=== PATIENT | male | born 1955 | race Caucasian/White ===

== ENCOUNTER 2016-05-26 15:49 | Inpatient (IN) | payer OTHER ==
[~2016-05-26] VITALS: Ht 182.9 cm; Wt 105.1 kg
[~2016-05-26 15:49] MED LIST: DEPA500T3 PO; FOLI1TAB PO; HALO5 PO; MAGN400T19 PO; TAB-TAB PO; THIA100T PO
[2016-05-26] MEDS ORDERED: MORPHINE SULFATE 8 MG/ML INJ ONE (15:54)
[2016-05-26] MEDS ORDERED: ONDANSETRON HCL 4 MG/2 ML VIAL ONE (15:54)
[2016-05-26] MEDS ORDERED: PROPOFOL 500 MG/50 ML INJ 50 ML ONE (15:54)
[2016-05-26 16:14] VITALS: O2SAT 100
[2016-05-26] MEDS ORDERED: DIPHTH/TETANUS/ACEL PERTUSSIS (BOOSTER) 0.5 ML VIAL/PFS IM ONE (16:23)
[2016-05-26] MEDS ORDERED: IOHEXOL 350 MG/ML 10 ML VIAL (for RAD DIAG) IV ONE (16:31)
--- NOTE | 2016-05-26 16:32 | RADRPT ---
EXAM DATE/TIME: 05/26/2016 15:45 [facility] COMPARISON: No previous studies available for comparison. INDICATIONS : Trauma alert, fall from tree. MEDICAL HISTORY : None. SURGICAL HISTORY : None. ENCOUNTER: Initial ACUITY: 1 day PAIN SCORE: Non-responsive. LOCATION: Right shoulder. FINDINGS: There is anterior dislocation. A fracture is not seen. The acromioclavicular joint is aligned. There is hypertrophic change at the acromioclavicular joint.. CONCLUSION: Anterior humeral head dislocation. Fausto Jay MD on May 26, 2016 at 16:29 Board Certified Radiologist. This report was verified electronically.
[2016-05-26 16:34] LABS: AUTOMATED NEUTROPHIL # 7.3 TH/MM3 (1.8-7.7); BASOPHIL # 0.1 TH/MM3 (0-0.2); BASOPHIL % 1.1 % (0.0-2.0); EOSINOPHIL # 0.3 TH/MM3 (0-0.4); EOSINOPHIL % 2.4 % (0.0-4.0); HEMATOCRIT 36.8 % (39.0-51.0); HEMO FLAGS DIFF FINAL; LYMPH % 27.2 % (9.0-44.0); LYMPHOCYTE # 3.2 TH/MM3 (1.0-4.8); MEAN CELL VOLUME 93.6 FL (80.0-100.0); MEAN CORPUSCULAR HEMOGLOBIN 32.7 PG (27.0-34.0); MEAN CORPUSCULAR HGB CONC 34.9 % (32.0-36.0); MONO % 7.2 % (0.0-8.0); NEUT % 62.1 % (16.0-70.0); PLATELET COUNT 182 TH/MM3 (150-450); RED BLOOD COUNT 3.94 MIL/MM3 (4.50-5.90); RED CELL DISTRIBUTION WIDTH 13.3 % (11.6-17.2); WHITE BLOOD COUNT 11.7 TH/MM3 (4.0-11.0)
--- NOTE | 2016-05-26 16:34 | RADRPT ---
EXAM DATE/TIME: 05/26/2016 15:45 [facility] COMPARISON: No previous studies available for comparison. INDICATIONS : Trauma alert, fall from tree. MEDICAL HISTORY : None. SURGICAL HISTORY : None. ENCOUNTER: Initial ACUITY: 1 day PAIN SCORE: Non-responsive. LOCATION: chest FINDINGS: The heart size is normal. The lungs are clear. There is anterior dislocation of the right humeral hea d. There is fracturing of the greater tubercle with a separate greater tubercle fracture fragments se en. There is some overlap of the distal left clavicle. It is difficult to determine if this is acute or chronic change. There appear to be left upper rib fractures. The age of these rib fractures is not known. CONCLUSION: 1. Acute anterior dislocation of the right humeral head with fracturing of the greater tubercle. 2. Deformity at the distal left clavicle and several left upper ribs. The age of these deformities is not known. Fausto Jay MD on May 26, 2016 at 16:31 Board Certified Radiologist. This report was verified electronically.
--- NOTE | 2016-05-26 16:36 | RADRPT ---
EXAM DATE/TIME: 05/26/2016 15:45 [facility] COMPARISON: No previous studies available for comparison. INDICATIONS : Trauma alert, fall from tree. MEDICAL HISTORY : None. SURGICAL HISTORY : None. ENCOUNTER: Initial ACUITY: 1 day PAIN SCORE: Non-responsive. LOCATION: Pelvis. FINDINGS: There appears be widening and malalignment at the pubic symphysis. The hip joints are overlying. CONCLUSION: Suspected widening of the pubic symphysis. The patient is scheduled for CT examination of the abdomen and pelvis. Fausto Jay MD on May 26, 2016 at 16:33 Board Certified Radiologist. This report was verified electronically.
[2016-05-26 16:41] LABS: I-STAT POTASSIUM 7.1 MMOL/L (3.5-4.9)
[2016-05-26 16:43] LABS: APTT (PATIENT) 24.2 SEC (24.3-30.1); PROTHROMBIN TIME - PATIENT 10.5 SEC (9.8-11.6)
--- NOTE | 2016-05-26 16:46 | RADRPT ---
EXAM DATE/TIME: 05/26/2016 16:21 [facility] COMPARISON: No previous studies available for comparison. INDICATIONS : Trauma alert. Fall from ladder. RADIATION DOSE: 54.88 CTDIvol (mGy) MEDICAL HISTORY : Unobtainable. SURGICAL HISTORY : Unobtainable. ENCOUNTER: Initial ACUITY: 1 day PAIN SCALE: 0/10 LOCATION: cranial TECHNIQUE: Multiple contiguous axial images were obtained of the head. Using automated exposure control and adj ustment of the mA and/or kV according to patient size, radiation dose was kept as low as reasonably a chievable to obtain optimal diagnostic quality images. FINDINGS: CEREBRUM: The ventricles are normal for age. No evidence of midline shift, mass lesion, or acute infarction. T here is a small 3 mm thick extra-axial linear area of increased density at the right parietal likely worsening and minimal subdural hemorrhage. POSTERIOR FOSSA: The cerebellum and brainstem are intact. The 4th ventricle is midline. The cerebellopontine angle i s unremarkable. EXTRACRANIAL: The visualized portion of the orbits is intact. SKULL: The calvaria is intact. No evidence of skull fracture. CONCLUSION: Suspected thin subdural collection over the right parietal lobe measuring no more than 3 mm. Fausto Jay MD on May 26, 2016 at 16:40 Board Certified Radiologist. This report was verified electronically.
--- NOTE | 2016-05-26 17:06 | RADRPT ---
EXAM DATE/TIME: 05/26/2016 16:21 [facility] COMPARISON: No previous studies available for comparison. INDICATIONS : Trauma alert. Fall from ladder. RADIATION DOSE: 23.86 CTDIvol (mGy) MEDICAL HISTORY : Unobtainable. SURGICAL HISTORY : Unobtainable. ENCOUNTER: Initial ACUITY: 1 day PAIN SCALE: 0/10 LOCATION: Cervical spine. TECHNIQUE: Volumetric scanning of the cervical spine was performed. Multiplanar reconstructions in the sagittal, coronal and oblique axial planes were performed. Using automated exposure control and adjustment o f the mA and/or kV according to patient size, radiation dose was kept as low as reasonably achievable to obtain optimal diagnostic quality images. FINDINGS: Axial tomograms with multiplanar reformats were performed of the cervical spine without contrast. The craniocervical and cervical vertebral body alignment is intact. Vertebral bodies and posterior el ements are intact. The facet joints are satisfactory aligned. There are no soft tissue abnormalities. Mild to moderate degenerative disease is noted at C4-5, C5-6 and C6-7. There is disc space narrowing with marginal spondylosis. There is no evidence of acute epidural abnormality. There is no evidence o f spinal stenosis. CONCLUSION: No evidence of acute bony or soft tissue trauma. Mild to moderate degenerative disc disease. Sandip Gregg MD on May 26, 2016 at 17:01 Board Certified Radiologist. This report was verified electronically.
[2016-05-26 17:10] VITALS: O2SAT 100
[2016-05-26] MEDS ORDERED: ONDANSETRON HCL 4 MG/2 ML VIAL IV PRN (17:15)
[2016-05-26] MEDS ORDERED: NALOXONE HCL 0.4 MG/ML AMP IV PRN (17:15)
[2016-05-26] MEDS ORDERED: Post-op Orders (for Pharmacy) MISC XX ONE (17:15)
[2016-05-26] MEDS ORDERED: SODIUM CHLORIDE 0.9% FLUSH 5 ML FLUSH IVF PRN (17:15)
[2016-05-26] MEDS: MORPHINE SULFATE 4 MG/ML INJ IV PRN ×2 (17:33→22:00)
[2016-05-26] MEDS: SODIUM CHLOR 0.9% 1000 ML INJ 1,000 ML IV SCH (17:34)
--- NOTE | 2016-05-26 17:40 | RADRPT ---
EXAM DATE/TIME: 05/26/2016 16:31 [facility] COMPARISON: No previous studies available for comparison. INDICATIONS : Trauma alert. Fall from ladder. IV CONTRAST: 91 cc Omnipaque 350 (iohexol) IV RADIATION DOSE: 23.59 CTDIvol (mGy) ; Combined studies - Thorax/Abdomen/Pelvis MEDICAL HISTORY : Unobtainable. SURGICAL HISTORY : Unobtainable. ENCOUNTER: Initial ACUITY: 1 day PAIN SCALE: 0/10 LOCATION: Chest. TECHNIQUE: Volumetric scanning of the chest was performed. Using automated exposure control and adjustment of t he mA and/or kV according to patient size, radiation dose was kept as low as reasonably achievable to obtain optimal diagnostic quality images. FINDINGS: LUNGS: There is no consolidation or pneumothorax. No concerning pulmonary nodule is visualized. PLEURA: There is no pleural thickening or pleural effusion. MEDIASTINUM: The heart and great vessels demonstrate no acute abnormality. There is no mediastinal or hilar lymph adenopathy. AXILLAE: Within normal limits. No lymphadenopathy. SKELETAL: Significant traumatic bone injuries noted. There is a sub-glenoid fracture dislocation of the right s houlder joint. A large avulsion fracture containing the greater tuberosity is identified. A comminuted fracture is identified through the lateral left clavicle. A fracture the scapular s pine is also noted. The humeral head remains well-seated within the glenoid fossa. Multiple left-sided rib fractures involving the first through fifth ribs are noted. MISCELLANEOUS: The visualized upper abdominal organs demonstrate no acute abnormality. Small calcified gallstones ar e identified. CONCLUSION: Significant bony trauma with fracture dislocation of the right shoulder joint, comminuted fracture of the left clavicle, fracture left scapula and multiple left upper rib fractures. No evidence of pneumothorax or significant airspace disease. No evidence of mediastinal soft tissue or vascular injury. Cholelithiasis. Sandip Gregg MD on May 26, 2016 at 17:05 Board Certified Radiologist. This report was verified electronically.
--- NOTE | 2016-05-26 17:47 | RADRPT ---
EXAM DATE/TIME: 05/26/2016 16:31 [facility] COMPARISON: CT THORAX W CONTRAST, May 26, 2016, 16:31. INDICATIONS : Trauma alert. Fall from ladder. IV CONTRAST: 91 cc Omnipaque 350 (iohexol) IV ORAL CONTRAST: No oral contrast ingested. RADIATION DOSE: 23.59 CTDIvol (mGy) ; Combined studies - Thorax/Abdomen/Pelvis MEDICAL HISTORY : Unobtainable. SURGICAL HISTORY : Unobtainable. ENCOUNTER: Initial ACUITY: 1 day PAIN SCALE: 0/10 LOCATION: All quadrants. TECHNIQUE: Volumetric scanning of the abdomen and pelvis was performed. Using automated exposure control and ad justment of the mA and/or kV according to patient size, radiation dose was kept as low as reasonably achievable to obtain optimal diagnostic quality images. FINDINGS: LOWER LUNGS: The visualized lower lungs are clear. LIVER: Homogeneous density without lesion. There is no dilation of the biliary tree. There are calcified ga llstones. SPLEEN: Normal size without lesion. PANCREAS: Within normal limits. KIDNEYS: Normal in size and shape. There is no mass, stone or hydronephrosis. ADRENAL GLANDS: Within normal limits. VASCULAR: There is no aortic aneurysm. BOWEL/MESENTERY: The stomach, small bowel, and colon demonstrate no acute abnormality. There is no free intraperitone al air or fluid. There some scattered colonic diverticula. ABDOMINAL WALL: Within normal limits. RETROPERITONEUM: There is no lymphadenopathy. BLADDER: No wall thickening or mass. REPRODUCTIVE: Within normal limits. INGUINAL: There is no lymphadenopathy or hernia. MUSCULOSKELETAL: The pubic symphysis does appear aligned. There is degenerative change in the lumbar spine. CONCLUSION: No acute abnormality is seen. There are calcified gallstones, sigmoid colon diverticula, and degenera tive change in the lumbar spine. Fausto Jay MD on May 26, 2016 at 17:41 Board Certified Radiologist. This report was verified electronically.
--- NOTE | 2016-05-26 17:58 | PD ---
HPI Chief Complaint: Trauma (Alert) Time Seen by Provider: 16:12 Travel History International Travel<30 days: No Contact w/Intl Traveler<30days: No Traveled to known affect area: No History of Present Illness HPI The patient is a approximate 65-year-old male who presents to the emergency department via EMS as a trauma alert. According to EMS the patient was trimming trees earlier tonight, was approximately 25 feet off the ground, when he fell. According to EMS the patient fell against a concrete flower bed and was noted to have abrasions across the left shoulder and upper back. The patient complains of back pain along the upper thoracic region as well as right shoulder pain with obvious deformity. The patient denies any loss of consciousness or neck pain. The patient denies any anterior chest pain, shortness breath, nausea, vomiting, or abdominal pain. He does admit to drinking alcohol earlier today. He denies any numbness or tingling in the upper or lower extremities, but does note significant right shoulder pain with limited ability to move the right shoulder. [facility] Past Medical History Medical History: Denies Significant Hx Past Surgical History Surgical History: No Previous Surgery Family History Family History: Negative Social History Alcohol Use: Yes Tobacco Use: Yes Allergies-Medications (Allergen,Severity, Reaction): Coded Allergies: No Known Allergies (Unverified , 05/26/16) Review of Systems Except as stated in HPI: all other systems reviewed are Neg HENT: No: Headaches, Neck Pain Cardiovascular: No: Chest Pain or Discomfort Respiratory: No: Shortness of Breath Gastrointestinal: No: Nausea, Vomiting, Abdominal Pain Musculoskeletal: Positive: Limited ROM, Pain Neurologic: No: Dizziness, Headache, Change in Mentation Physical Exam Narrative GENERAL: Awake, alert, up approximately 62 year-old male who presents on a backboard with cervical collar in place. SKIN: Superficial abrasions noted over the posterior left shoulder. HEAD: Atraumatic. Normocephalic. EYES: Pupils equal and round. Pupils are 3 mm bilateral and reactive. ENT: No nasal bleeding or discharge. Poor dentition. NECK: Trachea midline. No JVD. Cervical collar in place. CARDIOVASCULAR: Regular rate and rhythm. No murmur appreciated. Heart rate in the 80s. RESPIRATORY: No accessory muscle use. Clear to auscultation. Breath sounds equal bilaterally. GASTROINTESTINAL: Abdomen soft, non-tender, nondistended. No rebound tenderness. MUSCULOSKELETAL: Obvious deformity of the right shoulder. Patient is unable to abduct or extend at the right shoulder. Patient is able flex and extend the right wrist as well as sealer dry cell with the right hand. Positive right radial pulse. Patient is able to move the left upper extremity. Tenderness over the left clavicle. The patient is able flex and extend the hips and knees bilaterally. Distal pulses are intact. NEUROLOGICAL: Eyes open, alert, oriented, some repetitive questioning. Moves all 4 extremities, limited range of motion of the right upper extremity. Back: Tenderness over the right scapula and left scapula as well as abrasion noted over the posterior left shoulder. PSYCHIATRIC: Appropriate mood and affect; insight and judgment normal. Data Data Last Documented VS Vital Signs Date Time Temp Pulse Resp B/P Pulse Ox O2 Delivery O2 Flow Rate FiO2 05/26/16 16:14 100 2.00 Orders Morphine Inj (Morphine Inj) (05/26/16 15:54) Ondansetron Inj (Zofran Inj) (05/26/16 15:54) Propofol 500 Mg/50 Ml Inj (Diprivan 500 (05/26/16 15:54) I-Stat Profile (05/26/16 15:54) I-Stat Creatinine (05/26/16 15:54) Complete Blood Count With Diff (05/26/16 15:54) Prothrombin Time / Inr (Pt) (05/26/16 15:54) Act Partial Throm Time (Ptt) (05/26/16 15:54) Type And Screen (05/26/16 15:54) Alcohol (Ethanol) (05/26/16 15:54) Chest, Single Ap (05/26/16 15:54) Pelvis, Ap Only (Routine) (05/26/16 15:54) Ct Brain W/O Iv Contrast(Rout) (05/26/16 15:54) Ct Cerv Spine W/O Contrast (05/26/16 15:54) Ct Abd/Pel W Iv Contrast(Rout) (05/26/16 15:54) Ct Thorax/ Chest W Iv Contrast (05/26/16 15:54) Iv Access Insert/Monitor (05/26/16 15:54) Ecg Monitoring (05/26/16 15:54) Oximetry (05/26/16 15:54) Oxygen Administration (05/26/16 15:54) Shoulder, One View (05/26/16 ) [id number] (Booster) Inj (Boostrix (05/26/16 16:23) Admit Order (Ed Use Only) (05/26/16 16:43) Labs Laboratory Tests Test 05/26/16 16:10 White Blood Count 11.7 TH/MM3 Red Blood Count 3.94 MIL/MM3 Hemoglobin 12.9 GM/DL Bedside Hemoglobin 13.6 G/DL Hematocrit 36.8 % Bedside Hematocrit 40.0 % Mean Corpuscular Volume 93.6 FL Mean Corpuscular Hemoglobin 32.7 PG Mean Corpuscular Hemoglobin 34.9 % Concent Red Cell Distribution Width 13.3 % Platelet Count 182 TH/MM3 Mean Platelet Volume 8.1 FL Neutrophils (%) (Auto) 62.1 % Lymphocytes (%) (Auto) 27.2 % Monocytes (%) (Auto) 7.2 % Eosinophils (%) (Auto) 2.4 % Basophils (%) (Auto) 1.1 % Neutrophils # (Auto) 7.3 TH/MM3 Lymphocytes # (Auto) 3.2 TH/MM3 Monocytes # (Auto) 0.8 TH/MM3 Eosinophils # (Auto) 0.3 TH/MM3 Basophils # (Auto) 0.1 TH/MM3 CBC Comment DIFF FINAL Differential Comment Prothrombin Time 10.5 SEC Prothromb Time International 1.0 RATIO Ratio Activated Partial 24.2 SEC Thromboplast Time Bedside Sodium 139 MMOL/L Bedside Potassium 7.1 MMOL/L Bedside Chloride 105 MMOL/L Bedside Blood Urea Nitrogen 21 MG/DL Bedside Creatinine 1.0 MG/DL Bedside Glucose 102 MG/DL Ethyl Alcohol Level 127 MG/DL Blood Type A POSITIVE Antibody Screen NEGATIVE [facility] Medical Screen Exam Complete: Yes Emergency Medical Condition: Yes Medical Record Reviewed: No (Fausto Schwartz upon arrival) EKG Prior to Arrival: No Interpretation(s) CT of the thorax reveals significant traumatic bony injuries with a subglenoid fracture dislocation of the right shoulder joint. A large avulsion fracture containing the greater tuberosity is identified. A comminuted fractures identified to the left lateral clavicle. A fracture of the scapular spine is also noted. The humeral head remains well-seated within the glenoid fossa. No evidence of pneumothorax or significant airspace disease. CT of the abdomen and pelvis reveals no acute abnormality seen. There are calcified gallstones, sigmoid colon diverticula, and degenerative changes in the lumbar spine. Last Impressions Pelvis X-Ray 05/26/16 1554 Signed Impressions: Service Date/Time: Thursday, May 26, 2016 15:45 - CONCLUSION: Suspected widening of the pubic symphysis. The patient is scheduled for CT examination of the abdomen and pelvis. Fausto Jay MD Head CT 05/26/16 1554 Signed Impressions: Service Date/Time: Thursday, May 26, 2016 16:21 - CONCLUSION: Suspected thin subdural collection over the right parietal lobe measuring no more than 3 mm. Fausto Jay MD Chest X-Ray 05/26/16 1554 Signed Impressions: Service Date/Time: Thursday, May 26, 2016 15:45 - CONCLUSION: 1. Acute anterior dislocation of the right humeral head with fracturing of the greater tubercle. 2. Deformity at the distal left clavicle and several left upper ribs. The age of these deformities is not known. Fausto Jay MD Cervical Spine CT 05/26/16 1554 Signed Impressions: Service Date/Time: Thursday, May 26, 2016 16:21 - CONCLUSION: No evidence of acute bony or soft tissue trauma. Mild to moderate degenerative disc disease. Sandip Gregg MD Shoulder X-Ray 05/26/16 0000 Signed Impressions: Service Date/Time: Thursday, May 26, 2016 15:45 - CONCLUSION: Anterior humeral head dislocation. Fausto Jay MD Laboratory Tests Test 05/26/16 16:10 White Blood Count 11.7 TH/MM3 Red Blood Count 3.94 MIL/MM3 Hemoglobin 12.9 GM/DL Bedside Hemoglobin 13.6 G/DL Hematocrit 36.8 % Bedside Hematocrit 40.0 % Mean Corpuscular Volume 93.6 FL Mean Corpuscular Hemoglobin 32.7 PG Mean Corpuscular Hemoglobin 34.9 % Concent Red Cell Distribution Width 13.3 % Platelet Count 182 TH/MM3 Mean Platelet Volume 8.1 FL Neutrophils (%) (Auto) 62.1 % Lymphocytes (%) (Auto) 27.2 % Monocytes (%) (Auto) 7.2 % Eosinophils (%) (Auto) 2.4 % Basophils (%) (Auto) 1.1 % Neutrophils # (Auto) 7.3 TH/MM3 Lymphocytes # (Auto) 3.2 TH/MM3 Monocytes # (Auto) 0.8 TH/MM3 Eosinophils # (Auto) 0.3 TH/MM3 Basophils # (Auto) 0.1 TH/MM3 CBC Comment DIFF FINAL Differential Comment Prothrombin Time 10.5 SEC Prothromb Time International 1.0 RATIO Ratio Activated Partial 24.2 SEC Thromboplast Time Bedside Sodium 139 MMOL/L Bedside Potassium 7.1 MMOL/L Bedside Chloride 105 MMOL/L Bedside Blood Urea Nitrogen 21 MG/DL Bedside Creatinine 1.0 MG/DL Bedside Glucose 102 MG/DL Ethyl Alcohol Level 127 MG/DL Blood Type A POSITIVE Antibody Screen NEGATIVE Differential Diagnosis Differential diagnosis includes intracranial hemorrhage, skull fracture, scapular fracture, thoracic spine fracture, pneumothorax, hemothorax, shoulder dislocation, shoulder fracture, humeral fracture, multisystem trauma. Narrative Course ATLS protocol was followed. The trauma surgeon, Dr. Noland, was present when the patient arrived. Upon arrival the patient's airway, breathing, circulation were intact. 2 large-bore IVs were established, labs were drawn and sent, and the patient was placed on cardiac telemetry monitoring and continuous pulse oximetry monitoring. Chest x-ray, pelvis x-ray, and right shoulder x-ray were obtained. The patient did have a fracture/dislocation of the right shoulder. The patient had conscious sedation with respiratory therapy at bedside, on O2 via nasal cannula, with 150 mg of propofol. We were unable to reduce the right shoulder fracture/dislocation with external rotation and abduction, multiple attempts were performed by myself and Dr. Petty. Therefore, the patient was placed in position of a fever, patient was log rolled off the backboard, the back was inspected. The patient then went to the CT suite with the trauma team. The patient was noted to have a thin subdural hemorrhage as well as right shoulder fracture/dislocation and left scapula fracture. The patient went straight to [facility]. Multiple calls were placed to the orthopedist public relations representative, Dr. Adam, in an attempt to notify him that reduction was unsuccessful in the trauma room and the patient went straight to [facility]. The patient will need reduction either in IM and/or the operating room with his fracture. Patient will also need consultation with neurosurgery regarding the thin subdural hemorrhage. The patient was admitted to the trauma team. Procedures Procedure Narrative After the risks and benefits were discussed the following procedure was performed: MODERATE SEDATION: The patient was placed on a veneer clipper and pulse oximetry. An ambu bag and suction was immediately available at bedside. The patient was monitored by the nurse. Oxygen saturation, heart rate and blood pressure were monitored. Procedural sedation was acheived using propofol 150 mg. The patient was observed until awake and alert. Procedural Sedation time in attendance was 30 minutes. Attempted reduction of the right shoulder was performed by myself and Dr. Noland, we are unable to reduce the right shoulder fracture/dislocation with abduction and external rotation with mild traction. Multiple attempts were performed by myself and Dr. Petty, therefore, we aborted attempts to the patient could go to the CT suite. Trauma Alert - Level One Trauma Alert Level One: Full trauma team activate Time Surgeon Summoned: 15:28 (Surgeon asked to come in) Physician Communication I discussed the patient with the trauma surgeon who agrees with admission. Diagnosis Diagnosis: Primary Impression: Subdural hemorrhage Additional Impressions: Fracture dislocation of right shoulder joint Qualified Code: S42.91XA - Fracture dislocation of right shoulder joint, closed, initial encounter Scapular fracture Qualified Code: S42.102A - Closed fracture of left scapula, unspecified part of scapula, initial encounter Admitting Physician Requests: Admit Condition: Stable Darryn Rodriguez MD May 26, 2016 17:58
[2016-05-26 18:00] VITALS: BP 116/73; PULSE 83; RESP 22; TEMP 97.8; O2SAT 99
[2016-05-26] MEDS: PANTOPRAZOLE SODIUM 40 MG VIAL IV SCH (18:00)
--- NOTE | 2016-05-26 18:20 | MH ---
cc: VIRGINIA CRAIN MD DATE OF ADMISSION 05/26/[address] Crain. ADMISSION DIAGNOSIS Fall from a palm tree onto the concrete, loss of consciousness, brain concussion, right scapular fracture and right humerus luxation, multiple bilateral rib fractures, left clavicle fracture, bilateral pulmonary contusions. HISTORY OF THE PRESENT ILLNESS This 67-nei-lhfi-old male was apparently trimming a palm tree when he fell about 20 feet onto the concrete rim around the palm tree. The patient hit down with the right shoulder. The patient was brought in as priority one trauma alert on spinal board with C-collar in place complaining about severe right arm pain. PAST MEDICAL HISTORY The patient's medical history is negative. PAST SURGICAL HISTORY Surgical history is negative. SOCIAL HISTORY He is a smoker, and states drinks some, too much today. PHYSICAL EXAMINATION GENERAL: Reveals an unfortunate 88-[id number]-hmnr-old male. HEENT: Normocephalic. No trauma to the head. Pupils equally reactive. Extraocular muscles intact. No hemotympanum. No Petersen's sign. No raccoon eyes. NECK: The neck is examined by removing the anterior portion of the C collar. The patient does not complain about any neck pain. CHEST: Bilateral breath sounds. On palpation tender over the right and left upper chest, although I do not feel any crepitations or crepitus it is conceivable the patient has rib fractures considering the nature of the fall. ABDOMEN: Soft. Active bowel sounds. No rebound or guarding. Hemodynamically the patient is stable. HEART: Regular rhythm. EXTREMITIES: The patient has bilateral femoral, popliteal, dorsalis pedis, posterior tibial pulses. Lower extremities are trauma free. Upper extremities, left arm is fine. On the right side the patient has an acute anterior dislocation of the right shoulder and he has a fracture of the right scapula with of course making reduction of this shoulder impossible in the emergency room. NEUROLOGIC: The patient's Gabriel Coma Scale is about 14. He is very repetitive in questions although he is oriented in time and space. Appears to be occasionally confused, this is consistent with a brain concussion. He is complaining mainly of right arm pain. IMPRESSION AND RECOMMENDATIONS The patient with fall from a tree. The patient will be resuscitated according to trauma principles. He will taken to the CT scan for further workup. Injuries as we know it now is brain concussion, amnesia, right shoulder injury with scapular fracture and dislocation of the right shoulder, serial rib fractures, left clavicle fracture. Critical time 35 minutes. [place] WRIGHT /5:09 PM /5:59 PM
[2016-05-26] MEDS ORDERED: MIDAZOLAM HCL 5 MG/ML VIAL (1 ML) ONE ×2 (18:32→18:43)
[2016-05-26] MEDS ORDERED: MIDAZOLAM HCL 5 MG/ML VIAL (1 ML) IV ONE (19:00)
[2016-05-26 19:33] LABS: BICARBONATE 25.6 MEQ/L (21.0-32.0); POTASSIUM 4.1 MEQ/L (3.5-5.1)
--- NOTE | 2016-05-26 19:51 | PD.CONS ---
HPI Service Neurosurgery Consult Requested By trauma Reason for Consult SDH Primary Care Physician No Primary Care Physician History of Present Illness Middle age male fell from palm tree onto concrete, was brought in intoxicated with ETOH and repeating himself, GCS 14. He had sedation for attempt at right shoulder dislocation repair but remains arousable and following commands. Review of Systems ROS Limitations: Intoxication, Altered Mental Status Constitutional: DENIES: Diaphoretic episodes, Fatigue, Fever, Weight gain, Weight loss, Chills, Dizziness, Change in appetite, Night Sweats Endocrine: DENIES: Heat/cold intolerance, Polydipsia, Polyuria, Polyphagia Eyes: DENIES: Blurred vision, Diplopia, Eye inflammation, Eye pain, Vision loss , Photosensitivity, Double Vision Ears, nose, mouth, throat: DENIES: Tinnitus, Hearing loss, Vertigo, Nasal discharge, Oral lesions, Throat pain, Hoarseness, Ear Pain, Running Nose, Epistaxis, Sinus Pain, Toothache, Odynophagia Respiratory: DENIES: Apneas, Cough, Snoring, Wheezing, Hemoptysis, Sputum production, Shortness of breath Cardiovascular: COMPLAINS OF: Chest pain (right shoulder disclocation) Gastrointestinal: DENIES: Abdominal pain, Black stools, Bloody stools, Constipation, Diarrhea, Nausea, Vomiting, Difficulty Swallowing, Anorexia Genitourinary: DENIES: Sexual dysfunction, Urinary frequency, Urinary incontinence, Urgency, Hematuria, Dysuria, Nocturia, Penile Discharge, Testicular Pain, Testicular Swelling Musculoskeletal: COMPLAINS OF: Muscle aches, Stiffness, Joint Swelling Integumentary: DENIES: Abnormal pigmentation, Nail changes, Pruritus, Rash Neurologic: COMPLAINS OF: Localized weakness (right shoulder), DENIES: Abnormal gait, Headache, Paresthesias, Seizures, Speech Problems, Tremor, Poor Balance Psychiatric: COMPLAINS OF: Confusion Past Family Social History Allergies: Coded Allergies: No Known Allergies (Unverified , 05/26/16) Past Medical History Denies medical pbs Family History nc Social History Lives with his Physical Exam Vital Signs Vital Signs Date Time Temp Pulse Resp B/P Pulse Ox O2 Delivery O2 Flow Rate FiO2 05/26/16 18:00 83 05/26/16 18:00 97.8 83 22 116/73 99 05/26/16 17:38 20 05/26/16 16:14 100 2.00 Physical Exam Arousable to stimulation, pupils 2mm reactive, EOMI, face symmetric Denies neck or back pain, distracting right shoulder pain, Fluent speech, confused on the exact location and year. Moving both hands and both lower extremities appropriately, right shoulder immobilized by sling and pain. Denied radicular numbness No Dowling sign, no Clonus, no Babinski Skin warm and dry, abd obese soft, no peripheral edema. Laboratory Laboratory Tests Test 05/26/16 05/26/16 16:10 18:53 White Blood Count 11.7 Red Blood Count 3.94 Hemoglobin 12.9 Bedside Hemoglobin 13.6 Hematocrit 36.8 Bedside Hematocrit 40.0 Mean Corpuscular Volume 93.6 Mean Corpuscular Hemoglobin 32.7 Mean Corpuscular Hemoglobin 34.9 Concent Red Cell Distribution Width 13.3 Platelet Count 182 Mean Platelet Volume 8.1 Neutrophils (%) (Auto) 62.1 Lymphocytes (%) (Auto) 27.2 Monocytes (%) (Auto) 7.2 Eosinophils (%) (Auto) 2.4 Basophils (%) (Auto) 1.1 Neutrophils # (Auto) 7.3 Lymphocytes # (Auto) 3.2 Monocytes # (Auto) 0.8 Eosinophils # (Auto) 0.3 Basophils # (Auto) 0.1 CBC Comment DIFF FINAL Differential Comment Prothrombin Time 10.5 Prothromb Time International 1.0 Ratio Activated Partial 24.2 Thromboplast Time Bedside Sodium 139 Bedside Potassium 7.1 Bedside Chloride 105 Bedside Blood Urea Nitrogen 21 Bedside Creatinine 1.0 Bedside Glucose 102 Ethyl Alcohol Level 127 Blood Type A POSITIVE Antibody Screen NEGATIVE Sodium Level 141 Potassium Level 4.1 Chloride Level 108 Carbon Dioxide Level 25.6 Anion Gap 7 Blood Urea Nitrogen 14 Creatinine 0.88 Estimat Glomerular Filtration 75 Rate Random Glucose 121 Calcium Level 7.6 Result Diagram: 05/26/16 1610 05/26/16 1853 Imaging Last Impressions Pelvis X-Ray 05/26/16 1914 Signed Impressions: Service Date/Time: Thursday, May 26, 2016 15:45 - CONCLUSION: Suspected widening of the pubic symphysis. The patient is scheduled for CT examination of the abdomen and pelvis. Fausto Jay MD Head CT 05/26/16 1554 Signed Impressions: Service Date/Time: Thursday, May 26, 2016 16:21 - CONCLUSION: Suspected thin subdural collection over the right parietal lobe measuring no more than 3 mm. Fausto Jay MD Chest X-Ray 05/26/16 1554 Signed Impressions: Service Date/Time: Thursday, May 26, 2016 15:45 - CONCLUSION: 1. Acute anterior dislocation of the right humeral head with fracturing of the greater tubercle. 2. Deformity at the distal left clavicle and several left upper ribs. The age of these deformities is not known. Fausto Jay MD Chest CT 05/26/16 1554 Signed Impressions: Service Date/Time: Thursday, May 26, 2016 16:31 - CONCLUSION: Significant bony trauma with fracture dislocation of the right shoulder joint, comminuted fracture of the left clavicle, fracture left scapula and multiple left upper rib fractures. No evidence of pneumothorax or significant airspace disease. No evidence of mediastinal soft tissue or vascular injury. Cholelithiasis. Sandip Gregg MD Cervical Spine CT 05/26/16 1554 Signed Impressions: Service Date/Time: Thursday, May 26, 2016 16:21 - CONCLUSION: No evidence of acute bony or soft tissue trauma. Mild to moderate degenerative disc disease. Sandip Gregg MD Abdomen/Pelvis CT 05/26/16 1554 Signed Impressions: Service Date/Time: Thursday, May 26, 2016 16:31 - CONCLUSION: No acute abnormality is seen. There are calcified gallstones, sigmoid colon diverticula , and degenerative change in the lumbar spine. Fausto Jay MD Shoulder X-Ray 05/26/16 0000 Signed Impressions: Service Date/Time: Thursday, May 26, 2016 15:45 - CONCLUSION: Anterior humeral head dislocation. Fausto Jay MD Assessment and Plan Diagnosis: (1) Subdural hemorrhage Plan: Concussion and ETOH intoxication with distracting right shoulder and rib fx pain but with no evidence of left sided neglect or weakness. Plan for OR tomorrow for the right shoulder after a follow up head CT of the head to follow the small SDH. Will follow. DVT/PUD/rehab services ordered per protocol. ICD Code: I62.00 Amandeep Saez May 26, 2016 19:51
[2016-05-26 20:00] VITALS: PULSE 86
[2016-05-26] MEDS: SODIUM CHLORIDE 0.9% FLUSH 5 ML FLUSH IVF SCH (21:00)
[2016-05-26] MEDS: DOCUSATE SODIUM 100 MG CAP PO SCH (21:00)
[2016-05-26] MEDS: levETIRAcetam INJ 500 MG in SODIUM CHLORIDE 0.9% INJ 100 ML IV SCH (22:14)
[2016-05-27] VITALS (14 sets, daily range): BP systolic 93–155; BP diastolic 54–83; PULSE 87–101; RESP 14–27; TEMP 97.9–99.1; O2SAT 92–97
[2016-05-27] MEDS ORDERED: ESCI20TA PO (00:24)
[2016-05-27] MEDS ORDERED: BUPR1TAB29 PO (00:26)
[2016-05-27] MEDS ORDERED: TRAZ100T4 PO (00:26)
[2016-05-27] MEDS ORDERED: LITH300T PO (00:26)
[2016-05-27] MEDS: MORPHINE SULFATE 4 MG/ML INJ IV PRN ×3 (01:31→17:07)
[2016-05-27] MEDS: SODIUM CHLOR 0.9% 1000 ML INJ 1,000 ML IV SCH ×2 (03:52→11:45)
[2016-05-27 04:35] LABS: AUTOMATED NEUTROPHIL # 9.4 TH/MM3 (1.8-7.7); BASOPHIL % 0.3 % (0.0-2.0); EOSINOPHIL % 0.2 % (0.0-4.0); HEMATOCRIT 34.1 % (39.0-51.0); HEMO FLAGS DIFF FINAL; LYMPH % 10.4 % (9.0-44.0); LYMPHOCYTE # 1.2 TH/MM3 (1.0-4.8); MEAN CELL VOLUME 93.6 FL (80.0-100.0); MEAN CORPUSCULAR HGB CONC 35.3 % (32.0-36.0); MONO % 10.9 % (0.0-8.0); NEUT % 78.2 % (16.0-70.0); PLATELET COUNT 200 TH/MM3 (150-450); RED BLOOD COUNT 3.64 MIL/MM3 (4.50-5.90); RED CELL DISTRIBUTION WIDTH 13.5 % (11.6-17.2); WHITE BLOOD COUNT 12.1 TH/MM3 (4.0-11.0)
[2016-05-27 05:11] LABS: BICARBONATE 25.4 MEQ/L (21.0-32.0); POTASSIUM 4.1 MEQ/L (3.5-5.1)
[2016-05-27 05:14] LABS: INDIRECT BILIRUBIN 0.5 MG/DL (0.0-0.8); TOTAL BILIRUBIN ADULT 0.7 MG/DL (0.2-1.0)
--- NOTE | 2016-05-27 05:25 | RADRPT ---
EXAM DATE/TIME: 05/27/2016 05:11 [facility] COMPARISON: CT BRAIN W/O CONTRAST, May 26, 2016, 16:21. INDICATIONS : Follow up hemorrhage. RADIATION DOSE: 61.58 CTDIvol (mGy) MEDICAL HISTORY : None SURGICAL HISTORY : None. ENCOUNTER: Subsequent ACUITY: 1 day PAIN SCALE: 6/10 LOCATION: cranial TECHNIQUE: Multiple contiguous axial images were obtained of the head. Using automated exposure control and adj ustment of the mA and/or kV according to patient size, radiation dose was kept as low as reasonably a chievable to obtain optimal diagnostic quality images. FINDINGS: CEREBRUM: Small right parietal extra-axial hematoma is again identified. The seen more posterior lead than on t he comparison study, measuring 3 mm in thickness. No evidence of mass effect or midline shift. The ve ntricles are normal for age POSTERIOR FOSSA: The cerebellum and brainstem are intact. The 4th ventricle is midline. The cerebellopontine angle i s unremarkable. EXTRACRANIAL: The visualized portion of the orbits is intact. SKULL: The calvaria is intact. No evidence of skull fracture. CONCLUSION: Small right parietal extra-axial hemorrhage is seen more posteriorly than on the comparison study but unchanged in thickness. Oni Fountain MD on May 27, 2016 at 5:15 Board Certified Radiologist. This report was verified electronically.
[2016-05-27] MEDS: METHOCARBAMOL 500 MG TAB PO SCH ×3 (07:00→22:00)
[2016-05-27] MEDS ORDERED: MIDAZOLAM HCL 2 MG/2 ML VIAL ONE (07:07)
[2016-05-27] MEDS ORDERED: SODIUM CHLORIDE 0.9% FLUSH 5 ML FLUSH IVF PRN (07:45)
[2016-05-27] MEDS ORDERED: diphenhydrAMINE HCL 25 MG CAP PO PRN (07:45)
[2016-05-27] MEDS ORDERED: MORPHINE SULFATE 4 MG/ML INJ IV PUSH PRN (07:45)
--- NOTE | 2016-05-27 07:52 | PD.OP ---
cc: Abran Smith MD Operative Report Date of Surgery: May 27, 2016 Preoperative Diagnosis: Right shoulder dislocation, right shoulder greater tuberosity fracture Postoperative Diagnosis: Same Procedure: Closed reduction with manipulation under anesthesia right shoulder dislocation Closed reduction of right proximal humerus greater tuberosity fracture with manipulation Surgeon: Abran Smith Garageman(s): DUNIA Vyas PA-C Operation and Findings: Joseph is a 60-year-old male who sustained an injury to his right arm yesterday resulting in fracture dislocation of his right shoulder. He was seen by Dr. Foster and attempted closed reduction was performed in the intensive care unit yesterday. Reduction was unsuccessful. I have been consulted for definitive treatment of fracture dislocation of right shoulder. Informed consent was obtained preoperatively. Patient was seen and examined. He also had some tenderness over a left clavicle fracture as well as tenderness over the pubic symphysis sprain. He was brought to operating room. He was given IV sedation and general anesthesia. Timeout procedure was performed. Procedure began with examination of shoulder under fluoroscopy. The dislocation and fracture were visualized. Attention was now turned towards dislocation. Traction was applied. The arm was gently manipulated to avoid further injury to the articular surface. The humeral head was distracted away from the glenoid. The glenohumeral joint was now reduced. Fluoroscopy confirmed well aligned glenohumeral joint. Attention was turned towards the fracture. The shoulder was gently rotated. The shoulder and humerus were reduced up to the greater tuberosity. Fluoroscopy confirmed well aligned fracture and concentrically reduced joint. Patient was placed into a sling. He was transferred to recovery room in stable condition. Abran Smith MD May 27, 2016 07:52
[2016-05-27] MEDS ORDERED: HYDR-3288 PO (07:53)
--- NOTE | 2016-05-27 08:28 | RADRPT ---
EXAM DATE/TIME: 05/27/2016 07:32 [facility] COMPARISON: No previous studies available for comparison. INDICATIONS: Post-op closed reduction right shoulder fracture. MEDICAL HISTORY: None. SURGICAL HISTORY: None. ENCOUNTER: Subsequent ACUITY: 2 days PAIN SCORE: Non-responsive. LOCATION: Right upper extremity FINDINGS: Alignment is anatomic in the AP and oblique projection. Fracture is not appreciated. CONCLUSION: Anatomic alignment. Juan C Izquierdo MD FACR on May 27, 2016 at 7:45 Board Certified Radiologist. This report was verified electronically.
[2016-05-27] MEDS ORDERED: SODIUM CHLORIDE 0.9% FLUSH 5 ML FLUSH IVF SCH (09:00)
[2016-05-27] MEDS: SODIUM CHLORIDE 0.9% FLUSH 5 ML FLUSH IVF SCH ×2 (09:00→20:41)
[2016-05-27] MEDS: LACTULOSE SYRUP 20 GM/30 ML CUP PO SCH (09:39)
[2016-05-27] MEDS: levETIRAcetam INJ 500 MG in SODIUM CHLORIDE 0.9% INJ 100 ML IV SCH ×2 (09:39→20:41)
[2016-05-27] MEDS: DOCUSATE SODIUM 100 MG CAP PO SCH ×2 (09:39→20:41)
[2016-05-27] MEDS: LIDOCAINE HCL 5% PATCH TD SCH (09:39)
[2016-05-27] MEDS ORDERED: PROPOFOL 200 MG/20 ML AMP IV ONE (12:00)
--- NOTE | 2016-05-27 13:31 | HHI.CCPN ---
Subjective Remarks/Hospital Course TD#1-multi trauma right shoulder injury left scapula fx SDH multiple rib fx right post op from shoulder surgery right resting comfortably-no complaints Objective Vital Signs Date Time Temp Pulse Resp B/P Pulse Ox O2 Delivery O2 Flow Rate FiO2 05/27/16 12:00 95 05/27/16 12:00 98.5 23 135/77 95 05/27/16 10:04 Nasal Cannula 2.00 Intake and Output 05/26/16 05/26/16 05/27/16 08:00 16:00 00:00 Intake Total 800 ml Output Total 450 ml Balance 350 ml Result Diagram: 05/27/16 0341 05/27/16 0341 Objective Remarks GCS 15 abdomen-soft benign Urinary Catheter: Yes Assessment to: Continue Son insert reason: Surgical/Invasive Proced Vascular Central Line Catheter: No A/P Assessment and Plan Remains stable pain control IS f/u CXR oob ambulate keep in ICU for another [address] head stable Vandana Sanders MD May 27, 2016 13:31
--- NOTE | 2016-05-27 13:48 | EKG ---
Date Performed: 05/27/2016 Time Performed: 06:37:42 PTAGE: 60 years EKG: Sinus rhythm . Normal ECG NO PREVIOUS TRACING DOCTOR: Hunter Lopez Interpretating Date/Time 05/27/2016 13:46:23
[2016-05-27] MEDS: ACETAMINOPHEN/HYDROcodone 325 MG/7.5 MG TAB PO PRN ×2 (13:55→18:18)
[2016-05-27] MEDS: PANTOPRAZOLE SODIUM 40 MG VIAL IV SCH (17:07)
[2016-05-27] MEDS ORDERED: HYDROmorphone HCL PCA 6 MG/30 ML IV SCH (19:30)
[2016-05-27] MEDS ORDERED: NALOXONE HCL 0.4 MG/ML AMP IV PRN (19:30)
[2016-05-27] MEDS: MAGNESIUM HYDROXIDE SUSP 30 ML CUP PO SCH (20:41)
[2016-05-27] MEDS: RESP: ALBUTEROL 2.5 MG/IPRATROPIUM 0.5 MG NEB (PRN) NEB (20:45)
[2016-05-27] MEDS: REMOVE OLD PATCH T-DERMAL SCH (21:00)
[2016-05-27] MEDS: PCA - TOTAL MG DILAUDID DELIVERED PER SHIFT OTHER SCH (22:00)
[2016-05-28] VITALS (15 sets, daily range): BP systolic 133–164; BP diastolic 70–85; PULSE 90–102; RESP 20–28; TEMP 98.3–100.1; O2SAT 91–94
[2016-05-28] MEDS: RESP: ALBUTEROL 2.5 MG/IPRATROPIUM 0.5 MG NEB (PRN) NEB ×4 (00:04→21:51)
[2016-05-28 04:28] LABS: AUTOMATED NEUTROPHIL # 13.7 TH/MM3 (1.8-7.7); BASOPHIL # 0.1 TH/MM3 (0-0.2); BASOPHIL % 0.4 % (0.0-2.0); EOSINOPHIL # 0.1 TH/MM3 (0-0.4); EOSINOPHIL % 0.6 % (0.0-4.0); HEMATOCRIT 33.7 % (39.0-51.0); HEMO FLAGS DIFF FINAL; LYMPH % 6.5 % (9.0-44.0); LYMPHOCYTE # 1.1 TH/MM3 (1.0-4.8); MEAN CELL VOLUME 94.3 FL (80.0-100.0); MEAN CORPUSCULAR HEMOGLOBIN 32.1 PG (27.0-34.0); MONO % 9.2 % (0.0-8.0); NEUT % 83.3 % (16.0-70.0); PLATELET COUNT 178 TH/MM3 (150-450); RED BLOOD COUNT 3.57 MIL/MM3 (4.50-5.90); RED CELL DISTRIBUTION WIDTH 13.2 % (11.6-17.2); WHITE BLOOD COUNT 16.4 TH/MM3 (4.0-11.0)
[2016-05-28 04:47] LABS: ALT (GPT) 44 U/L (12-78); ANION GAP 7 MEQ/L (5-15); AST (GOT) 74 U/L (15-37); BICARBONATE 28.1 MEQ/L (21.0-32.0); BLOOD UREA NITROGEN 13 MG/DL (7-18); CHLORIDE 102 MEQ/L (98-107); GLOMERULAR FILTRATION RATE 98 ML/MIN (>89); MAGNESIUM 2.2 MG/DL (1.5-2.5); POTASSIUM 3.8 MEQ/L (3.5-5.1); SODIUM (NA) 137 MEQ/L (136-145)
[2016-05-28 04:48] LABS: ALKALINE PHOSPHATASE 104 U/L (45-117); TOTAL BILIRUBIN ADULT 0.8 MG/DL (0.2-1.0)
[2016-05-28] MEDS: PCA - TOTAL MG DILAUDID DELIVERED PER SHIFT OTHER SCH ×3 (06:00→22:00)
--- NOTE | 2016-05-28 06:22 | RADRPT ---
EXAM DATE/TIME: 05/28/2016 03:42 [facility] COMPARISON: No previous studies available for comparison. INDICATIONS : Shortness of breath. MEDICAL HISTORY : None. SURGICAL HISTORY : None. ENCOUNTER: Subsequent ACUITY: 3 days PAIN SCORE: Non-responsive. LOCATION: Bilateral chest FINDINGS: Multiple upper left rib fractures noted. Left scapular fracture. There is extrapleural hematoma on th e left, mild. Mild basilar airspace disease increased from May 26. No pneumothorax identified. Card iomediastinal silhouette within normal limits. CONCLUSION: 1. Multiple upper left rib fractures with small extrapleural hematoma. Minimal basilar airspace disea se or atelectasis. No pneumothorax. Deep Domínguez MD on May 28, 2016 at 6:19 Board Certified Radiologist. This report was verified electronically.
[2016-05-28] MEDS: METHOCARBAMOL 500 MG TAB PO SCH ×3 (06:33→22:14)
--- NOTE | 2016-05-28 07:45 | PD.ORT.PN ---
Subjective Subjective Remarks POD 1 s/p closed reduction right proximal humerus fx/dislocation -doing well. pain controlled. no complaints. Objective Vitals Vital Signs Date Time Temp Pulse Resp B/P Pulse Ox O2 Delivery O2 Flow Rate FiO2 05/28/16 06:00 96 05/28/16 06:00 28 05/28/16 04:00 98.7 98 28 164/72 93 05/28/16 04:00 95 05/28/16 02:00 98 05/28/16 00:19 93 Venturi Mask 6.00 50 05/28/16 00:00 102 05/28/16 00:00 98.9 96 21 141/78 91 05/27/16 22:00 96 05/27/16 22:00 28 05/27/16 21:40 28 05/27/16 21:10 28 05/27/16 20:00 98.4 92 27 155/79 92 05/27/16 20:00 92 05/27/16 19:21 94 Nasal Cannula 2.00 05/27/16 19:00 92 Nasal Cannula 3.00 05/27/16 18:00 87 05/27/16 16:00 97.9 87 26 140/80 92 05/27/16 16:00 87 05/27/16 14:00 90 05/27/16 12:00 95 05/27/16 12:00 98.5 95 23 135/77 95 05/27/16 10:04 96 Nasal Cannula 2.00 05/27/16 10:00 90 05/27/16 08:30 88 16 146/87 95 Nasal Cannula 3 05/27/16 08:15 90 16 143/86 95 Nasal Cannula 3 05/27/16 08:00 99 05/27/16 08:00 90 16 135/85 95 Nasal Cannula 3 05/27/16 08:00 98.1 89 22 141/83 92 05/27/16 07:48 98.8 92 16 136/79 94 Nasal Cannula 3 I/O 05/27/16 05/27/16 05/27/16 05/28/16 05/28/16 05/28/16 07:00 15:00 23:00 07:00 15:00 23:00 Intake Total 782 ml 1532 ml 530 ml 315 ml Output Total 825 ml 1000 ml 700 ml 550 ml Balance -43 ml 532 ml -170 ml -235 ml Intake Oral 1200 ml 420 ml 240 ml IV Total 782 ml 332 ml 110 ml 75 ml Output Urine Total 825 ml 1000 ml 700 ml 550 ml Stool Total 0 ml 0 ml # Bowel Movements 0 0 Result Diagram: 05/28/1633705/28/16337 Imaging Last 24 hours Impressions Chest X-Ray 05/28/16 0600 Signed Impressions: Service Date/Time: Saturday, May 28, 2016 03:42 - CONCLUSION: 1. Multiple upper left rib fractures with small extrapleural hematoma. Minimal basilar airspace disease or atelectasis. No pneumothorax. Deep Domínguez MD Objective Remarks RUE:+ ultra sling. nvi distally Assessment & Plan Assessment and Plan 1) Right Proximal Humerus fx dislocation s/p closed reduction - POD 1 -NWB -maintain ulatra sling at all times -no ROM -re-xray today -if fracture still well aligned on xray, will proceed with nonop treatment of fractures -plan for f/u in office with Lynn or SOFIA in 2 weeks Edison Herzog May 28, 2016 07:45
[2016-05-28] MEDS: SODIUM CHLORIDE 0.9% FLUSH 5 ML FLUSH IVF SCH ×2 (08:39→19:44)
[2016-05-28] MEDS: LACTULOSE SYRUP 20 GM/30 ML CUP PO SCH (08:42)
[2016-05-28] MEDS: LIDOCAINE HCL 5% PATCH TD SCH (08:42)
[2016-05-28] MEDS: DOCUSATE SODIUM 100 MG CAP PO SCH ×2 (08:42→19:43)
[2016-05-28] MEDS: levETIRAcetam INJ 500 MG in SODIUM CHLORIDE 0.9% INJ 100 ML IV SCH ×2 (08:42→19:44)
[2016-05-28] MEDS: SODIUM CHLOR 0.9% 1000 ML INJ 1,000 ML IV SCH ×3 (08:43→20:00)
--- NOTE | 2016-05-28 16:43 | HHI.CCPN ---
Subjective Brief History SHISHMAREF IRA: The patient is a 60-year-old male who presents to the emergency department via EMS as a trauma alert. According to EMS the patient was trimming trees earlier tonight, was approximately 25 feet off the ground, when he fell. According to EMS the patient fell against a concrete flower bed and was noted to have abrasions across the left shoulder and upper back. The patient complains of back pain along the upper thoracic region as well as right shoulder pain with obvious deformity. The patient denies any loss of consciousness or neck pain. The patient denies any anterior chest pain, shortness breath, nausea, vomiting, or abdominal pain. He does admit to drinking alcohol earlier today. He denies any numbness or tingling in the upper or lower extremities, but does note significant right shoulder pain with limited ability to move the right shoulder. PMHx: Smoker. EtOH. INJURIES: SDH ( small right parietal extra-axial hemorrhage) LEFT clavicle fx LEFT Scapula fx RIGHT Shoulder dislocation LEFT upper rib fxs Gallstones Diverticula Procedures: 05/26: Reduction attempt at bedside under conscious sedation 05/27: Closed reduction of RIGHT shoulder. Closed reduction of RIGHT proximal humerus Consults: Orthopedics. Neurosurgery. 24 Hour Review/Hospital Course 05/27/2016 TD#1-multi trauma right shoulder injury left scapula fx SDH multiple rib fx right post op from shoulder surgery right resting comfortably-no complaints 05/28/2016: PTD: 2 Pt is doing well. Noted to be out of bed in a recliner chair. On a Ventimask, Sats equaling 91-93%. Patient does have a history of smoking. ( Carlee Crespo) Objective Vital Signs Date Time Temp Pulse Resp B/P Pulse Ox O2 Delivery O2 Flow Rate FiO2 05/28/16 14:08 24 05/28/16 14:00 100 05/28/16 12:00 98.3 154/79 92 05/28/16 09:06 Venturi Mask 6.00 50 Intake and Output 05/27/16 05/27/16 05/28/16 08:00 16:00 00:00 Intake Total 782 ml 1532 ml 530 ml Output Total 825 ml 1000 ml 700 ml Balance -43 ml 532 ml -170 ml (Carlee Crespo) Result Diagram: 05/28/16 0338 05/28/16 0338 Imaging Last 24 hours Impressions Chest X-Ray 05/28/16 0600 Signed Impressions: Service Date/Time: Saturday, May 28, 2016 03:42 - CONCLUSION: 1. Multiple upper left rib fractures with small extrapleural hematoma. Minimal basilar airspace disease or atelectasis. No pneumothorax. Deep Domínguez MD Objective Remarks GENERAL: This is a 60-year-old male sitting in a recliner chair on a Ventimask. SKIN: Warm and dry. HEAD: Atraumatic. Normocephalic. EYES: PERRLA ENT: No nasal bleeding or discharge. Mucous membranes pink and moist. NECK: Trachea midline. No JVD. CARDIOVASCULAR: Regular rate and rhythm. RESPIRATORY: Ventimask . No accessory muscle use. Lungs are clear to auscultation but diminished. Breath sounds equal bilaterally. No distress or dyspnea. GASTROINTESTINAL: BS + x 4 quads. Abdomen soft, non-tender, nondistended. MUSCULOSKELETAL: Extremities without cyanosis, or edema. + peripheral pulses x 4 extremities. Warm with good capillary refill and sensation. MAEW. NEUROLOGICAL: Awake and alert. Normal speech and pattern. (Carlee Crespo) Urinary Catheter Assessment Urinary Catheter: Yes Assessment to: Continue (Carlee Crespo) Vascular Central Line Catheter Vascular Central Line Catheter: No (Carlee Crespo) Assessment and Plan Assessment: (1) Hypokalemia ICD Code: E87.6 Status: Acute (2) Tobacco abuse ICD Code: Z72.0 Status: Acute (3) Thrombocytopenia ICD Code: D69.6 Status: Acute (4) Hypomagnesemia ICD Code: E83.42 Status: Acute (5) Scapular fracture ICD Code: S42.109A Status: Acute (6) Fracture dislocation of right shoulder joint ICD Code: S42.91XA Status: Acute (7) Subdural hemorrhage ICD Code: I62.00 Status: Acute Plan SHISHMAREF IRA: This is a 60-year-old male who sustained a fall from a palm tree of about 20 feet onto the concrete. He landed on his right shoulder. PMHx: Smoker. EtOH INJURIES: SDH ( small right parietal extra-axial hemorrhage) LEFT clavicle fx LEFT Scapula fx RIGHT Shoulder dislocation LEFT upper rib fxs Gallstones Diverticula Procedures: 05/26: Reduction attempt at bedside under conscious sedation 05/27: Closed reduction of RIGHT shoulder. Closed reduction of RIGHT proximal humerus Consults: Orthopedics. Neurosurgery Diet: Regular 1800 ADA diet. Tolerating po diet. Encourage good po intake with each meal. Pulmonary: Encourage good pulmonary toileting. IS and acapella at bedside and pt encouraged to use. Rationale for use explained to patient, and verbalized understanding. EZ pap. PAIN Management: Fenton. Morphine IV. Robaxin po. Lidoderm patch. Activity: OOB. PT and OT ordered. GI prophylaxis: Protonix IV. Bowel regimen: Colace and MOM. Lactulose. LBM: 0 DVT prophylaxis: Mechanical VTE with SCDs. Chemical management with Lovenox SQ. DC Planning: Case management consulted for assistance with final discharge disposition. Emotional support provided to patient and family at bedside and plan of care discussed. Discussed with RN at bedside. Patient is is critically ill and injured and being managed in the ICU. The trauma team will round, assess and evaluate the patient on and plan care on a day-to-day basis (Carlee Crespo) Attestation Patient fracture of the right shoulder and dislocation of the humerus. I attempted to reduce this in the emergency room and so the the ER physician both unsuccessful Patient to undergo open reduction of the shoulder The exam, history, and the medical decision-making described in the above note were completed with the assistance of the mid-level provider. I reviewed and agree with the findings presented. I attest that I had a [id number] encounter with the patient on the same day, and personally performed and documented my assessment and findings in the medical record. Critical care time 35 minutes. (Virginia Noland MD) Problem Qualifiers (1) Scapular fracture: Qualified Code: S42.102A - Closed fracture of left scapula, unspecified part of scapula, initial encounter (2) Fracture dislocation of right shoulder joint: Qualified Code: S42.91XA - Fracture dislocation of right shoulder joint, closed , initial encounter Carlee Crespo May 28, 2016 16:43 Virginia Noland MD Jun 03, 2016 17:14
--- NOTE | 2016-05-28 17:23 | HHI.NSPN ---
History Chief Complaint: I am peachy Interval History He is now alert and oriented to place, date and events, EOMI, follows complex commands with all 4 extremities. He mostly complains of upper back pain Review of Systems Respiratory: Negative for: shortness of breath, cough, sputum Cardiovascular: Positive for: chest pain Gastrointestinal: Negative for: nausea, vomitting, diarrhea, constipation Exam Results Vital Signs Date Time Temp Pulse Resp B/P Pulse Ox O2 Delivery O2 Flow Rate FiO2 05/28/16 14:08 24 05/28/16 14:00 100 05/28/16 12:00 98.3 154/79 92 05/28/16 09:06 Venturi Mask 6.00 50 Intake and Output 05/27/16 05/27/16 05/28/16 08:00 16:00 00:00 Intake Total 782 ml 1532 ml 530 ml Output Total 825 ml 1000 ml 700 ml Balance -43 ml 532 ml -170 ml Physical Examination Alert, oriented x 3, speech fluent, pupils reactive, face symmetric Follow complex commands moves all extremities, Deltoid/bic/tri/hip flexors, quads not tested but grasps, finger use and dexterity/toes movements appears good bilaterally Back pain with no sensory level and no radiculopathy No Dowling sign, No Babinski RRR, Rhonchi, pos BS. Lab, Micro, Other Results Last Impressions Chest X-Ray 05/28/16 0600 Signed Impressions: Service Date/Time: Saturday, May 28, 2016 03:42 - CONCLUSION: 1. Multiple upper left rib fractures with small extrapleural hematoma. Minimal basilar airspace disease or atelectasis. No pneumothorax. Deep Domínguez MD Head CT 05/27/16 0600 Signed Impressions: Service Date/Time: May 05:11 - CONCLUSION: Small right parietal extra-axial hemorrhage is seen more posteriorly than on the comparison study but unchanged in thickness. Oni Fountain MD Shoulder X-Ray 05/27/16 0000 Signed Impressions: Service Date/Time: May 07:32 - CONCLUSION: Anatomic alignment. Juan C Izquierdo MD FACR Pelvis X-Ray 05/26/161553 Signed Impressions: Service Date/Time: Thursday, May 26, 2016 15:45 - CONCLUSION: Suspected widening of the pubic symphysis. The patient is scheduled for CT examination of the abdomen and pelvis. Fausto Jay MD Chest CT 05/26/161553 Signed Impressions: Service Date/Time: Thursday, May 26, 2016 16:31 - CONCLUSION: Significant bony trauma with fracture dislocation of the right shoulder joint, comminuted fracture of the left clavicle, fracture left scapula and multiple left upper rib fractures. No evidence of pneumothorax or significant airspace disease. No evidence of mediastinal soft tissue or vascular injury. Cholelithiasis. Sandip Gregg MD Cervical Spine CT 05/26/161553 Signed Impressions: Service Date/Time: Thursday, May 26, 2016 16:21 - CONCLUSION: No evidence of acute bony or soft tissue trauma. Mild to moderate degenerative disc disease. Sandip Gregg MD Abdomen/Pelvis CT 05/26/161553 Signed Impressions: Service Date/Time: Thursday, May 26, 2016 16:31 - CONCLUSION: No acute abnormality is seen. There are calcified gallstones, sigmoid colon diverticula , and degenerative change in the lumbar spine. Fausto Jay MD Laboratory Tests Test 05/28/16 03:38 White Blood Count 16.4 TH/MM3 Red Blood Count 3.57 MIL/MM3 Hemoglobin 11.5 GM/DL Hematocrit 33.7 % Mean Corpuscular Volume 94.3 FL Mean Corpuscular Hemoglobin 32.1 PG Mean Corpuscular Hemoglobin 34.0 % Concent Red Cell Distribution Width 13.2 % Platelet Count 178 TH/MM3 Mean Platelet Volume 8.0 FL Neutrophils (%) (Auto) 83.3 % Lymphocytes (%) (Auto) 6.5 % Monocytes (%) (Auto) 9.2 % Eosinophils (%) (Auto) 0.6 % Basophils (%) (Auto) 0.4 % Neutrophils # (Auto) 13.7 TH/MM3 Lymphocytes # (Auto) 1.1 TH/MM3 Monocytes # (Auto) 1.5 TH/MM3 Eosinophils # (Auto) 0.1 TH/MM3 Basophils # (Auto) 0.1 TH/MM3 CBC Comment DIFF FINAL Differential Comment Sodium Level 137 MEQ/L Potassium Level 3.8 MEQ/L Chloride Level 102 MEQ/L Carbon Dioxide Level 28.1 MEQ/L Anion Gap 7 MEQ/L Blood Urea Nitrogen 13 MG/DL Creatinine 0.81 MG/DL Estimat Glomerular Filtration 98 ML/MIN Rate Random Glucose 137 MG/DL Calcium Level 8.1 MG/DL Magnesium Level 2.2 MG/DL Total Bilirubin 0.8 MG/DL Aspartate Amino Transf 74 U/L (AST/SGOT) Alanine Aminotransferase 44 U/L (ALT/SGPT) Alkaline Phosphatase 104 U/L Total Protein 6.7 GM/DL Albumin 3.3 GM/DL Medical Decision Making Impression and Plan Closed head injury with concussion, no new bleed.DVT prophylaxis, PUD prophylaxis per protocol. Total Minutes: 10 Amandeep Saez May 28, 2016 17:23
[2016-05-28] MEDS: ENOXAPARIN SODIUM 40 MG/0.4 ML SYRINGE SQ SCH (18:52)
[2016-05-28] MEDS: PANTOPRAZOLE SODIUM 40 MG VIAL IV SCH (18:52)
[2016-05-28] MEDS: MAGNESIUM HYDROXIDE SUSP 30 ML CUP PO SCH (19:43)
[2016-05-28] MEDS: REMOVE OLD PATCH T-DERMAL SCH (20:00)
[2016-05-29] VITALS (12 sets, daily range): BP systolic 117–143; BP diastolic 56–73; PULSE 85–94; RESP 18–32; TEMP 97.9–99.6; O2SAT 91–95
[2016-05-29 04:02] LABS: HEMATOCRIT 30.6 % (39.0-51.0); MEAN CORPUSCULAR HEMOGLOBIN 32.9 PG (27.0-34.0); PLATELET COUNT 174 TH/MM3 (150-450); RED BLOOD COUNT 3.26 MIL/MM3 (4.50-5.90); REVIEW FLAG FINAL; WHITE BLOOD COUNT 12.7 TH/MM3 (4.0-11.0)
[2016-05-29 04:28] LABS: BICARBONATE 29.1 MEQ/L (21.0-32.0); MAGNESIUM 2.4 MG/DL (1.5-2.5); POTASSIUM 3.7 MEQ/L (3.5-5.1)
[2016-05-29] MEDS: METHOCARBAMOL 500 MG TAB PO SCH ×3 (05:28→22:25)
[2016-05-29] MEDS: SODIUM CHLOR 0.9% 1000 ML INJ 1,000 ML IV SCH (05:28)
[2016-05-29] MEDS: PCA - TOTAL MG DILAUDID DELIVERED PER SHIFT OTHER SCH ×2 (05:36→12:41)
[2016-05-29] MEDS: RESP: ALBUTEROL 2.5 MG/IPRATROPIUM 0.5 MG NEB (PRN) NEB (08:40)
[2016-05-29] MEDS: levETIRAcetam INJ 500 MG in SODIUM CHLORIDE 0.9% INJ 100 ML IV SCH (08:50)
[2016-05-29] MEDS: LACTULOSE SYRUP 20 GM/30 ML CUP PO SCH (08:50)
[2016-05-29] MEDS: DOCUSATE SODIUM 100 MG CAP PO SCH (08:50)
[2016-05-29] MEDS: LIDOCAINE HCL 5% PATCH TD SCH (08:51)
[2016-05-29] MEDS: SODIUM CHLORIDE 0.9% FLUSH 5 ML FLUSH IVF SCH ×2 (08:52→22:25)
[2016-05-29] MEDS ORDERED: BISACODYL EC 5 MG TABEC PO ONE (10:15)
[2016-05-29] MEDS ORDERED: BISACODYL 10 MG SUPP RECTAL ONE (10:15)
[2016-05-29] MEDS ORDERED: HYDROmorphone HCL PF 1 MG/ML VIAL IV PRN (10:30)
[2016-05-29] MEDS: DOCUSATE SODIUM 50 MG/SENNA 8.6 MG TAB PO SCH ×2 (11:04→22:25)
--- NOTE | 2016-05-29 11:24 | HHI.NSPN ---
History Chief Complaint: feeling better, the back is numb Interval History He is now alert and oriented to place, date and events, EOMI, follows complex commands with all 4 extremities. He mostly complains of upper back pain Review of Systems Respiratory: Negative for: shortness of breath, cough, sputum Gastrointestinal: Negative for: nausea, vomitting, diarrhea, constipation Exam Results Vital Signs Date Time Temp Pulse Resp B/P Pulse Ox O2 Delivery O2 Flow Rate FiO2 05/29/16 10:00 86 05/29/16 08:40 94 Nasal Cannula 4.00 05/29/16 08:00 97.9 26 143/67 05/29/16 07:00 50 Intake and Output 05/28/16 05/28/16 05/29/16 08:00 16:00 00:00 Intake Total 315 ml 535 ml 529 ml Output Total 550 ml 575 ml 500 ml Balance -235 ml -40 ml 29 ml Physical Examination Alert, oriented x 3, speech fluent, pupils reactive, face symmetric Follow complex commands moves all extremities, Deltoid/bic/tri/hip flexors, quads not tested but grasps, finger use and dexterity/toes movements appears good bilaterally Right arm immobilized in a sling Back pain with no sensory level and no radiculopathy No Dowling sign, No Babinski Lab, Micro, Other Results Last Impressions Chest X-Ray 05/28/16 0600 Signed Impressions: Service Date/Time: Saturday, May 28, 2016 03:42 - CONCLUSION: 1. Multiple upper left rib fractures with small extrapleural hematoma. Minimal basilar airspace disease or atelectasis. No pneumothorax. Deep Domínguez MD Head CT 05/27/16 0600 Signed Impressions: Service Date/Time: May 05:11 - CONCLUSION: Small right parietal extra-axial hemorrhage is seen more posteriorly than on the comparison study but unchanged in thickness. Oni Fountain MD Shoulder X-Ray 05/27/16 0000 Signed Impressions: Service Date/Time: May 07:32 - CONCLUSION: Anatomic alignment. Juan C Izquierdo MD FACR Pelvis X-Ray 05/26/16 2233 Signed Impressions: Service Date/Time: Thursday, May 26, 2016 15:45 - CONCLUSION: Suspected widening of the pubic symphysis. The patient is scheduled for CT examination of the abdomen and pelvis. Fausto Jay MD Chest CT 05/26/16 8784 Signed Impressions: Service Date/Time: Thursday, May 26, 2016 16:31 - CONCLUSION: Significant bony trauma with fracture dislocation of the right shoulder joint, comminuted fracture of the left clavicle, fracture left scapula and multiple left upper rib fractures. No evidence of pneumothorax or significant airspace disease. No evidence of mediastinal soft tissue or vascular injury. Cholelithiasis. Sandip Gregg MD Cervical Spine CT 05/26/16 9426 Signed Impressions: Service Date/Time: Thursday, May 26, 2016 16:21 - CONCLUSION: No evidence of acute bony or soft tissue trauma. Mild to moderate degenerative disc disease. Sandip Gregg MD Abdomen/Pelvis CT 05/26/16 3866 Signed Impressions: Service Date/Time: Thursday, May 26, 2016 16:31 - CONCLUSION: No acute abnormality is seen. There are calcified gallstones, sigmoid colon diverticula , and degenerative change in the lumbar spine. Fausto Jay MD Laboratory Tests Test 05/29/16 03:53 White Blood Count 12.7 TH/MM3 Red Blood Count 3.26 MIL/MM3 Hemoglobin 10.7 GM/DL Hematocrit 30.6 % Mean Corpuscular Volume 94.0 FL Mean Corpuscular Hemoglobin 32.9 PG Mean Corpuscular Hemoglobin 35.0 % Concent Red Cell Distribution Width 13.0 % Platelet Count 174 TH/MM3 Mean Platelet Volume 7.5 FL Sodium Level 136 MEQ/L Potassium Level 3.7 MEQ/L Chloride Level 100 MEQ/L Carbon Dioxide Level 29.1 MEQ/L Anion Gap 7 MEQ/L Blood Urea Nitrogen 13 MG/DL Creatinine 0.72 MG/DL Estimat Glomerular Filtration 112 ML/MIN Rate Random Glucose 110 MG/DL Calcium Level 8.2 MG/DL Magnesium Level 2.4 MG/DL Medical Decision Making Impression and Plan Closed head injury with concussion, no new bleed.DVT prophylaxis, PUD prophylaxis per protocol. [facility] with [facility] or with me for the small subdural bleed follow up and for the back pain. Total Minutes: 10 Amandeep Saez May 29, 2016 11:24
[2016-05-29] MEDS: oxyCODONE/ACETAMINOPHEN 5 MG/325 MG TAB PO PRN ×3 (12:40→22:25)
--- NOTE | 2016-05-29 12:41 | MB ---
cc: RADHA CARLSON Corrected Copy: 06/23/16 DATE OF CONSULTATION: 05/26/2016 REQUESTING PHYSICIAN: Dr. Noland REASON FOR CONSULTATION: Fracture dislocation of the right shoulder. HISTORY OF PRESENT ILLNESS: This is an unknown age, middle aged white male who apparently was climbing a tree earlier today after having alcoholic beverages, he fell sustaining an injury to his right shoulder and left shoulder, he was evaluated and treated in the emergency room and found to have evidence of a fractured dislocation of right shoulder apparently there was an attempt by the emergency room physician to put the shoulder in but it was not successful. I have been asked see him in consultation regarding the same. PHYSICAL EXAMINATION: IN GENERAL: Alert, cooperative male, seen in the Intensive Care Unit. He was examined with the nurse. His right arm is in an TOÑA wrap and sling. His right upper shoulder is evaluated. It is very difficult to get any activity of the deltoid, There might be an actual nerve injury. The left shoulder has tenderness along the region of the clavicle with swelling. Elbow and wrist examination of the left arm is normal. Elbow and wrist examination of the right arm appears to be normal with limited examination. He has no tenderness in the region of the pelvis. Both knees, both hips and both ankles. X-ray reviewed and reviewed the radiology interpretation of the right shoulder shows evidence of a fracture of the proximal humerus with a complete dislocation of the humeral head and there appears to be a greater tuberosity fracture. The radiologist speaks for a scapular fracture but I did not see that. The left shoulder shows evidence of a comminuted left clavicle fracture. X-ray of the pelvis is suspicious for evidence of widely of the pubic symphysis but the CT scan is unremarkable. The patient does not complain of any pain with palpation in that region. IMPRESSION: Multi-trauma patient. Fracture, dislocation of the right shoulder. Fracture of the left clavicle. Fracture left glenoid/scapular. Possible injury pubic symphysis PLAN: I spoke with the patient and consented him for closed reduction of the right shoulder under sedation. It was not successful, the patient will need to go to the operating room for an closed versus open reduction and possibly internal fixation of the proximal humerus fracture. Consent for the risks of this injury and surgery including infection, bleeding, loss of motion, continued pain and need for further surgery. Neurologic vascular injury, further fracturing of the bone. The patient understands and does wish to continue forward with this treatment as necessary. MD SHARAD Castellano/ /6:53 PM /12:25 PM [facility]
--- NOTE | 2016-05-29 12:41 | MP ---
cc: RADHA CARLSON Corrected Copy: 06/23/16 DATE OF SURGERY: 05/26/2016 PREOPERATIVE DIAGNOSIS: Fracture dislocation, right shoulder. POSTOPERATIVE DIAGNOSIS: Fracture dislocation, right shoulder. OPERATION: Attempted closed reduction, right shoulder under intravenous sedation, unsuccessful. SURGEON: Radha Carlson MD. ANESTHESIA: IV sedation. INDICATIONS FOR PROCEDURE: This patient is a trauma patient with a fractured dislocation right shoulder. He presents for the above procedure to preformed at bedside in the Intensive Care Unit. PROCEDURE: The patient was in the Intensive Care Unit. The mine manager was there and gave IV sedation including Fentanyl and Versed. Respiratory was there for back up. Very carefully with adequate sedation of right shoulder was manipulated with traction. We tried several times to reduce this not using great force. We were not successful in reducing the shoulder. Despite what was felt to be adequate sedation. We placed the patient back in a sling apparatus. The patient will be reassessed further and a decision made for timing of surgical treatment in the operating room. MD SHARAD Castellano/zoe /6:56 PM /12:24 PM [facility]
--- NOTE | 2016-05-29 16:06 | HHI.CCPN ---
Subjective Brief History HOONAH: The patient is a 60-year-old male who presents to the emergency department via EMS as a trauma alert. According to EMS the patient was trimming trees earlier tonight, was approximately 25 feet off the ground, when he fell. According to EMS the patient fell against a concrete flower bed and was noted to have abrasions across the left shoulder and upper back. The patient complains of back pain along the upper thoracic region as well as right shoulder pain with obvious deformity. The patient denies any loss of consciousness or neck pain. The patient denies any anterior chest pain, shortness breath, nausea, vomiting, or abdominal pain. He does admit to drinking alcohol earlier today. He denies any numbness or tingling in the upper or lower extremities, but does note significant right shoulder pain with limited ability to move the right shoulder. PMHx: Smoker. EtOH. INJURIES: SDH ( small right parietal extra-axial hemorrhage) LEFT clavicle fx LEFT Scapula fx RIGHT Shoulder dislocation LEFT upper rib fxs Gallstones Diverticula Procedures: 05/26: Reduction attempt at bedside under conscious sedation 05/27: Closed reduction of RIGHT shoulder. Closed reduction of RIGHT proximal humerus Consults: Orthopedics. Neurosurgery. 24 Hour Review/Hospital Course 05/27/2016 TD#1-multi trauma right shoulder injury left scapula fx SDH multiple rib fx right post op from shoulder surgery right resting comfortably-no complaints 05/28/2016: PTD: 2 Pt is doing well. Noted to be out of bed in a recliner chair. On a Ventimask, Sats equaling 91-93%. Patient does have a history of smoking. 05/29/16 Patient post fall from a tree with fracture of the clavicle scapula and that severe chest contusion with rib fractures Patient doing much better Bilateral breath sounds Patient is mobilizing much easier right now and pain is completely controlled Will discharge patient to floor today and then discharge home tomorrow Objective Vital Signs Date Time Temp Pulse Resp B/P Pulse Ox O2 Delivery O2 Flow Rate FiO2 05/29/16 14:00 88 05/29/16 12:41 20 05/29/16 12:00 98.4 125/73 94 05/29/16 08:40 Nasal Cannula 4.00 05/29/16 07:00 50 Intake and Output 05/28/16 05/28/16 05/29/16 08:00 16:00 00:00 Intake Total 315 ml 535 ml 529 ml Output Total 550 ml 575 ml 500 ml Balance -235 ml -40 ml 29 ml Result Diagram: 05/29/16 0353 05/29/16 0353 Assessment and Plan Assessment: (1) Hypokalemia ICD Code: E87.6 Status: Acute (2) Tobacco abuse ICD Code: Z72.0 Status: Acute (3) Thrombocytopenia ICD Code: D69.6 Status: Acute (4) Hypomagnesemia ICD Code: E83.42 Status: Acute (5) Scapular fracture ICD Code: S42.109A Status: Acute (6) Fracture dislocation of right shoulder joint ICD Code: S42.91XA Status: Acute (7) Subdural hemorrhage ICD Code: I62.00 Status: Acute Plan HOONAH: This is a 60-year-old male who sustained a fall from a palm tree of about 20 feet onto the concrete. He landed on his right shoulder. PMHx: Smoker. EtOH INJURIES: SDH ( small right parietal extra-axial hemorrhage) LEFT clavicle fx LEFT Scapula fx RIGHT Shoulder dislocation LEFT upper rib fxs Gallstones Diverticula Procedures: 05/26: Reduction attempt at bedside under conscious sedation 05/27: Closed reduction of RIGHT shoulder. Closed reduction of RIGHT proximal humerus Consults: Orthopedics. Neurosurgery Diet: Regular 1800 ADA diet. Tolerating po diet. Encourage good po intake with each meal. Pulmonary: Encourage good pulmonary toileting. IS and acapella at bedside and pt encouraged to use. Rationale for use explained to patient, and verbalized understanding. EZ pap. PAIN Management: [place]. Morphine IV. Robaxin po. Lidoderm patch. Activity: OOB. PT and OT ordered. GI prophylaxis: Protonix IV. Bowel regimen: Colace and MOM. Lactulose. LBM: 0 DVT prophylaxis: Mechanical VTE with SCDs. Chemical management with Lovenox SQ. DC Planning: Case management consulted for assistance with final discharge disposition. Emotional support provided to patient and family at bedside and plan of care discussed. Discussed with RN at bedside. Patient is is critically ill and injured and being managed in the ICU. The trauma team will round, assess and evaluate the patient on and plan care on a day-to-day basis Attestation The exam, history, and the medical decision-making described in the above note were completed with the assistance of the mid-level provider. I reviewed and agree with the findings presented. I attest that I had a [id number]-bsee encounter with the patient on the same day, and personally performed and documented my assessment and findings in the medical record. Critical care time 35 minutes. Problem Qualifiers (1) Scapular fracture: Qualified Code: S42.102A - Closed fracture of left scapula, unspecified part of scapula, initial encounter (2) Fracture dislocation of right shoulder joint: Qualified Code: S42.91XA - Fracture dislocation of right shoulder joint, closed , initial encounter Virginia Noland MD May 29, 2016 16:06
[2016-05-29] MEDS: PANTOPRAZOLE SODIUM 40 MG VIAL IV SCH (17:04)
[2016-05-29] MEDS: ENOXAPARIN SODIUM 40 MG/0.4 ML SYRINGE SQ SCH (17:05)
[2016-05-29] MEDS: REMOVE OLD PATCH T-DERMAL SCH (21:00)
[2016-05-29] MEDS: MAGNESIUM HYDROXIDE SUSP 30 ML CUP PO SCH (22:25)
[2016-05-29] MEDS: levETIRAcetam 500 MG TAB PO SCH (22:25)
[2016-05-30] VITALS: BP 106/59; PULSE 82; RESP 20; TEMP 97.6; O2SAT 97
[2016-05-30 04:00] VITALS: BP 111/64; PULSE 87; RESP 20; TEMP 98.7; O2SAT 95
[2016-05-30] MEDS: oxyCODONE/ACETAMINOPHEN 5 MG/325 MG TAB PO PRN ×3 (04:58→18:53)
[2016-05-30] MEDS: METHOCARBAMOL 500 MG TAB PO SCH ×3 (05:56→21:33)
[2016-05-30 06:16] LABS: AUTOMATED NEUTROPHIL # 7.9 TH/MM3 (1.8-7.7); BASOPHIL # 0.1 TH/MM3 (0-0.2); BASOPHIL % 0.7 % (0.0-2.0); EOSINOPHIL # 0.4 TH/MM3 (0-0.4); EOSINOPHIL % 3.3 % (0.0-4.0); HEMATOCRIT 29.7 % (39.0-51.0); HEMO FLAGS DIFF FINAL; LYMPH % 13.3 % (9.0-44.0); LYMPHOCYTE # 1.4 TH/MM3 (1.0-4.8); MEAN CELL VOLUME 94.2 FL (80.0-100.0); MEAN CORPUSCULAR HEMOGLOBIN 32.8 PG (27.0-34.0); MEAN CORPUSCULAR HGB CONC 34.8 % (32.0-36.0); MONO % 7.3 % (0.0-8.0); NEUT % 75.4 % (16.0-70.0); PLATELET COUNT 175 TH/MM3 (150-450); RED BLOOD COUNT 3.16 MIL/MM3 (4.50-5.90); RED CELL DISTRIBUTION WIDTH 13.3 % (11.6-17.2); WHITE BLOOD COUNT 10.5 TH/MM3 (4.0-11.0)
--- NOTE | 2016-05-30 06:19 | RADRPT ---
EXAM DATE/TIME: 05/30/2016 05:31 [facility] COMPARISON: CHEST SINGLE AP, May 28, 2016, 3:42. INDICATIONS : Shortness of breath. MEDICAL HISTORY : None. SURGICAL HISTORY : None. ENCOUNTER: Subsequent ACUITY: 4 - 6 days PAIN SCORE: Non-responsive. LOCATION: Bilateral chest FINDINGS: Again seen are multiple left rib fractures with probable extrapleural hematoma. Basilar airspace dise ase, left greater than right is stable. Heart size upper limits normal. No pneumothorax. CONCLUSION: 1. Stable exam compared with May 28 with multiple left rib fractures and left greater than right ai rspace disease. Deep Domínguez MD on May 30, 2016 at 6:17 Board Certified Radiologist. This report was verified electronically.
[2016-05-30] MEDS ORDERED: MAGNESIUM CITRATE SOLN 300 ML BTL PO ONE (06:45)
[2016-05-30 07:06] LABS: ALKALINE PHOSPHATASE 54 U/L (45-117); ALT (GPT) 36 U/L (12-78); ANION GAP 9 MEQ/L (5-15); AST (GOT) 35 U/L (15-37); BICARBONATE 26.9 MEQ/L (21.0-32.0); BLOOD UREA NITROGEN 13 MG/DL (7-18); CHLORIDE 103 MEQ/L (98-107); GLOMERULAR FILTRATION RATE 124 ML/MIN (>89); MAGNESIUM 2.2 MG/DL (1.5-2.5); POTASSIUM 3.4 MEQ/L (3.5-5.1); SODIUM (NA) 139 MEQ/L (136-145); TOTAL BILIRUBIN ADULT 0.7 MG/DL (0.2-1.0)
[2016-05-30 07:25] VITALS: BP 143/79; PULSE 85; RESP 18; TEMP 98.3; O2SAT 95
[2016-05-30] MEDS: SODIUM CHLORIDE 0.9% FLUSH 5 ML FLUSH IVF SCH ×2 (10:29→21:31)
[2016-05-30] MEDS: LIDOCAINE HCL 5% PATCH TD SCH (10:32)
[2016-05-30] MEDS: levETIRAcetam 500 MG TAB PO SCH ×2 (10:33→21:31)
[2016-05-30] MEDS: DOCUSATE SODIUM 50 MG/SENNA 8.6 MG TAB PO SCH ×2 (10:33→21:32)
[2016-05-30] MEDS: LACTULOSE SYRUP 20 GM/30 ML CUP PO SCH (10:33)
[2016-05-30 11:20] VITALS: BP 149/74; PULSE 93; RESP 18; TEMP 95.8; O2SAT 100
[2016-05-30 15:25] VITALS: BP 180/97; PULSE 97; RESP 19; TEMP 97.4; O2SAT 100
--- NOTE | 2016-05-30 15:35 | HHI.PR ---
Subjective Subjective Notes PTD: 4 Patient awake and sitting up in bed. Sats equal 97% on room air. Patient states "I'm feeling better. I'm not walking as much as I should. I'm weak." Objective Vitals/I&O Vital Signs Date Time Temp Pulse Resp B/P Pulse Ox O2 Delivery O2 Flow Rate FiO2 05/30/16 11:20 95.8 93 18 149/74 100 05/30/16 07:00 Nasal Cannula 3.00 05/29/16 07:00 50 Labs Laboratory Tests Test 05/30/16 05/30/16 05:00 05:50 Sodium Level 139 Potassium Level 3.4 Chloride Level 103 Carbon Dioxide Level 26.9 Anion Gap 9 Blood Urea Nitrogen 13 Creatinine 0.66 Estimat Glomerular Filtration 124 Rate Random Glucose 125 Calcium Level 8.2 Magnesium Level 2.2 Total Bilirubin 0.7 Aspartate Amino Transf 35 (AST/SGOT) Alanine Aminotransferase 36 (ALT/SGPT) Alkaline Phosphatase 54 Total Protein 6.3 Albumin 2.5 White Blood Count 10.5 Red Blood Count 3.16 Hemoglobin 10.4 Hematocrit 29.7 Mean Corpuscular Volume 94.2 Mean Corpuscular Hemoglobin 32.8 Mean Corpuscular Hemoglobin 34.8 Concent Red Cell Distribution Width 13.3 Platelet Count 175 Mean Platelet Volume 7.7 Neutrophils (%) (Auto) 75.4 Lymphocytes (%) (Auto) 13.3 Monocytes (%) (Auto) 7.3 Eosinophils (%) (Auto) 3.3 Basophils (%) (Auto) 0.7 Neutrophils # (Auto) 7.9 Lymphocytes # (Auto) 1.4 Monocytes # (Auto) 0.8 Eosinophils # (Auto) 0.4 Basophils # (Auto) 0.1 CBC Comment DIFF FINAL Differential Comment Radiology Last Impressions Chest X-Ray 05/30/16 0600 Signed Impressions: Service Date/Time: Monday, May 30, 2016 05:31 - CONCLUSION: 1. Stable exam compared with May 28 with multiple left rib fractures and left greater than right airspace disease. Deep Domínguez MD Head CT 05/27/16 0600 Signed Impressions: Service Date/Time: May 05:11 - CONCLUSION: Small right parietal extra-axial hemorrhage is seen more posteriorly than on the comparison study but unchanged in thickness. Oni Fountain MD Shoulder X-Ray 05/27/16 0000 Signed Impressions: Service Date/Time: May 07:32 - CONCLUSION: Anatomic alignment. Juan C Izquierdo MD FACR Pelvis X-Ray 05/26/16 1554 Signed Impressions: Service Date/Time: Thursday, May 26, 2016 15:45 - CONCLUSION: Suspected widening of the pubic symphysis. The patient is scheduled for CT examination of the abdomen and pelvis. Fausto Jay MD Chest CT 05/26/16 1554 Signed Impressions: Service Date/Time: Thursday, May 26, 2016 16:31 - CONCLUSION: Significant bony trauma with fracture dislocation of the right shoulder joint, comminuted fracture of the left clavicle, fracture left scapula and multiple left upper rib fractures. No evidence of pneumothorax or significant airspace disease. No evidence of mediastinal soft tissue or vascular injury. Cholelithiasis. Sandip Gregg MD Cervical Spine CT 05/26/16 1554 Signed Impressions: Service Date/Time: Thursday, May 26, 2016 16:21 - CONCLUSION: No evidence of acute bony or soft tissue trauma. Mild to moderate degenerative disc disease. Sandip Gregg MD Abdomen/Pelvis CT 05/26/16 1554 Signed Impressions: Service Date/Time: Thursday, May 26, 2016 16:31 - CONCLUSION: No acute abnormality is seen. There are calcified gallstones, sigmoid colon diverticula , and degenerative change in the lumbar spine. Fausto Jay MD Narrative Exam GENERAL: This is a 60-year-old male sitting up in bed in no acute distress. SKIN: Warm and dry. HEAD: Atraumatic. Normocephalic. EYES: PERRLA ENT: No nasal bleeding or discharge. Mucous membranes pink and moist. NECK: Trachea midline. No JVD. CARDIOVASCULAR: Regular rate and rhythm. RESPIRATORY: No accessory muscle use. Lungs are clear to auscultation. Breath sounds equal bilaterally. No distress or dyspnea. GASTROINTESTINAL: BS + x 4 quads. Abdomen soft, non-tender, nondistended. MUSCULOSKELETAL: Extremities without cyanosis, or edema. + peripheral pulses x 4 extremities. Right arm in a sling . Warm with good capillary refill and sensation. MAEW. NEUROLOGICAL: Awake and alert. Normal speech and pattern. A/P Problem List: (1) Tobacco abuse (2) Scapular fracture (3) Fracture dislocation of right shoulder joint (4) Back pain (5) Subdural hemorrhage Assessment and Plan [place]: This is a 60-year-old male who sustained a fall from a palm tree approximately 20 feet and landed on the concrete. He landed on his right shoulder. EtOH equals 127. INJURIES: SDH Left clavicle fracture Left scapular fracture Right shoulder dislocation Left upper rib fractures Consults: Orthopedics, neurosurgery. Procedures: 05/26: Reduction attempt at bedside under conscious sedation 05/27: Closed reduction of right shoulder. Closed reduction of right proximal humerus Diet: Regular ADA diet. Tolerating po diet. Encourage good po intake with each meal. Pulmonary: Encourage good pulmonary toileting. IS and acapella at bedside and pt encouraged to use. Rationale for use explained to patient, and verbalized understanding. EZpap ordered. Observed patient using incentive spirometer. Only able to pull 1000ml. Chest x-ray stable when compared to previous. Repeat chest x-ray in the morning. PAIN Management: Dilaudid FIRE CONTROL TECHNICIAN. Percocet po. Robaxin. Lidoderm patch. Added Toradol. Activity: OOB. PT and OT ordered. Encourage ambulation. GI prophylaxis: Protonix IV. Bowel regimen: Colace and MOM. Lactulose daily. LBM: 0. Intensified with magnesium citrate 1 today. DC Son catheter. DVT prophylaxis: Mechanical VTE with SCDs. Chemical management with Lovenox 40 daily - cleared and ordered by neurosurgery. DC Planning: Case management consulted for assistance with final discharge disposition. Both PT and OT recommend inpatient rehabilitation. [facility] however rehabilitation is considered "out of network." Case management expertise needed to assist in obtaining final placement. Emotional support provided to patient and family at bedside and plan of care discussed. Discussed with RN at bedside. Patient is hemodynamically stable and being managed on the med/surg floor. Remarks seen and examined with HUMANE AGENT-agree with assessment and plan Problem Qualifiers (1) Scapular fracture: Qualified Code: S42.102A - Closed fracture of left scapula, unspecified part of scapula, initial encounter (2) Fracture dislocation of right shoulder joint: Qualified Code: S42.91XA - Fracture dislocation of right shoulder joint, closed , initial encounter (3) Back pain: Carlee Crespo May 30, 2016 15:35 Vandana Sanders MD Jun 08, 2016 17:52
[2016-05-30] MEDS: PANTOPRAZOLE SODIUM 40 MG VIAL IV SCH (17:41)
[2016-05-30] MEDS: ENOXAPARIN SODIUM 40 MG/0.4 ML SYRINGE SQ SCH (17:41)
[2016-05-30] MEDS: KETOROLAC TROMETHAMINE 30 MG/ML (IVP) VIAL IV PUSH SCH ×2 (17:43→21:31)
[2016-05-30] MEDS ORDERED: POTASSIUM CHLORIDE 20 MEQ CONTROLLED RELEASE TAB PO ONE (19:30)
[2016-05-30 20:42] VITALS: BP 128/72; PULSE 87; RESP 20; TEMP 96.9; O2SAT 94
[2016-05-30] MEDS: REMOVE OLD PATCH T-DERMAL SCH (21:00)
[2016-05-30] MEDS: MAGNESIUM HYDROXIDE SUSP 30 ML CUP PO SCH (21:00)
[2016-05-31 01:00] VITALS: BP 118/62; PULSE 80; RESP 17; TEMP 96.6; O2SAT 94
[2016-05-31] MEDS: METHOCARBAMOL 500 MG TAB PO SCH ×3 (04:21→21:44)
[2016-05-31] MEDS: KETOROLAC TROMETHAMINE 30 MG/ML (IVP) VIAL IV PUSH SCH ×4 (04:22→21:43)
[2016-05-31 04:57] VITALS: BP 125/69; PULSE 79; RESP 19; TEMP 96.4; O2SAT 95
--- NOTE | 2016-05-31 06:52 | RADRPT ---
EXAM DATE/TIME: 05/31/2016 05:41 [facility] COMPARISON: CHEST SINGLE AP, May 30, 2016, 5:31. INDICATIONS : Short of breath, cough MEDICAL HISTORY : fractured left clavicle, scapula, ribs, right shoulder dislocated SURGICAL HISTORY : None. ENCOUNTER: Subsequent ACUITY: 1 week PAIN SCORE: 10/10 LOCATION: Bilateral chest FINDINGS: There is a displaced left clavicular fracture and multiple left-sided rib fractures noted with left a pical pleural thickening and patchy left lung airspace disease. Subsegmental right basilar atelectasi s. Cardiomegaly and aortic calcification. CONCLUSION: Multiple fractures are noted as above with left apical pleural thickening felt to represent a pleural effusion, and patchy left lung disease. Florian Rincon MD on May 31, 2016 at 6:50 Board Certified Radiologist. This report was verified electronically.
--- NOTE | 2016-05-31 07:14 | PD.ORT.PN ---
Subjective Subjective Remarks States the left shoulder hurts more than right Objective Vitals Vital Signs Date Time Temp Pulse Resp B/P Pulse Ox O2 Delivery O2 Flow Rate FiO2 05/31/16 05:24 16 05/31/16 04:57 96.4 79 19 125/69 95 05/31/16 01:00 96.6 80 17 118/62 94 05/30/16 21:31 Nasal Cannula 3.00 50 05/30/16 20:42 96.9 87 20 128/72 94 05/30/16 15:25 97.4 97 19 180/97 100 05/30/16 11:20 95.8 93 18 149/74 100 05/30/16 08:00 05/30/16 07:25 98.3 85 18 143/79 95 I/O 05/30/16 05/30/16 05/30/16 05/31/16 05/31/16 05/31/16 07:00 15:00 23:00 07:00 15:00 23:00 Intake Total 240 ml 240 ml Output Total 1000 ml 350 ml 350 ml Balance -760 ml -350 ml -110 ml Intake Oral 240 ml 240 ml Output Urine Total 1000 ml 350 ml 350 ml # Voids 0 1 # Bowel Movements 0 1 0 Result Diagram: 05/30/16 0550 05/30/16 0500 Imaging Last 24 hours Impressions Chest X-Ray 05/28/16 0600 Signed Impressions: Service Date/Time: Saturday, May 28, 2016 03:42 - CONCLUSION: 1. Multiple upper left rib fractures with small extrapleural hematoma. Minimal basilar airspace disease or atelectasis. No pneumothorax. Deep Domínguez MD Objective Remarks RUE:+ ultra sling. nvi distally sling reapplied Left upper extremity: Significant swelling over clavicle and scapula with pain to palpation. Distally neurovascularly intact is able full extension and flexion of all fingers Assessment & Plan Assessment and Plan 1) Right Proximal Humerus fx dislocation s/p closed reduction - POD 3 -NWB -maintain ulatra sling at all times -no ROM -re-xray today 2 left clavicle and possible scapular fracture X-ray today We'll evaluate x-rays to decide if surgical intervention is necessary MARISOL IBRAHIM PA-C May 31, 2016 07:14
[2016-05-31 07:25] VITALS: BP 126/74; PULSE 80; RESP 19; TEMP 96.7; O2SAT 97
[2016-05-31] MEDS: LACTULOSE SYRUP 20 GM/30 ML CUP PO SCH (08:34)
[2016-05-31] MEDS: DOCUSATE SODIUM 50 MG/SENNA 8.6 MG TAB PO SCH ×2 (08:35→21:00)
[2016-05-31] MEDS: levETIRAcetam 500 MG TAB PO SCH ×2 (08:35→21:44)
[2016-05-31] MEDS: LIDOCAINE HCL 5% PATCH TD SCH (08:37)
[2016-05-31] MEDS: SODIUM CHLORIDE 0.9% FLUSH 5 ML FLUSH IVF SCH ×2 (08:37→21:44)
[2016-05-31 11:11] VITALS: BP 128/64; PULSE 83; RESP 19; TEMP 95.5; O2SAT 96
--- NOTE | 2016-05-31 15:21 | HHI.PR ---
Subjective Subjective Notes PTD: 5 Patient sitting up in bed, stating that he just received more x-rays. The patient states that he's been getting out of bed in a chair several times a day, and he has been working with PT and walking in the room unassisted. He states he has pain along his left side and back area. " The pain is just... It's hard for me to realize how much pain can come from this fall. I'm just about crippled." "When I walk, I walk like a crab." Patient would like to be admitted to the [facility], where his is a resident in [place]. Objective Vitals/I&O Vital Signs Date Time Temp Pulse Resp B/P Pulse Ox O2 Delivery O2 Flow Rate FiO2 05/31/16 11:11 95.5 83 19 128/64 96 05/30/16 21:31 Nasal Cannula 3.00 50 Labs Laboratory Tests Test 05/27/16 05/30/16 05/30/16 03:41 05:00 05:50 Direct Bilirubin 0.2 MG/DL Indirect Bilirubin 0.5 MG/DL Sodium Level 139 MEQ/L Potassium Level 3.4 MEQ/L Chloride Level 103 MEQ/L Carbon Dioxide Level 26.9 MEQ/L Anion Gap 9 MEQ/L Blood Urea Nitrogen 13 MG/DL Creatinine 0.66 MG/DL Estimat Glomerular Filtration 124 ML/MIN Rate Random Glucose 125 MG/DL Calcium Level 8.2 MG/DL Magnesium Level 2.2 MG/DL Total Bilirubin 0.7 MG/DL Aspartate Amino Transf 35 U/L (AST/SGOT) Alanine Aminotransferase 36 U/L (ALT/SGPT) Alkaline Phosphatase 54 U/L Total Protein 6.3 GM/DL Albumin 2.5 GM/DL White Blood Count 10.5 TH/MM3 Red Blood Count 3.16 MIL/MM3 Hemoglobin 10.4 GM/DL Hematocrit 29.7 % Mean Corpuscular Volume 94.2 FL Mean Corpuscular Hemoglobin 32.8 PG Mean Corpuscular Hemoglobin 34.8 % Concent Red Cell Distribution Width 13.3 % Platelet Count 175 TH/MM3 Mean Platelet Volume 7.7 FL Neutrophils (%) (Auto) 75.4 % Lymphocytes (%) (Auto) 13.3 % Monocytes (%) (Auto) 7.3 % Eosinophils (%) (Auto) 3.3 % Basophils (%) (Auto) 0.7 % Neutrophils # (Auto) 7.9 TH/MM3 Lymphocytes # (Auto) 1.4 TH/MM3 Monocytes # (Auto) 0.8 TH/MM3 Eosinophils # (Auto) 0.4 TH/MM3 Basophils # (Auto) 0.1 TH/MM3 CBC Comment DIFF FINAL Differential Comment Radiology Last Impressions Chest X-Ray 05/30/16 0600 Signed Impressions: Service Date/Time: Monday, May 30, 2016 05:31 - CONCLUSION: 1. Stable exam compared with May 28 with multiple left rib fractures and left greater than right airspace disease. Deep Domínguez MD Head CT 05/27/16 0600 Signed Impressions: Service Date/Time: May 05:11 - CONCLUSION: Small right parietal extra-axial hemorrhage is seen more posteriorly than on the comparison study but unchanged in thickness. Oni Fountain MD Shoulder X-Ray 05/27/16 0000 Signed Impressions: Service Date/Time: May 07:32 - CONCLUSION: Anatomic alignment. Juan C Izquierdo MD FACR Pelvis X-Ray 05/26/16 1554 Signed Impressions: Service Date/Time: Thursday, May 26, 2016 15:45 - CONCLUSION: Suspected widening of the pubic symphysis. The patient is scheduled for CT examination of the abdomen and pelvis. Fausto Jay MD Chest CT 05/26/16 1554 Signed Impressions: Service Date/Time: Thursday, May 26, 2016 16:31 - CONCLUSION: Significant bony trauma with fracture dislocation of the right shoulder joint, comminuted fracture of the left clavicle, fracture left scapula and multiple left upper rib fractures. No evidence of pneumothorax or significant airspace disease. No evidence of mediastinal soft tissue or vascular injury. Cholelithiasis. Sandip Gregg MD Cervical Spine CT 05/26/16 1554 Signed Impressions: Service Date/Time: Thursday, May 26, 2016 16:21 - CONCLUSION: No evidence of acute bony or soft tissue trauma. Mild to moderate degenerative disc disease. Sandip Gregg MD Abdomen/Pelvis CT 05/26/16 1554 Signed Impressions: Service Date/Time: Thursday, May 26, 2016 16:31 - CONCLUSION: No acute abnormality is seen. There are calcified gallstones, sigmoid colon diverticula , and degenerative change in the lumbar spine. Fausto Jay MD Narrative Exam GENERAL: This is a 60-year-old male sitting up in bed in no acute distress. SKIN: Warm and dry. HEAD: Atraumatic. Normocephalic. EYES: PERRLA ENT: No nasal bleeding or discharge. Mucous membranes pink and moist. NECK: Trachea midline. No JVD. CARDIOVASCULAR: Regular rate and rhythm. RESPIRATORY: No accessory muscle use. Lungs are clear to auscultation. Breath sounds equal bilaterally. No distress or dyspnea. GASTROINTESTINAL: BS + x 4 quads. Abdomen soft, non-tender, nondistended. MUSCULOSKELETAL: Extremities without cyanosis, or edema. + peripheral pulses x 4 extremities. RIGHT arm in a sling . Warm with good capillary refill and sensation. MAEW. NEUROLOGICAL: Awake and alert. Normal speech and pattern. A/P Problem List: (1) Tobacco abuse (2) Scapular fracture (3) Fracture dislocation of right shoulder joint (4) Back pain (5) Subdural hemorrhage Assessment and Plan [place]: This is a 60-year-old male who sustained a fall from a palm tree approximately 20 feet and landed on the concrete. He landed on his right shoulder. EtOH equals 127. INJURIES: SDH Left clavicle fracture Left scapular fracture Right shoulder dislocation Left upper rib fractures Consults: Orthopedics, neurosurgery. Procedures: 05/26: Reduction attempt at bedside under conscious sedation 05/27: Closed reduction of right shoulder. Closed reduction of right proximal humerus Diet: Regular ADA diet. Tolerating po diet. Encourage good po intake with each meal. All home medications restarted. Pulmonary: Encourage good pulmonary toileting. IS and acapella at bedside and pt encouraged to use. Rationale for use explained to patient, and verbalized understanding. EZpap ordered. Observed patient using incentive spirometer. Only able to pull 1000ml. Chest x-ray: Possible pleural effusion and patchy left lung disease. PAIN Management: Dilaudid LAUNDRY SUPERVISOR. Percocet po. Robaxin. Lidoderm patch. Toradol. Activity: OOB. PT and OT ordered. Patient states that he has been working with PT and walking in the room however staff describes a different story. He state that the patient refuses to get out of bed and refuses PT on a daily basis. GI prophylaxis: Protonix IV. Bowel regimen: Colace and MOM. Lactulose daily. LBM: 05/31 DVT prophylaxis: Mechanical VTE with SCDs. Chemical management with Lovenox 40 daily - cleared and ordered by neurosurgery. DC Planning: Case management consulted for assistance with final discharge disposition. Both PT and OT recommend inpatient rehabilitation. [facility] however rehabilitation is considered "out of network." Case management expertise needed to assist in obtaining final placement that is approved by the [place]. Emotional support provided to patient and family at bedside and plan of care discussed. Discussed with RN at bedside. Patient is hemodynamically stable and being managed on the med/surg floor. Problem Qualifiers (1) Scapular fracture: Qualified Code: S42.102A - Closed fracture of left scapula, unspecified part of scapula, initial encounter (2) Fracture dislocation of right shoulder joint: Qualified Code: S42.91XA - Fracture dislocation of right shoulder joint, closed , initial encounter Carlee Crespo May 31, 2016 15:21
[2016-05-31 15:30] VITALS: BP 131/68; PULSE 85; RESP 19; TEMP 98.7; O2SAT 97
--- NOTE | 2016-05-31 16:12 | RADRPT ---
EXAM DATE/TIME: 05/31/2016 12:32 [facility] COMPARISON: SHOULDER RIGHT [facility] ([facility]), May 31, 2016, 12:29. INDICATIONS : Left shoulder pain; evaluate left shoulder fracture. MEDICAL HISTORY : None. SURGICAL HISTORY : None. ENCOUNTER: Subsequent ACUITY: 4 - 6 days PAIN SCORE: 8/10 LOCATION: Left shoulder. FINDINGS: The examination demonstrates a comminuted fracture of the distal left clavicle. There is 100% displac ement of multiple bone fragments evident. The examination also demonstrates fracture of the left upper second through sixth ribs. These are onl y partially visualized. CONCLUSION: 1. One are present displaced fracture of the distal left clavicle. 2. Multiple left upper rib fractures. 3. There is an old, healed fracture within the more proximal clavicle. Johnny Izquierdo MD on May 31, 2016 at 16:09 Board Certified Radiologist. This report was verified electronically.
[2016-05-31] MEDS: ENOXAPARIN SODIUM 40 MG/0.4 ML SYRINGE SQ SCH (17:08)
[2016-05-31] MEDS: ESCITALOPRAM OXALATE 20 MG TAB PO SCH (17:09)
[2016-05-31] MEDS: PANTOPRAZOLE SODIUM 40 MG VIAL IV SCH (17:14)
[2016-05-31 20:00] VITALS: BP 133/72; PULSE 86; RESP 20; TEMP 98.3; O2SAT 96
[2016-05-31] MEDS: MAGNESIUM HYDROXIDE SUSP 30 ML CUP PO SCH (21:00)
[2016-05-31] MEDS: LITHIUM CARBONATE 300 MG SLOW RELEASE TAB PO SCH (21:00)
[2016-05-31] MEDS: REMOVE OLD PATCH T-DERMAL SCH (21:00)
[2016-05-31] MEDS: GABAPENTIN 100 MG CAP PO SCH (21:15)
[2016-05-31] MEDS: traZODone HCL 100 MG TAB PO SCH (21:44)
[2016-05-31] MEDS: buPROPion HCL 150 MG SUSTAINED RELEASE TAB PO SCH (21:44)
[2016-06-01] VITALS: BP 128/71; PULSE 76; RESP 18; TEMP 97.4; O2SAT 94
[2016-06-01] MEDS: METHOCARBAMOL 500 MG TAB PO SCH ×3 (05:09→21:22)
[2016-06-01] MEDS: KETOROLAC TROMETHAMINE 30 MG/ML (IVP) VIAL IV PUSH SCH ×2 (05:10→10:00)
[2016-06-01 06:17] VITALS: BP 113/67; PULSE 81; RESP 18; TEMP 97.9; O2SAT 93
--- NOTE | 2016-06-01 07:11 | PD.ORT.PN ---
Subjective Subjective Remarks States the left shoulder hurts more than right Objective Vitals Vital Signs Date Time Temp Pulse Resp B/P Pulse Ox O2 Delivery O2 Flow Rate FiO2 06/01/16 06:17 97.9 81 18 113/67 93 06/01/16 00:00 97.4 76 18 128/71 94 05/31/16 20:00 98.3 86 20 133/72 96 05/31/16 15:30 98.7 85 19 131/68 97 05/31/16 11:11 95.5 83 19 128/64 96 05/31/16 07:25 96.7 80 19 126/74 97 I/O 05/31/16 05/31/16 05/31/16 06/01/16 06/01/16 06/01/16 07:00 15:00 23:00 07:00 15:00 23:00 Intake Total 480 ml Output Total 0 ml 0 ml Balance 480 ml 0 ml Intake Oral 480 ml Output Urine Total 0 ml 0 ml # Voids 1 1 # Bowel Movements 0 1 0 Result Diagram: 05/30/16 0550 05/30/16 0500 Imaging Last 24 hours Impressions Chest X-Ray 05/28/16 0600 Signed Impressions: Service Date/Time: Saturday, May 28, 2016 03:42 - CONCLUSION: 1. Multiple upper left rib fractures with small extrapleural hematoma. Minimal basilar airspace disease or atelectasis. No pneumothorax. Deep Domínguez MD Objective Remarks RUE:+ ultra sling. nvi distally sling reapplied Left upper extremity: Significant swelling over clavicle with pain to palpation. Distally neurovascularly intact is able full extension and flexion of all fingers Assessment & Plan Assessment and Plan 1) Right Proximal Humerus fx dislocation s/p closed reduction - POD 4 -NWB -maintain ulatra sling at all times -no ROM 2 left clavicle fracture minimal weight bearing OK to discharge to home from ortho standpoint follow up with [facility] in 2 weeks Ulises Turner Jr. Jun 01, 2016 07:11
[2016-06-01] MEDS ORDERED: GABA100C4 PO (07:42)
[2016-06-01] MEDS ORDERED: LACT10SO PO (07:42)
[2016-06-01] MEDS ORDERED: ENOX40P SQ (07:42)
[2016-06-01] MEDS ORDERED: SENN1TAB PO (07:48)
[2016-06-01] MEDS ORDERED: PANT40P PO (07:48)
[2016-06-01] MEDS ORDERED: METH500T3 PO (07:48)
[2016-06-01 08:00] VITALS: BP 119/62; PULSE 82; RESP 19; TEMP 98.3; O2SAT 95
[2016-06-01] MEDS: LITHIUM CARBONATE 300 MG SLOW RELEASE TAB PO SCH ×2 (09:00→21:22)
[2016-06-01] MEDS: DOCUSATE SODIUM 50 MG/SENNA 8.6 MG TAB PO SCH ×2 (09:00→21:25)
[2016-06-01] MEDS: ESCITALOPRAM OXALATE 20 MG TAB PO SCH (10:01)
[2016-06-01] MEDS: oxyCODONE/ACETAMINOPHEN 5 MG/325 MG TAB PO PRN ×3 (10:01→21:22)
[2016-06-01] MEDS: GABAPENTIN 100 MG CAP PO SCH ×3 (10:02→18:54)
[2016-06-01] MEDS: LACTULOSE SYRUP 20 GM/30 ML CUP PO SCH (10:02)
[2016-06-01] MEDS: LIDOCAINE HCL 5% PATCH TD SCH (10:02)
[2016-06-01] MEDS: levETIRAcetam 500 MG TAB PO SCH ×2 (10:03→21:22)
[2016-06-01] MEDS: SODIUM CHLORIDE 0.9% FLUSH 5 ML FLUSH IVF SCH ×2 (10:06→21:25)
[2016-06-01] MEDS: buPROPion HCL 150 MG SUSTAINED RELEASE TAB PO SCH ×2 (10:11→21:22)
[2016-06-01 12:00] VITALS: BP 126/67; PULSE 80; RESP 19; TEMP 98.3; O2SAT 95
--- NOTE | 2016-06-01 13:28 | PD.HHIRCNE ---
Patient History Record/History Review Reason for Referral: The patient is a 60 year old unknown handed male status post traumatic injury sustained on 05/26/2016. This patient was trimming a palm tree and fell, sustaining right scapular fracture, right humerus subluxation, rib fractures, left clavical fracture and bilateral pulmonary contusions. He was admitted with a GCS of 14, noted to be confused. Head CT was notable for a small right parietal extra-axial hemorrhage. He is now referred for baseline neurobehavioral status examination per trauma protocol to assess cognitive, behavioral and emotional aspects of the injury and to provide treatment recommendations. This patient has a longstanding history of bipolar disorder, and his recent clinical presentation prompted a need for referral. Neuropsych Precautions: To be determined. Past Surgical/Medical History Past Surgery: Yes (PATIENT STATES HERNIA REPAIR ) Major surgery in last 100 days: Unknown Hx Anesthesia Reactions: No Hx Orthopedic Surgery: No Hx Cardiac Surgery: No Hx of Neuro Prob: No Hx of Musculoskeletal Pro: No Hx of Cardiovascular Prob: No Hx of Respiratory Problem: No Hx of GI Problems: No Hx of Problems: No Hx of Immuno Disor: No Hx of Endocrine Problems: No Hx of Eye Probl: No Hx of Hearing or Ear Problems: No Hx Dental Problems: Yes (MISSING TEETH) Hx Blood Dyscrasias: No Hx of MDRO: No Hx of MRSA: No Hx of VRE: No Hx of CDIFF: No Hx of Tuberculosis: No Hx of Body/Medical Devices: No Blood Transfusion History Will receive Blood /Blood prod: Yes Hx Blood Transfusions: No Medication Active Medications Bupropion HCl (Wellbutrin Sr) 150 mg Q12HR PO Last administered on 06/01/16 10: 11; Admin Dose 150 MG; Start 05/31/16 at 21:00 Escitalopram Oxalate (Lexapro) 20 mg DAILY PO Last administered on 06/01/16 10: 01; Admin Dose 20 MG; Start 05/31/16 at 16:15 Gabapentin (Neurontin) 200 mg TID PO Last administered on 06/01/16 10:02; Admin Dose 200 MG; Start 05/31/16 at 21:15 Pingree Carbonate (Lithobid Sr) 300 mg BID PO; Start 05/31/16 at 21:00 Trazodone HCl (Desyrel) 100 mg HS PO Last administered on 05/31/16 21:44; Admin Dose 100 MG; Start 05/31/16 at 21:00 Mental Status Assessment Orientation: oriented to Self, oriented to Place, oriented to Time, oriented to Situation Mental Status: WFL: Thought processing, Language/Interactions, Attention, Learning/Memory, Problem-Solving, Visuospatial/Construction, Self-regulation, Other Observation The patient is alert and oriented to person, place, time and circumstances surrounding the reason for hospitalization. The [place] Orientation and Amnesia Test (GOAT) score was 95/100, which falls within the normal range. In terms of attention skills, the patient was able to remain on task and remember basic and complex instructions. In terms of memory functioning, the patient was able to provide an accurate description of his recent accident and challenges he faces in the future. The patient was to initiate spontaneous conversation. Speech was characterized by adequate prosody, grammar, articulation, volume and rate. Basic naming skills were intact. Language repetition skills were intact. The patients comprehensions for basic one- and two-stage commands were intact. Basic verbal abstraction and problem-solving skills were intact. The patient appears to posses adequate insight and awareness into their situation and within the limits of this brief evaluation, adequate basic judgment. Impression Essentially baseline level of neurocognitive functioning. Adjustment/Coping Assessment Adjustment/Coping: None: Depression, Anxiety, Apathy, Awareness, Insight, Moderate: Pain Affect: Full Range Observation The patients thought content was free from suicidal, homicidal or paranoid ideation, and the patients thought processes were logical and goal-directed albeit somewhat pressured. The patients mood was euthymic bordering on euphoric, although this is presumed premorbid, and his affect was relatively stable and appropriate. LTG Status: Deferred STG Status: Deferred Team Members: Neuropsychologist Behavior Assessment Agitation: Mild Treatment Engagement: Average Observation Behaviorally, the patient demonstrated no signs of significant agitation, impulsivity or disinhibition. There was no remarkable evidence of a formal thought disorder or psychosis. LTG - Status: Deferred STG Status: Deferred Team Members: Neuropsychologist Diagnosis/Discharge Plan Impression This patient is a 60 year old man who fell out of a palm tree, and sustained concussion. The majority of his neurocognitive symptoms appear resolved. He does have a longstanding history of bipolar disorder, that is presently being appropriately treated by his home medications. He reported no psychological issues at this point in his recovery, but he will continue to be followed. Diagnosis: (1) Mild neurocognitive disorder Status: Resolved (2) Bipolar disorder, unspecified Status: Chronic [facility] Level: VIII:Purposeful-appropriate Maximizing acute care outcome It is recommended that the patient be monitored for emergent behavioral impulsivity as the medical condition evolves, however please note that much of his issues are considered premorbid. Discharge Planning Anticipated Problems Anticipated problems include his chronic history of bipolar disorder, although he is receiving his home psychiatric meds. Treatment Plan This clinician will continue to follow with you throughout the course of this patients rehabilitation treatment, and I will be available to meet with the patients family/support system to facilitate their understanding and the ongoing care of their family member. The goals of neuropsychological intervention shall be both educational and supportive to the family/support system as is deemed clinically appropriate. Discharge Needs None. Thank you Thank you for the opportunity to assist in this patients care. Raymond Cisneros, Ph.D., ABPP Board Certified in Clinical Neuropsychology [place] [employer] Professional Psychology [place] Licensed Psychologist #[id number] Raymond Cisneros PhD Jun 01, 2016 1:28 pm
--- NOTE | 2016-06-01 14:35 | HHI.PR ---
Subjective Subjective Notes PTD: 6 Patient out of bed and sitting in a chair. He states, "I'm styling." Patient states that he is eating well, and he walked with PT to the bathroom. "No crab walking today!" Objective Vitals/I&O Vital Signs Date Time Temp Pulse Resp B/P Pulse Ox O2 Delivery O2 Flow Rate FiO2 06/01/16 12:00 98.3 80 19 126/67 95 05/30/16 21:31 Nasal Cannula 3.00 50 Labs Laboratory Tests Test 05/30/16 05/30/16 05:00 05:50 Sodium Level 139 MEQ/L Potassium Level 3.4 MEQ/L Chloride Level 103 MEQ/L Carbon Dioxide Level 26.9 MEQ/L Anion Gap 9 MEQ/L Blood Urea Nitrogen 13 MG/DL Creatinine 0.66 MG/DL Estimat Glomerular Filtration 124 ML/MIN Rate Random Glucose 125 MG/DL Calcium Level 8.2 MG/DL Magnesium Level 2.2 MG/DL Total Bilirubin 0.7 MG/DL Aspartate Amino Transf 35 U/L (AST/SGOT) Alanine Aminotransferase 36 U/L (ALT/SGPT) Alkaline Phosphatase 54 U/L Total Protein 6.3 GM/DL Albumin 2.5 GM/DL White Blood Count 10.5 TH/MM3 Red Blood Count 3.16 MIL/MM3 Hemoglobin 10.4 GM/DL Hematocrit 29.7 % Mean Corpuscular Volume 94.2 FL Mean Corpuscular Hemoglobin 32.8 PG Mean Corpuscular Hemoglobin 34.8 % Concent Red Cell Distribution Width 13.3 % Platelet Count 175 TH/MM3 Mean Platelet Volume 7.7 FL Neutrophils (%) (Auto) 75.4 % Lymphocytes (%) (Auto) 13.3 % Monocytes (%) (Auto) 7.3 % Eosinophils (%) (Auto) 3.3 % Basophils (%) (Auto) 0.7 % Neutrophils # (Auto) 7.9 TH/MM3 Lymphocytes # (Auto) 1.4 TH/MM3 Monocytes # (Auto) 0.8 TH/MM3 Eosinophils # (Auto) 0.4 TH/MM3 Basophils # (Auto) 0.1 TH/MM3 CBC Comment DIFF FINAL Differential Comment Radiology Last Impressions Chest X-Ray 05/30/16 0600 Signed Impressions: Service Date/Time: Monday, May 30, 2016 05:31 - CONCLUSION: 1. Stable exam compared with May 28 with multiple left rib fractures and left greater than right airspace disease. Deep Domínguez MD Head CT 05/27/16 0600 Signed Impressions: Service Date/Time: May 05:11 - CONCLUSION: Small right parietal extra-axial hemorrhage is seen more posteriorly than on the comparison study but unchanged in thickness. Oni Fountain MD Shoulder X-Ray 05/27/16 0000 Signed Impressions: Service Date/Time: May 07:32 - CONCLUSION: Anatomic alignment. Juan C Izquierdo MD FACR Pelvis X-Ray 05/26/16 1554 Signed Impressions: Service Date/Time: Thursday, May 26, 2016 15:45 - CONCLUSION: Suspected widening of the pubic symphysis. The patient is scheduled for CT examination of the abdomen and pelvis. Fausto Jay MD Chest CT 05/26/16 1554 Signed Impressions: Service Date/Time: Thursday, May 26, 2016 16:31 - CONCLUSION: Significant bony trauma with fracture dislocation of the right shoulder joint, comminuted fracture of the left clavicle, fracture left scapula and multiple left upper rib fractures. No evidence of pneumothorax or significant airspace disease. No evidence of mediastinal soft tissue or vascular injury. Cholelithiasis. Sandip Gregg MD Cervical Spine CT 05/26/16 1554 Signed Impressions: Service Date/Time: Thursday, May 26, 2016 16:21 - CONCLUSION: No evidence of acute bony or soft tissue trauma. Mild to moderate degenerative disc disease. Sandip Gregg MD Abdomen/Pelvis CT 05/26/16 1554 Signed Impressions: Service Date/Time: Thursday, May 26, 2016 16:31 - CONCLUSION: No acute abnormality is seen. There are calcified gallstones, sigmoid colon diverticula , and degenerative change in the lumbar spine. Fausto Jay MD Narrative Exam GENERAL: This is a 60-year-old male out of bed in a recliner chair. SKIN: Warm and dry. HEAD: Atraumatic. Normocephalic. EYES: PERRLA ENT: No nasal bleeding or discharge. Mucous membranes pink and moist. NECK: Trachea midline. No JVD. CARDIOVASCULAR: Regular rate and rhythm. RESPIRATORY: No accessory muscle use. Lungs are clear to auscultation. Breath sounds equal bilaterally. No distress or dyspnea. GASTROINTESTINAL: BS + x 4 quads. Abdomen soft, non-tender, nondistended. MUSCULOSKELETAL: Extremities without cyanosis, or edema. + peripheral pulses x 4 extremities. RIGHT arm in a sling . Warm with good capillary refill and sensation. MAEW. NEUROLOGICAL: Awake and alert. Normal speech and pattern. A/P Problem List: (1) Tobacco abuse (2) Scapular fracture (3) Fracture dislocation of right shoulder joint (4) Back pain (5) Subdural hemorrhage Assessment and Plan QAGAN TAYAGUNGIN: This is a 60-year-old male who sustained a fall from a palm tree approximately 20 feet and landed on the concrete. He landed on his right shoulder. EtOH equals 127. INJURIES: SDH Left clavicle fracture Left scapular fracture Right shoulder dislocation Left upper rib fractures Consults: Orthopedics, neurosurgery. Procedures: 05/26: Reduction attempt at bedside under conscious sedation 05/27: Closed reduction of right shoulder. Closed reduction of right proximal humerus Diet: Regular ADA diet. Tolerating po diet. Encourage good po intake with each meal. All home medications restarted - patient's behavior and mood much improved after restarting his home meds. Pulmonary: Encourage good pulmonary toileting. IS and acapella at bedside and pt encouraged to use. Rationale for use explained to patient, and verbalized understanding. EZpap ordered. Chest x-ray: Possible pleural effusion and patchy left lung disease. PAIN Management: Percocet po. Robaxin. Lidoderm patch. Toradol. Patient states his pain is controlled. Activity: OOB. PT and OT ordered. Patient states that he has been working with PT. GI prophylaxis: Protonix IV. Bowel regimen: Colace and MOM. Lactulose daily. LBM: 06/01 DVT prophylaxis: Mechanical VTE with SCDs. Chemical management with Lovenox 40 daily - cleared and ordered by neurosurgery. DC Planning: Case management consulted for assistance with final discharge disposition. Both PT and OT recommend inpatient rehabilitation. [facility] however rehabilitation is considered "out of network." Case management expertise is needed to assist in obtaining final placement that is approved by the [facility]. Emotional support provided to patient and family at bedside and plan of care discussed. Discussed with RN at bedside. Patient is hemodynamically stable and being managed on the med/surg floor. He has been cleared by neurosurgery, and orthopedics for discharge. Therefore the patient is stable to be discharged to a SNF at any time. Problem Qualifiers (1) Scapular fracture: Qualified Code: S42.102A - Closed fracture of left scapula, unspecified part of scapula, initial encounter (2) Fracture dislocation of right shoulder joint: Qualified Code: S42.91XA - Fracture dislocation of right shoulder joint, closed , initial encounter Carlee Crespo Jun 01, 2016 14:35
[2016-06-01] MEDS: ENOXAPARIN SODIUM 40 MG/0.4 ML SYRINGE SQ SCH (18:54)
[2016-06-01 20:00] VITALS: BP 126/72; PULSE 81; RESP 22; TEMP 98.4; O2SAT 93
[2016-06-01] MEDS: FAMOTIDINE 20 MG TAB PO SCH (21:22)
[2016-06-01] MEDS: traZODone HCL 100 MG TAB PO SCH (21:22)
[2016-06-01] MEDS: REMOVE OLD PATCH T-DERMAL SCH (21:25)
[2016-06-01] MEDS: MAGNESIUM HYDROXIDE SUSP 30 ML CUP PO SCH (21:25)
[2016-06-02] VITALS: BP 121/67; PULSE 78; RESP 18; TEMP 96.6; O2SAT 93
[2016-06-02 04:00] VITALS: BP 120/77; PULSE 81; RESP 18; TEMP 96.8; O2SAT 94
[2016-06-02] MEDS: METHOCARBAMOL 500 MG TAB PO SCH ×2 (05:52→15:18)
[2016-06-02 08:00] VITALS: BP 109/67; PULSE 85; RESP 18; TEMP 98.8; O2SAT 95
[2016-06-02] MEDS: LITHIUM CARBONATE 300 MG SLOW RELEASE TAB PO SCH (09:31)
[2016-06-02] MEDS: oxyCODONE/ACETAMINOPHEN 5 MG/325 MG TAB PO PRN ×2 (09:31→15:18)
[2016-06-02] MEDS: levETIRAcetam 500 MG TAB PO SCH (09:32)
[2016-06-02] MEDS: GABAPENTIN 100 MG CAP PO SCH ×3 (09:32→18:24)
[2016-06-02] MEDS: FAMOTIDINE 20 MG TAB PO SCH (09:32)
[2016-06-02] MEDS: buPROPion HCL 150 MG SUSTAINED RELEASE TAB PO SCH (09:32)
[2016-06-02] MEDS: ESCITALOPRAM OXALATE 20 MG TAB PO SCH (09:32)
[2016-06-02] MEDS: LIDOCAINE HCL 5% PATCH TD SCH (09:41)
[2016-06-02 12:00] VITALS: BP 109/63; PULSE 79; RESP 18; TEMP 97.7; O2SAT 95
--- NOTE | 2016-06-02 12:29 | HHI.PR ---
Neuropsych Emotional Emotional: Intact: Constricted/Blunted, Mild: Depressed/Sad Behavior Behavior: Intact: Behavior, Coping/Acceptance, Motivation, Impulsive/Agitated, Suicidal/Homicidal Risk, Mild: Cooperative w/ Treatment, Frustration Tolerance/ [place] Cognitive Cognitive: Mild: Attention/Concentration, Confused/Orientation, Insight/ Awareness, Judgement/Problem-Solving Progress Notes/Response to Tx Contents of Sessions: Adjustment, Level of Consciousness Time with Patient: 15 minutes Premorbid psychological status Premorbid Cognitive, Emotional and Behavioral Status: Relatively Stable. The patient has a high school education and a work history as a lawn care provider. He has prior psychiatric difficulties, consisting of bipolar disorder for which he receives and is compliant with his medications. Substance abuse history includes alcohol use. Behavioral Reactions of Patient and Family/Support System: Tenuous. The patients family is not present. He reports that he has many friends, and lives with a girlfriend. Emotional/Behavioral Status of Patient and Family/Support System: Tenuous. Pertinent issues, if appropriate to this patients clinical care, are described in detail above. Maximizing acute care outcome It is recommended that the patient be monitored for emergent behavioral impulsivity as the medical condition evolves. However, at present, possible issues related to behavior due to his bipolar condition have been managed quite effectively. This patients neurobehavioral challenges from his preexisting psychiatric condition may limit their rehabilitation potential going forward, and these challenges will require specialized therapeutic skills to maximize outcome. Anticipated Problems Ongoing areas of concern will include behavioral impulsivity, lack of insight and judgment, which is expected to improve with time and treatment. Presently , the patient is following commands. Treatment Plan This clinician will continue to follow with you throughout the course of this patients rehabilitation treatment, and I will be available to meet with the patients family/support system to facilitate their understanding and the ongoing care of their family member. The goals of neuropsychological intervention shall be both educational and supportive to the family/support system as is deemed clinically appropriate. [facility] Level: VII:Automatic-appropriate Impression This patient is a 60 year old man who fell out of a palm tree, and sustained concussion. The majority of his neurocognitive symptoms appear resolved. He does have a longstanding history of bipolar disorder, that is presently being appropriately treated by his home medications. He reported no psychological issues at this point in his recovery, but he will continue to be followed. Diagnosis: (1) Mild neurocognitive disorder Status: Resolved (2) Bipolar disorder, unspecified Status: Chronic Progress Note Narrative Ongoing follow-up of patient who was seen bedside. This patient is improving, still somewhat confused on higher level reasoning tasks, but demonstrating adequate basic insight, awareness and judgment. His neurobehavioral issues stemming from his bipolar disorder are being effectively managed. I will continue to follow with you during this stay. Raymond Cisneros PhD Jun 02, 2016 12:29 pm
--- NOTE | 2016-06-02 12:53 | HHI.PR ---
Subjective Subjective Notes PTD: 11 In recliner chair. No complaints offered. Objective Vitals/I&O Vital Signs Date Time Temp Pulse Resp B/P Pulse Ox O2 Delivery O2 Flow Rate FiO2 06/02/16 08:00 98.8 85 18 109/67 95 05/30/16 21:31 Nasal Cannula 3.00 50 Labs Laboratory Tests Test 05/30/16 05/30/16 05:00 05:50 Sodium Level 139 MEQ/L Potassium Level 3.4 MEQ/L Chloride Level 103 MEQ/L Carbon Dioxide Level 26.9 MEQ/L Anion Gap 9 MEQ/L Blood Urea Nitrogen 13 MG/DL Creatinine 0.66 MG/DL Estimat Glomerular Filtration 124 ML/MIN Rate Random Glucose 125 MG/DL Calcium Level 8.2 MG/DL Magnesium Level 2.2 MG/DL Total Bilirubin 0.7 MG/DL Aspartate Amino Transf 35 U/L (AST/SGOT) Alanine Aminotransferase 36 U/L (ALT/SGPT) Alkaline Phosphatase 54 U/L Total Protein 6.3 GM/DL Albumin 2.5 GM/DL White Blood Count 10.5 TH/MM3 Red Blood Count 3.16 MIL/MM3 Hemoglobin 10.4 GM/DL Hematocrit 29.7 % Mean Corpuscular Volume 94.2 FL Mean Corpuscular Hemoglobin 32.8 PG Mean Corpuscular Hemoglobin 34.8 % Concent Red Cell Distribution Width 13.3 % Platelet Count 175 TH/MM3 Mean Platelet Volume 7.7 FL Neutrophils (%) (Auto) 75.4 % Lymphocytes (%) (Auto) 13.3 % Monocytes (%) (Auto) 7.3 % Eosinophils (%) (Auto) 3.3 % Basophils (%) (Auto) 0.7 % Neutrophils # (Auto) 7.9 TH/MM3 Lymphocytes # (Auto) 1.4 TH/MM3 Monocytes # (Auto) 0.8 TH/MM3 Eosinophils # (Auto) 0.4 TH/MM3 Basophils # (Auto) 0.1 TH/MM3 CBC Comment DIFF FINAL Differential Comment Radiology Last Impressions Chest X-Ray 05/30/16 0600 Signed Impressions: Service Date/Time: Monday, May 30, 2016 05:31 - CONCLUSION: 1. Stable exam compared with May 28 with multiple left rib fractures and left greater than right airspace disease. Deep Domínguez MD Head CT 05/27/16 0600 Signed Impressions: Service Date/Time: May 05:11 - CONCLUSION: Small right parietal extra-axial hemorrhage is seen more posteriorly than on the comparison study but unchanged in thickness. Oni Fountain MD Shoulder X-Ray 05/27/16 0000 Signed Impressions: Service Date/Time: May 07:32 - CONCLUSION: Anatomic alignment. Juan C Izquierdo MD FACR Pelvis X-Ray 05/26/16 1554 Signed Impressions: Service Date/Time: Thursday, May 26, 2016 15:45 - CONCLUSION: Suspected widening of the pubic symphysis. The patient is scheduled for CT examination of the abdomen and pelvis. Fausto Jay MD Chest CT 05/26/16 1554 Signed Impressions: Service Date/Time: Thursday, May 26, 2016 16:31 - CONCLUSION: Significant bony trauma with fracture dislocation of the right shoulder joint, comminuted fracture of the left clavicle, fracture left scapula and multiple left upper rib fractures. No evidence of pneumothorax or significant airspace disease. No evidence of mediastinal soft tissue or vascular injury. Cholelithiasis. Sandip Gregg MD Cervical Spine CT 05/26/16 1554 Signed Impressions: Service Date/Time: Thursday, May 26, 2016 16:21 - CONCLUSION: No evidence of acute bony or soft tissue trauma. Mild to moderate degenerative disc disease. Sandip Gregg MD Abdomen/Pelvis CT 05/26/16 1554 Signed Impressions: Service Date/Time: Thursday, May 26, 2016 16:31 - CONCLUSION: No acute abnormality is seen. There are calcified gallstones, sigmoid colon diverticula , and degenerative change in the lumbar spine. Fausto Jay MD Narrative Exam GENERAL: This is a 60-year-old male sitting up in a recliner chair SKIN: Warm and dry. HEAD: Atraumatic. Normocephalic. EYES: PERRLA ENT: No nasal bleeding or discharge. Mucous membranes pink and moist. NECK: Trachea midline. No JVD. CARDIOVASCULAR: Regular rate and rhythm. RESPIRATORY: No accessory muscle use. Lungs are clear to auscultation. Breath sounds equal bilaterally. No distress or dyspnea. GASTROINTESTINAL: BS + x 4 quads. Abdomen soft, non-tender, nondistended. MUSCULOSKELETAL: Extremities without cyanosis, or edema. + peripheral pulses x 4 extremities. Right arm in a sling . Warm with good capillary refill and sensation. MAEW. NEUROLOGICAL: Awake and alert. Normal speech and pattern. A/P Problem List: (1) Tobacco abuse (2) Scapular fracture (3) Fracture dislocation of right shoulder joint (4) Back pain (5) Subdural hemorrhage Assessment and Plan MECHOOPDA: This is a 60-year-old male who sustained a fall from a palm tree approximately 20 feet and landed on the concrete. He landed on his right shoulder. EtOH equals 127. INJURIES: SDH Left clavicle fracture Left scapular fracture Right shoulder dislocation Left upper rib fractures Consults: Orthopedics, neurosurgery. Procedures: 05/26: Reduction attempt at bedside under conscious sedation 05/27: Closed reduction of right shoulder. Closed reduction of right proximal humerus Diet: Regular ADA diet. Tolerating po diet. Encourage good po intake with each meal. All home medications restarted - patient's behavior and mood much improved after restarting his home meds. Pulmonary: Encourage good pulmonary toileting. IS and acapella at bedside and pt encouraged to use. Rationale for use explained to patient, and verbalized understanding. EZpap ordered. Chest x-ray: Possible pleural effusion and patchy left lung disease. PAIN Management: Percocet po. Robaxin. Lidoderm patch. Toradol. Patient states his pain is controlled. Activity: OOB. PT and OT ordered. (NWB RUE; minimal WB LUE) Patient states that he has been working with PT. GI prophylaxis: Pepcid po. Bowel regimen: Anisha-colace and MOM. Lactulose daily. LBM: 06/02 DVT prophylaxis: Mechanical VTE with SCDs. Chemical management with Lovenox 40 daily - cleared and ordered by neurosurgery. DC Planning: Case management consulted for assistance with final discharge disposition. Both PT and OT recommend inpatient rehabilitation. Patient has been accepted at [facility]. Emotional support provided to patient and family at bedside and plan of care discussed. Discussed with RN at bedside. Patient is hemodynamically stable and being managed on the med/surg floor. He has been cleared by neurosurgery and orthopedics for discharge. Therefore the patient is stable to be discharged to a SNF at any time. He has been accepted at [facility] and will DC today. Problem Qualifiers (1) Scapular fracture: Qualified Code: S42.102A - Closed fracture of left scapula, unspecified part of scapula, initial encounter (2) Fracture dislocation of right shoulder joint: Qualified Code: S42.91XA - Fracture dislocation of right shoulder joint, closed , initial encounter (3) Back pain: Carlee Crespo Jun 02, 2016 12:53
[2016-06-02] MEDS: ENOXAPARIN SODIUM 40 MG/0.4 ML SYRINGE SQ SCH (18:24)
--- NOTE | 2016-06-03 13:57 | RADRPT ---
EXAM DATE/TIME: 05/31/2016 12:29 [facility] COMPARISON: CHEST SINGLE AP, May 31, 2016, 5:41. INDICATIONS : Right shoulder pain, fall from tree. MEDICAL HISTORY : None. SURGICAL HISTORY : None. ENCOUNTER: Initial ACUITY: 4 - 6 days PAIN SCORE: 10/10 LOCATION: Right shoulder FINDINGS: The examination demonstrates a moderately displaced fracture of the proximal right humerus. The great er tuberosity is a free fragment. There does appear to be linear fracture through the surgical neck o f the humerus as well. The upper chest demonstrates questionable fracture through at least 2 ribs. There is a buckle which p artially obscured as this area. Dedicated rib series would be of benefit for further assessment. CONCLUSION: 1. Fracture of the proximal humerus as above. 2. Possible fracture of 2 upper right ribs as well. Johnny Izquierdo MD on May 31, 2016 at 16:08 Board Certified Radiologist. This report was verified electronically.
--- NOTE | 2016-06-15 14:39 | HHI.DS ---
Discharge Summary Admission Date May 26, 2016 at 16:47 Discharge Date: Jun 02, 2016 Admitting Diagnosis subdural hemorrhage, scapula fracture, shoulder dislocation, rib fx (1) Tobacco abuse Diagnosis: Secondary (2) Scapular fracture Diagnosis: Principal (3) Fracture dislocation of right shoulder joint Diagnosis: Principal (4) Back pain Diagnosis: Principal (5) Subdural hemorrhage Diagnosis: Principal Brief History Fall Imaging Last Impressions Chest X-Ray 05/31/16 0600 Signed Impressions: Service Date/Time: Tuesday, May 31, 2016 05:41 - CONCLUSION: Multiple fractures are noted as above with left apical pleural thickening felt to represent a pleural effusion, and patchy left lung disease. Florian Rincon MD Shoulder X-Ray 05/31/16 0000 Signed Impressions: Service Date/Time: Tuesday, May 31, 2016 12:29 - CONCLUSION: 1. Fracture of the proximal humerus as above. 2. Possible fracture of 2 upper right ribs as well. Johnny Izquierdo MD Head CT 05/27/16 0600 Signed Impressions: Service Date/Time: May 05:11 - CONCLUSION: Small right parietal extra-axial hemorrhage is seen more posteriorly than on the comparison study but unchanged in thickness. Oni Fountain MD Pelvis X-Ray 05/26/16 1554 Signed Impressions: Service Date/Time: Thursday, May 26, 2016 15:45 - CONCLUSION: Suspected widening of the pubic symphysis. The patient is scheduled for CT examination of the abdomen and pelvis. Fausto Jay MD Chest CT 05/26/16 1554 Signed Impressions: Service Date/Time: Thursday, May 26, 2016 16:31 - CONCLUSION: Significant bony trauma with fracture dislocation of the right shoulder joint, comminuted fracture of the left clavicle, fracture left scapula and multiple left upper rib fractures. No evidence of pneumothorax or significant airspace disease. No evidence of mediastinal soft tissue or vascular injury. Cholelithiasis. Sandip Gregg MD Cervical Spine CT 05/26/16 6146 Signed Impressions: Service Date/Time: Thursday, May 26, 2016 16:21 - CONCLUSION: No evidence of acute bony or soft tissue trauma. Mild to moderate degenerative disc disease. Sandip Gregg MD Abdomen/Pelvis CT 05/26/16 3239 Signed Impressions: Service Date/Time: Thursday, May 26, 2016 16:31 - CONCLUSION: No acute abnormality is seen. There are calcified gallstones, sigmoid colon diverticula , and degenerative change in the lumbar spine. Fausto Jay MD PE at Discharge GENERAL: This is a 60-year-old male sitting up in a recliner chair SKIN: Warm and dry. HEAD: Atraumatic. Normocephalic. EYES: PERRLA ENT: No nasal bleeding or discharge. Mucous membranes pink and moist. NECK: Trachea midline. No JVD. CARDIOVASCULAR: Regular rate and rhythm. RESPIRATORY: No accessory muscle use. Lungs are clear to auscultation. Breath sounds equal bilaterally. No distress or dyspnea. GASTROINTESTINAL: BS + x 4 quads. Abdomen soft, non-tender, nondistended. MUSCULOSKELETAL: Extremities without cyanosis, or edema. + peripheral pulses x 4 extremities. Right arm in a sling . Warm with good capillary refill and sensation. MAEW. NEUROLOGICAL: Awake and alert. Normal speech and pattern. Hospital Course [place]: This is a 60-year-old male who sustained a fall from a palm tree approximately 20 feet and landed on the concrete. He landed on his right shoulder. EtOH equals 127. He was originally managed in the ICU, however he has progressed to be managed on the Med/surg floor. INJURIES: SDH Left clavicle fracture Left scapular fracture Right shoulder dislocation Left upper rib fractures Consults: Orthopedics, neurosurgery. Procedures: 05/26: Reduction attempt at bedside under conscious sedation 05/27: Closed reduction of right shoulder. Closed reduction of right proximal humerus Diet: Regular ADA diet. Tolerating po diet. Encourage good po intake with each meal. All home medications restarted - patient's behavior and mood much improved after restarting his home meds. These are to continue at rehab. Pulmonary: Encourage good pulmonary toileting. IS and acapella at bedside and pt encouraged to use. Rationale for use explained to patient, and verbalized understanding. PAIN Management: Percocet po. Robaxin. Lidoderm patch. Toradol. Patient states his pain is controlled. These meds are to continue at rehab to maintain pain control. Activity: OOB. PT and OT ordered. (NWB RUE; minimal WB LUE) Patient states that he has been working with PT and OT and this therapy will continue at rehab. GI prophylaxis: Pepcid po. Bowel regimen: Anisha-colace and MOM. Lactulose daily. LBM: 06/02 DVT prophylaxis: Mechanical VTE with SCDs. Chemical management with Lovenox 40 daily - cleared and ordered by neurosurgery. DC Planning: Case management consulted for assistance with final discharge disposition. Both PT and OT recommend inpatient rehabilitation. Patient has been accepted at [facility]. Patient is hemodynamically stable and being managed on the med/surg floor. He has been cleared by neurosurgery and orthopedics for discharge. Therefore the patient is stable to be discharged to a SNF/rehab at any time. He has been accepted at [facility] and will DC today. Thank you for allowing us to participate in his care. We wish Joseph the best in his recovery. Pt Condition on Discharge: Stable Discharge Disposition: Discharge to SNF Discharge Instructions DIET: Follow Instructions for: Diabetic Diet Activities you can perform: Non Weight Bearing Activities to Avoid: Driving for 24 hrs, Contact Sports, Lifting/Bending, Weight Bearing, Strenuous Activity Other Activity Instructions: Nonweightbearing right upper extremity Minimal weight-bearing left upper extremity Carlee Crespo Jun 15, 2016 14:39
== END 2016-06-02 18:28 | disposition home health service (06) | DRG 964 ==
LOC: NEPI 15:49 → NEDA 16:47 → MERGE 16:47 → EDBD 16:47 → N03A 17:12 → N05A 05-29 16:32
PROVIDERS: ADMIT Surgery; ATTEND Surgery
PROC: 0RSJXZZ Reposition Right Shoulder Joint, External Approach (ICD-10-PCS; principal; 2016-05-26)
PROC: 0PSCXZZ Reposition Right Humeral Head, External Approach (ICD-10-PCS; 2016-05-27)
PROC: 0RSJXZZ Reposition Right Shoulder Joint, External Approach (ICD-10-PCS; 2016-05-27)
DX: S06.5X9A Traumatic subdural hemorrhage with loss of consciousness of unspecified duration, initial encounter (principal); S42.251A Displaced fracture of greater tuberosity of right humerus, initial encounter for closed fracture; S27.322A Contusion of lung, bilateral, initial encounter; S22.43XA Multiple fractures of ribs, bilateral, initial encounter for closed fracture; S43.014A Anterior dislocation of right humerus, initial encounter; S42.002A Fracture of unspecified part of left clavicle, initial encounter for closed fracture; S42.101A Fracture of unspecified part of scapula, right shoulder, initial encounter for closed fracture; S42.102A Fracture of unspecified part of scapula, left shoulder, initial encounter for closed fracture; W14.XXXA Fall from tree, initial encounter; Y93.H2 Activity, gardening and landscaping; Y92.9 Unspecified place or not applicable; Y99.9 Unspecified external cause status; F17.200 Nicotine dependence, unspecified, uncomplicated; K80.20 Calculus of gallbladder without cholecystitis without obstruction; K57.30 Diverticulosis of large intestine without perforation or abscess without bleeding; F10.129 Alcohol abuse with intoxication, unspecified; E87.6 Hypokalemia; M54.9 Dorsalgia, unspecified; F31.9 Bipolar disorder, unspecified
CPT/HCPCS: 23650; 70450; 71010; 71260; 72125; 72170; 73020; 73030; 74177; 76000; 80048; 80053; 80076; 80307; 82435; 82565; 82947; 82948; 83735; 84132; 84295; 84520; 85025; 85027; 85610; 85730; 86850; 86900; 86901; 90471; 90715; 93005; 94150; 94640; 94664; 94667; 94668; 96374; 96375; 96376; 99152; 99153; 99291; C9113; G0390; J1170; J1650; J1885; J1953; J2250; J2270; J2405; J3010; J7030; Q9967

== ENCOUNTER 2017-03-02 11:29 | Inpatient (IN) | payer OTHER ==
[~2017-03-02] VITALS: Ht 182.9 cm; Wt 94.5 kg
[~2017-03-02 11:29] MED LIST changes: +BUPR1TAB29 PO; -DEPA500T3 PO; +ENOX40P SQ; +ESCI20TA PO; -FOLI1TAB PO; +GABA100C4 PO; -HALO5 PO; +HYDR-3288 PO; +LACT10SO PO; +LITH300T PO; -MAGN400T19 PO; +METH500T3 PO; +PANT40P PO; +SENN1TAB PO; -TAB-TAB PO; -THIA100T PO; +TRAZ100T4 PO
[2017-03-02 11:47] VITALS: BP 145/74; PULSE 104; RESP 18; TEMP 98.3; O2SAT 98
--- NOTE | 2017-03-02 12:31 | PD ---
HPI Chief Complaint: Psychiatric Symptoms Time Seen by Provider: 12:31 Travel History International Travel<30 days: No Contact w/Intl Traveler<30days: No Traveled to known affect area: No History of Present Illness HPI 61-year-old male presents to emergency department for psychiatric evaluation. Patient states he has been having worsening depression and suicidal thoughts. Currently he does not have a plan but he has recently. He denies any acute medical needs. PFSH Past Medical History Anxiety: Yes Depression: Yes Cancer: No Cardiovascular Problems: No Diminished Hearing: No Endocrine: No Genitourinary: No Immune Disorder: No Musculoskeletal: No Neurologic: No Reproductive: No Respiratory: No Past Surgical History Cardiac Surgery: No Other Surgery: Yes (right inguinal hernia repair many years ago) Social History Alcohol Use: Yes Tobacco Use: Yes Substance Use: No Allergies-Medications (Allergen,Severity, Reaction): Coded Allergies: No Known Allergies (Unverified , 05/27/16) Reported Meds & Prescriptions Reported Meds & Active Scripts Active Senna Plus 8.6-50 mg (Sennosides-Docusate Sodium) 1 Tab Tab 2 Tab PO BID 30 Days Protonix Inj (Pantoprazole Sodium) 40 Mg Inj 40 Mg PO Q24H 30 Days Methocarbamol 500 Mg Tab 500 Mg PO Q8HR 15 Days Lactulose Liq (Lactulose) 10 Gm/15 Ml Soln 30 Ml PO DAILY 30 Days Gabapentin 100 Mg Cap 200 Mg PO TID 30 Days Lovenox Inj (Enoxaparin Sodium) 40 Mg/0.4 Ml Syr 40 Mg SQ Q24H 30 Days [place] (Hydrocodone-Acetaminophen) 7.5-325 mg Tab 1 Tab PO Q4H PRN Reported Trazodone (Trazodone HCl) 100 Mg Tab 100 Mg PO HS [place] Carbonate ER ([place] Carbonate) 300 Mg Tab 300 Mg PO BID Bupropion HCl ER 12 HR (Bupropion HCl) 150 Mg Tab 150 Mg PO Q12HR Escitalopram (Escitalopram Oxalate) 20 Mg Tab 20 Mg PO DAILY Review of Systems Except as stated in HPI: all other systems reviewed are Neg Physical Exam Narrative GENERAL: Well-nourished male patient, lying in bed in no acute distress. SKIN: Focused skin assessment warm/dry. HEAD: Atraumatic. Normocephalic. EYES: Pupils equal and round. No scleral icterus. No injection or drainage. ENT: No nasal bleeding or discharge. Mucous membranes pink and moist. NECK: Trachea midline. No JVD. CARDIOVASCULAR: Regular rate and rhythm. No murmur appreciated. RESPIRATORY: No accessory muscle use. Clear to auscultation. Breath sounds equal bilaterally. GASTROINTESTINAL: Abdomen soft, non-tender, nondistended. Hepatic and splenic margins not palpable. MUSCULOSKELETAL: No obvious deformities. No clubbing. No cyanosis. No edema. NEUROLOGICAL: Awake and alert. No obvious cranial nerve deficits. Motor grossly within normal limits. Normal speech. Data Data Last Documented VS Vital Signs Date Time Temp Pulse Resp B/P (MAP) Pulse Ox O2 Delivery O2 Flow Rate FiO2 03/02/17 11:47 98.3 104 18 145/74 (97) 98 Room Air Orders Orders Diet Regular Basic (03/02/17 Lunch) Complete Blood Count With Diff (03/02/17 12:05) Basic Metabolic Panel (Bmp) (03/02/17 12:05) Psych Screen (03/02/17 12:05) Drug Screen, Random Urine (03/02/17 12:05) Alcohol (Ethanol) (03/02/17 12:05) Diet Regular Basic (03/02/17 Dinner) [place] (Li) (03/02/17 12:25) Potassium Chloride (Kcl) (03/02/17 13:30) Olanzapine (Zyprexa) (03/02/17 16:15) Diphenhydramine (Benadryl) (03/02/17 16:15) Labs Laboratory Tests Test 03/02/17 12:21 03/02/17 14:05 White Blood Count 8.3 TH/MM3 Red Blood Count 3.97 MIL/MM3 Hemoglobin 13.6 GM/DL Hematocrit 37.9 % Mean Corpuscular Volume 95.4 FL Mean Corpuscular Hemoglobin 34.2 PG Mean Corpuscular Hemoglobin Concent 35.8 % Red Cell Distribution Width 14.7 % Platelet Count 81 TH/MM3 Mean Platelet Volume 8.3 FL Neutrophils (%) (Auto) 73.6 % Lymphocytes (%) (Auto) 15.3 % Monocytes (%) (Auto) 8.0 % Eosinophils (%) (Auto) 2.8 % Basophils (%) (Auto) 0.3 % Neutrophils # (Auto) 6.1 TH/MM3 Lymphocytes # (Auto) 1.3 TH/MM3 Monocytes # (Auto) 0.7 TH/MM3 Eosinophils # (Auto) 0.2 TH/MM3 Basophils # (Auto) 0.0 TH/MM3 CBC Comment AUTO DIFF Differential Comment AUTO DIFF CONFIRMED Platelet Estimate LOW Platelet Morphology Comment NORMAL Blood Urea Nitrogen 21 MG/DL Creatinine 0.88 MG/DL Random Glucose 96 MG/DL Calcium Level 9.2 MG/DL Sodium Level 134 MEQ/L Potassium Level 2.7 MEQ/L Chloride Level 95 MEQ/L Carbon Dioxide Level 31.7 MEQ/L Anion Gap 7 MEQ/L Estimat Glomerular Filtration Rate 89 ML/MIN Ethyl Alcohol Level LESS THAN 3 MG/DL Urine Opiates Screen NEG Urine Barbiturates Screen NEG Urine Amphetamines Screen NEG Urine Benzodiazepines Screen NEG Urine Cocaine Screen NEG Urine Cannabinoids Screen NEG MDM Medical Decision Making Medical Screen Exam Complete: Yes Emergency Medical Condition: Yes Medical Record Reviewed: Yes Differential Diagnosis Mood disorder versus personality disorder versus adjustment reaction disorder Narrative Course 61-year-old male presents to emergency department psychiatric evaluation. Patient reports depression emesis suicidal thoughts, and a previous suicidal plan. He appears without distress. Potassium is repleted, otherwise lab work is without acute concern. Patient is medically cleared for psychiatric screening for further evaluation and disposition. Mental health screening discussed with the patient. Psychiatric screen ordered. Contacted by GRACE Woodall in regards the patient's behavior. Patient is given by mouth Zyprexa and Benadryl. Diagnosis Primary Impression: Bipolar disorder, unspecified Qualified Codes: F31.32 - Bipolar disorder, current episode depressed, moderate Condition: Stable ThereseElla MIRANDA Mar 02, 2017 12:31
[2017-03-02 12:36] LABS: AUTOMATED NEUTROPHIL # 6.1 TH/MM3 (1.8-7.7); BASOPHIL % 0.3 % (0.0-2.0); EOSINOPHIL # 0.2 TH/MM3 (0-0.4); EOSINOPHIL % 2.8 % (0.0-4.0); HEMATOCRIT 37.9 % (39.0-51.0); HEMOGLOBIN 13.6 GM/DL (13.0-17.0); LYMPH % 15.3 % (9.0-44.0); LYMPHOCYTE # 1.3 TH/MM3 (1.0-4.8); MEAN CELL VOLUME 95.4 FL (80.0-100.0); MEAN CORPUSCULAR HEMOGLOBIN 34.2 PG (27.0-34.0); MEAN CORPUSCULAR HGB CONC 35.8 % (32.0-36.0); MEAN PLATELET VOLUME 8.3 FL (7.0-11.0); MONOCYTE # 0.7 TH/MM3 (0-0.9); NEUT % 73.6 % (16.0-70.0); PLATELET COUNT 81 TH/MM3 (150-450); RED BLOOD COUNT 3.97 MIL/MM3 (4.50-5.90); RED CELL DISTRIBUTION WIDTH 14.7 % (11.6-17.2); WHITE BLOOD COUNT 8.3 TH/MM3 (4.0-11.0)
[2017-03-02 13:01] LABS: BICARBONATE 31.7 MEQ/L (21.0-32.0); BLOOD UREA NITROGEN 21 MG/DL (7-18); CALCIUM 9.2 MG/DL (8.5-10.1); CHLORIDE 95 MEQ/L (98-107); CREATININE 0.88 MG/DL (0.60-1.30); GLOMERULAR FILTRATION RATE 89 ML/MIN (>89); GLUCOSE,RANDOM 96 MG/DL (74-106); SODIUM (NA) 134 MEQ/L (136-145)
[2017-03-02] MEDS ORDERED: POTASSIUM CHLORIDE 10 MEQ CONTROLLED RELEASE TAB PO ONE (13:30)
[2017-03-02] MEDS ORDERED: diphenhydrAMINE HCL 50 MG CAP PO ONE (16:15)
[2017-03-02] MEDS ORDERED: OLANZapine 10 MG TAB PO ONE (16:15)
--- NOTE | 2017-03-02 17:48 | PD ---
History of Present Illness Chief Complaint: Psychiatric Symptoms Time Seen by Provider: 17:30 Travel History International Travel<30 Days: No Contact w/Intl Traveler<30days: No Known affected area: No Legal Status Legal Status: Voluntary History of Present Illness: Grossy psychotic. Highly agitated. Suicidal PFSH Past Medical History Anxiety: Yes Depression: Yes Cancer: No Cardiovascular Problems: No Diminished Hearing: No Endocrine: No Genitourinary: No Immune Disorder: No Musculoskeletal: No Neurologic: No Reproductive: No Respiratory: No Past Surgical History Cardiac Surgery: No Other Surgery: Yes (right inguinal hernia repair many years ago) Psychiatric History Psychiatric History Hx Psychiatric Treatment: Pt denies History of Inpatient Treatment: No Social History Hx Alcohol Use: Yes Hx Tobacco Use: Yes Hx Substance Use: Yes Substance Use Type: Alcohol, Nicotine/Cigarettes Other Substances Used: Occasionally, Sporadically, 1 PPD. Hx of Substance Use Treatment: No Allergies-Medications (Allergen,Severity, Reaction): Coded Allergies: No Known Allergies (Unverified , 05/27/16) Reported Meds & Prescriptions Reported Meds & Active Scripts Active Senna Plus 8.6-50 mg (Sennosides-Docusate Sodium) 1 Tab Tab 2 Tab PO BID 30 Days Protonix Inj (Pantoprazole Sodium) 40 Mg Inj 40 Mg PO Q24H 30 Days Methocarbamol 500 Mg Tab 500 Mg PO Q8HR 15 Days Lactulose Liq (Lactulose) 10 Gm/15 Ml Soln 30 Ml PO DAILY 30 Days Gabapentin 100 Mg Cap 200 Mg PO TID 30 Days Lovenox Inj (Enoxaparin Sodium) 40 Mg/0.4 Ml Syr 40 Mg SQ Q24H 30 Days [place] (Hydrocodone-Acetaminophen) 7.5-325 mg Tab 1 Tab PO Q4H PRN Reported Trazodone (Trazodone HCl) 100 Mg Tab 100 Mg PO HS [place] Carbonate ER ([place] Carbonate) 300 Mg Tab 300 Mg PO BID Bupropion HCl ER 12 HR (Bupropion HCl) 150 Mg Tab 150 Mg PO Q12HR Escitalopram (Escitalopram Oxalate) 20 Mg Tab 20 Mg PO DAILY MDM Orders Orders Diet Regular Basic (03/02/17 Lunch) Complete Blood Count With Diff (03/02/17 12:05) Basic Metabolic Panel (Bmp) (03/02/17 12:05) Psych Screen (03/02/17 12:05) Drug Screen, Random Urine (03/02/17 12:05) Alcohol (Ethanol) (03/02/17 12:05) Diet Regular Basic (03/02/17 Dinner) [place] (Li) (03/02/17 12:25) Potassium Chloride (Kcl) (03/02/17 13:30) Olanzapine (Zyprexa) (03/02/17 16:15) Diphenhydramine (Benadryl) (03/02/17 16:15) Lorazepam Inj (Ativan Inj) (03/02/17 17:45) Results Vital Signs Date Time Temp Pulse Resp B/P (MAP) Pulse Ox O2 Delivery O2 Flow Rate FiO2 03/02/17 11:47 98.3 104 18 145/74 (97) 98 Room Air Laboratory Tests Test 03/02/17 12:21 03/02/17 14:05 White Blood Count 8.3 Red Blood Count 3.97 Hemoglobin 13.6 Hematocrit 37.9 Mean Corpuscular Volume 95.4 Mean Corpuscular Hemoglobin 34.2 Mean Corpuscular Hemoglobin Concent 35.8 Red Cell Distribution Width 14.7 Platelet Count 81 Mean Platelet Volume 8.3 Neutrophils (%) (Auto) 73.6 Lymphocytes (%) (Auto) 15.3 Monocytes (%) (Auto) 8.0 Eosinophils (%) (Auto) 2.8 Basophils (%) (Auto) 0.3 Neutrophils # (Auto) 6.1 Lymphocytes # (Auto) 1.3 Monocytes # (Auto) 0.7 Eosinophils # (Auto) 0.2 Basophils # (Auto) 0.0 CBC Comment AUTO DIFF Differential Comment AUTO DIFF CONFIRMED Platelet Estimate LOW Platelet Morphology Comment NORMAL Blood Urea Nitrogen 21 Creatinine 0.88 Random Glucose 96 Calcium Level 9.2 Sodium Level 134 Potassium Level 2.7 Chloride Level 95 Carbon Dioxide Level 31.7 Anion Gap 7 Estimat Glomerular Filtration Rate 89 [place] Level LESS THAN 0.1 Ethyl Alcohol Level LESS THAN 3 Urine Opiates Screen NEG Urine Barbiturates Screen NEG Urine Amphetamines Screen NEG Urine Benzodiazepines Screen NEG Urine Cocaine Screen NEG Urine Cannabinoids Screen NEG Diagnosis Primary Impression: Bipolar disorder, unspecified Condition: Stable Ruy Nance MD Mar 02, 2017 17:48
[2017-03-02 18:00] VITALS: BP 130/76; PULSE 104; RESP 16; TEMP 98.7; O2SAT 99
[2017-03-02] MEDS ORDERED: LORazepam 2 MG/ML VIAL IM ONE (18:00)
[2017-03-02 23:49] VITALS: BP 111/71; PULSE 81; RESP 17; TEMP 96.3; O2SAT 98
--- NOTE | 2017-03-02 23:55 | RADRPT ---
EXAM DATE/TIME: 03/02/2017 23:28 [place] COMPARISON: CT BRAIN W/O CONTRAST, May 27, 2016, 5:11. INDICATIONS : Altered mental status. RADIATION DOSE: 56.35 CTDIvol (mGy) MEDICAL HISTORY : [place]. SURGICAL HISTORY : None. ENCOUNTER: Initial ACUITY: 1 day PAIN SCALE: 0/10 LOCATION: cranial TECHNIQUE: Multiple contiguous axial images were obtained of the head. Using automated exposure control and adj ustment of the mA and/or kV according to patient size, radiation dose was kept as low as reasonably a chievable to obtain optimal diagnostic quality images. DICOM format image data is available electro nically for review and comparison. FINDINGS: CEREBRUM: The ventricles are normal for age. No evidence of midline shift, mass lesion, hemorrhage or acute in farction. No extra-axial fluid collections are seen. POSTERIOR FOSSA: The cerebellum and brainstem are intact. The 4th ventricle is midline. The cerebellopontine angle i s unremarkable. EXTRACRANIAL: The visualized portion of the orbits is intact. SKULL: The calvaria is intact. No evidence of skull fracture. CONCLUSION: No acute disease. Fausto Jay MD on March 02, 2017 at 23:52 Board Certified Radiologist. This report was verified electronically.
[2017-03-03 00:16] LABS: ALBUMIN 3.5 GM/DL (3.4-5.0); ALT (GPT) 173 U/L (12-78); AST (GOT) 191 U/L (15-37); BICARBONATE 33.6 MEQ/L (21.0-32.0); BLOOD UREA NITROGEN 21 MG/DL (7-18); CALCIUM 8.7 MG/DL (8.5-10.1); CHLORIDE 97 MEQ/L (98-107); CREATININE 0.97 MG/DL (0.60-1.30); GLOMERULAR FILTRATION RATE 79 ML/MIN (>89); GLUCOSE,RANDOM 88 MG/DL (74-106); MAGNESIUM 1.7 MG/DL (1.5-2.5); SODIUM (NA) 139 MEQ/L (136-145)
[2017-03-03 00:22] LABS: ALKALINE PHOSPHATASE 75 U/L (45-117); TOTAL BILIRUBIN ADULT 0.7 MG/DL (0.2-1.0); TOTAL PROTEIN 7.3 GM/DL (6.4-8.2)
[2017-03-03] MEDS ORDERED: POTASSIUM CHLORIDE 20 MEQ CONTROLLED RELEASE TAB PO ONE ×2 (00:30→21:15)
[2017-03-03 02:45] VITALS: BP 129/78; PULSE 96; RESP 17; TEMP 98.3; O2SAT 95
[2017-03-03 06:36] VITALS: BP 124/72; PULSE 90; RESP 17; TEMP 99.1; O2SAT 96
[2017-03-03 10:25] VITALS: BP 122/75; PULSE 92; RESP 18; O2SAT 95
[2017-03-03] MEDS ORDERED: LORazepam 2 MG/ML VIAL IM PRN (12:00)
[2017-03-03] MEDS ORDERED: ACETAMINOPHEN/HYDROcodone 325 MG/7.5 MG TAB PO PRN (12:00)
[2017-03-03] MEDS ORDERED: ALUMINUM/MAGNESIUM/SIMETH 30 ML CUP PO PRN (12:00)
[2017-03-03] MEDS ORDERED: ACETAMINOPHEN 325 MG TAB PO PRN (12:00)
[2017-03-03] MEDS ORDERED: LORazepam 1 MG TAB PO PRN ×2 (12:00→21:00)
[2017-03-03] MEDS ORDERED: diphenhydrAMINE HCL 50 MG CAP PO PRN (12:00)
[2017-03-03] MEDS ORDERED: diphenhydrAMINE HCL 50 MG/ML VIAL IM PRN (12:00)
[2017-03-03] MEDS ORDERED: MAGNESIUM HYDROXIDE SUSP 30 ML CUP PO PRN (12:00)
--- NOTE | 2017-03-03 12:06 | HHI.HP ---
Provisional Diagnosis Admission Date Mar 03, 2017 at 11:49 [place]. Bipolar disorder, mixed type Certification of Person's Competence To Provide Express and Informed Consent I have personally examined Joseph Quigley , a person being served at [facility] on, Mar 03, 2017 11:56. Express and informed consent means consent voluntarily given in writing, by a competent person, after sufficient explanation and disclosure of the subject matter involved to enable the person to make a knowing and willful decision without any element of force, fraud, deceit, duress, or other form of constraint or coercion. This person is 18 years of age or older, is not now known to be incompetent to consent to treatment with a guardian advocate, and does not have a health care surrogate or proxy currently making medical treatment decisions. I have found this person to be one of the following: X] Competent to provide express and informed consent, as defined above, for voluntary admission to this facility and is competent to provide express and informed consent for treatment. He/she has the consistent capacity to make well reasoned, willful, and knowing decisions concerning his or her medical or mental health treatment. The person fully and consistently understands the purpose of the admission for examination/placement and is fully capable of personally exercising all rights assured [place] Incompetent to provide express and informed consent to voluntary admission, and this is incompetent to provide express and informed consent to treatment. The person must be transferred to involuntary status and a petition for a guardian advocate filed with the Circuit Court. [] Refusing to provide express and informed consent to voluntary admission but is competent to provide express and informed consent for treatment. The person must be discharged or transferred to involuntary status. Form shall be completed within 24 hours of a person's arrival at the receiving facility and filed in the clinical record of each person: 1. Admitted on a voluntary basis 2. Permitted to provide express and informed consent to his/her own treatment 3. Allowed to transfer from involuntary to voluntary status 4. Prior to permitting a person to consent to his or her own treatment after having been previously found incompetent to consent to treatment. History of Present Illness Capacity: Has Capacity HPI 61-year-old male with history of bipolar disorder, presented yesterday voluntarily in a highly agitated, highly depressed, anxious and suicidal as well as grossly psychotic state. Patient was given Benadryl, Zyprexa and Ativan to calm him. However, he was very delusional and psychotic then and he remains so. His delusions are focused around "christianity people" who are attempting to harm him, stalking him, persecuted him and will not go away. He reports being able to see these people when no one else can. He is adamant these people are real. He is even aware others do not believe him but states he has come in contact with 2 other people who acknowledge the reality of his situation. As a result of this psychotic thinking, he has become markedly depressed with suicidal ideation and plan. He describes symptoms of depressed mood, anhedonia, anxiety, social withdrawal, feelings of hopelessness and helplessness, inability to concentrate, marked sleep disturbance, etc. He states his medications are not helping and these are apparently prescribed by a [place] hospital. Review of Systems ROS Limitations: Clinical Condition Psychiatric: COMPLAINS OF: Anxiety, Mood changes, Hallucinations, Suicidal Ideation, Delusions Except as stated in HPI: all other systems reviewed are Neg Past Psych History Psychological trauma history Unknown psychological trauma. Patient is poor historian. Violence risk - others (6 mos) Patient was markedly agitated before receiving medications, physically threatening staff members. Violence risk - self (6 mos) High Substance Abuse History Drugs/Alcohol past 12 months Patient admits to drinking alcohol but is unable to provide an accurate history. Past Family Social History Coded Allergies: No Known Allergies (Unverified , 05/27/16) Active Scripts Sennosides-Docusate Sodium (Senna Plus 8.6-50 mg) 1 Tab Tab, 2 TAB PO BID for Constipation for 30 Days, TAB Prov:Carlee Crespo GROUP HOME WORKER 06/01/16 Pantoprazole Inj (Protonix Inj) 40 Mg Inj, 40 MG PO Q24H for Prevent Stress Ulcers for 30 Days, INJECTION Prov:Carlee Crespo GROUP HOME WORKER 06/01/16 Methocarbamol (Methocarbamol) 500 Mg Tab, 500 MG PO Q8HR for Muscle Spasm for 15 Days, TAB Prov:Carlee Crespo GROUP HOME WORKER 06/01/16 Lactulose Liq (Lactulose Liq) 10 Gm/15 Ml Soln, 30 ML PO DAILY for Constipation for 30 Days, ML Prov:Carlee Crespo GROUP HOME WORKER 06/01/16 Gabapentin (Gabapentin) 100 Mg Cap, 200 MG PO TID for Pain for 30 Days, CAP Prov:Carlee Crespo GROUP HOME WORKER 06/01/16 Hydrocodone-Acetaminophen ([place]) 7.5-325 mg Tab, 1 TAB PO Q4H Y for PAIN, #50 TAB 0 Refills Prov:Abran Bailey MD 05/27/16 Reported Medications Trazodone (Trazodone) 100 Mg Tab, 100 MG PO HS for Control Depression, #30 TAB 0 Refills 05/27/16 [place] Carbonate ER ([place] Carbonate ER) 300 Mg Tab, 300 MG PO BID, TAB 0 Refills 05/27/16 Bupropion HCl ER 12 HR (Bupropion HCl ER 12 HR) 150 Mg Tab, 150 MG PO Q12HR, TAB 0 Refills 05/27/16 Discontinued Reported Medications Escitalopram (Escitalopram) 20 Mg Tab, 20 MG PO DAILY, #30 TAB 0 Refills 05/27/16 Discontinued Scripts Enoxaparin Inj (Lovenox Inj) 40 Mg/0.4 Ml Syr, 40 MG SQ Q24H for Prevent Blood Clot for 30 Days, INJECTION Prov:CarlynOcampoCarlee joy RUBEN 06/01/16 Current Medications Medications (Trade) Dose Ordered Sig/Isamar Route Start Time Stop Time Status Last Admin (Ativan) 1 mg Q6H PRN PO 03/03/17 12:00 UNV (Ativan Inj) 1 mg Q6H PRN IM 03/03/17 12:00 UNV (Benadryl) 50 mg Q6H PRN PO 03/03/17 12:00 UNV (Benadryl Inj) 50 mg Q6H PRN IM 03/03/17 12:00 UNV (Tylenol) 650 mg Q4H PRN PO 03/03/17 12:00 UNV (Milk Of Magnesia Liq) 30 ml DAILY PRN PO 03/03/17 12:00 UNV (Mag-Al Plus Susp Liq) 30 ml Q6H PRN PO 03/03/17 12:00 UNV Family Psych History Patient admits to mood disorders run in his family. Social History Patient is a . He denies a substance abuse problem. He is unemployed and disabled from work. He has very minimal family support. Patient's Strengths (min. 2) Verbal and has access to healthcare. Physical Exam GENERAL: SKIN: Warm and dry. HEAD: Normocephalic. EYES: No scleral icterus. No injection or drainage. NECK: Supple, trachea midline. No JVD or lymphadenopathy. CARDIOVASCULAR: Regular rate and rhythm without murmurs, gallops, or rubs. RESPIRATORY: Breath sounds equal bilaterally. No accessory muscle use. GASTROINTESTINAL: Abdomen soft, non-tender, nondistended. MUSCULOSKELETAL: No cyanosis, or edema. BACK: Nontender without obvious deformity. No CVA tenderness. Vital Signs Vital Signs Date Time Temp Pulse Resp B/P (MAP) Pulse Ox O2 Delivery O2 Flow Rate FiO2 03/03/17 10:25 92 18 122/75 (91) 95 Room Air 03/03/17 06:36 99.1 Lab Results Test 03/02/17 12:21 03/02/17 14:05 03/02/17 23:25 White Blood Count 8.3 TH/MM3 Red Blood Count 3.97 MIL/MM3 Hemoglobin 13.6 GM/DL Hematocrit 37.9 % Mean Corpuscular Volume 95.4 FL Mean Corpuscular Hemoglobin 34.2 PG Mean Corpuscular Hemoglobin Concent 35.8 % Red Cell Distribution Width 14.7 % Platelet Count 81 TH/MM3 Mean Platelet Volume 8.3 FL Neutrophils (%) (Auto) 73.6 % Lymphocytes (%) (Auto) 15.3 % Monocytes (%) (Auto) 8.0 % Eosinophils (%) (Auto) 2.8 % Basophils (%) (Auto) 0.3 % Neutrophils # (Auto) 6.1 TH/MM3 Lymphocytes # (Auto) 1.3 TH/MM3 Monocytes # (Auto) 0.7 TH/MM3 Eosinophils # (Auto) 0.2 TH/MM3 Basophils # (Auto) 0.0 TH/MM3 CBC Comment AUTO DIFF Differential Comment AUTO DIFF CONFIRMED Platelet Estimate LOW Platelet Morphology Comment NORMAL Blood Urea Nitrogen 21 MG/DL 21 MG/DL Creatinine 0.88 MG/DL 0.97 MG/DL Random Glucose 96 MG/DL 88 MG/DL Calcium Level 9.2 MG/DL 8.7 MG/DL Sodium Level 134 MEQ/L 139 MEQ/L Potassium Level 2.7 MEQ/L 2.9 MEQ/L Chloride Level 95 MEQ/L 97 MEQ/L Carbon Dioxide Level 31.7 MEQ/L 33.6 MEQ/L Anion Gap 7 MEQ/L 8 MEQ/L Estimat Glomerular Filtration Rate 89 ML/MIN 79 ML/MIN [place] Level LESS THAN 0.1 MEQ/L Ethyl Alcohol Level LESS THAN 3 MG/DL Urine Opiates Screen NEG Urine Barbiturates Screen NEG Urine Amphetamines Screen NEG Urine Benzodiazepines Screen NEG Urine Cocaine Screen NEG Urine Cannabinoids Screen NEG Total Protein 7.3 GM/DL Albumin 3.5 GM/DL Magnesium Level 1.7 MG/DL Alkaline Phosphatase 75 U/L Aspartate Amino Transf (AST/SGOT) 191 U/L Alanine Aminotransferase (ALT/SGPT) 173 U/L Total Bilirubin 0.7 MG/DL Mental Status Examination Appearance: Appropriate, Disheveled Consciousness: Alert Orientation: Person, Place, Date/Time Motor Activity: Normal gait Speech: Rapid Language: Perseveration Fund of Knowledge: Adequate Attention and Concentration: Easily Distracted Memory: Impaired Mood: Anxious Affect: Labile Thought Process & Associations: Loose associations, Circumstantial, Tangential Thought Content: Bizarre thinking, Ideas of reference, Hallucinations, Racing thoughts, Delusional Hallucination Type: Auditory, Visual Delusion Type: Bizarre, Paranoid Suicidal Ideation: Yes Suicidal Plan: Yes Suicidal Intention: Yes Homicidal Ideation: No Homicidal Plan: No Homicidal Intention: No Insight: Poor Judgment: Poor Assessment & Plan Problem List: (1) Bipolar disorder, current episode mixed, severe, with psychotic features ICD Codes: F31.64 - Bipolar disorder, current episode mixed, severe, with psychotic features Assessment & Plan Estimated LOS: days. 61-year-old psychotic male Raymond acted by this physician for suicidal ideation with plan. Patient shows significant evidence of bipolar disorder, mixed type, including racing thoughts, decreased need for sleep, increased goal-directed activity, as well as depressed mood, suicidality, etc. His medications are not working and do not appear to be prescribed in the therapeutic range. For these reasons he is being admitted for further evaluation and treatment. This physician has ordered a CBC and comprehensive metabolic panel to determine if any infectious process or metabolic process is causing or contributing to the patient's psychosis and mood disorder. Also ordered is a thyroid- stimulating hormone level, vitamin B-12 level and vitamin D level to determine if deficiencies in these areas are causing or contributing to his psychosis and mood disorder. This physician has ordered a hep us consult as the patient does have a history of his ago medicine problems. An EKG was also ordered as the patient is on PSYCHOTROPIC medicines which can adversely affect the electrical conduction system of his heart. This physician spoke with the patient's nurse, Linda, regarding his recent behavior. Case management will also be involved to assist with further information gathering and disposition planning. Ruy Nance MD Mar 03, 2017 12:06
[2017-03-03] MEDS ORDERED: LACTULOSE SYRUP 20 GM/30 ML CUP PO SCH (13:00)
[2017-03-03] MEDS ORDERED: GABAPENTIN 100 MG CAP PO SCH (13:00)
[2017-03-03] MEDS ORDERED: METHOCARBAMOL 500 MG TAB PO SCH (14:00)
[2017-03-03 14:26] VITALS: BP 135/72; PULSE 97; RESP 18; TEMP 99.7; O2SAT 97
--- NOTE | 2017-03-03 14:41 | PD.CONS ---
HPI Service [facility] Consult Requested By Primary Care Physician Liliana [facility] Diagnoses: History of Present Illness history from patient, and review of medical records. Patient is admitted to the psychiatry service for suicidal ideations. The patient is seen in 2600 units. He was sitting at the day room. Regarding his medical issues, he reports of recent cough, nasal congestion, and nausea. He stated that all the symptoms lasted for about 4 days bite they are resolved now for the past 2 days or so. He also reports of vomiting episodes. None since past 48 hours. He denies any blood in his vomitus. denies any diarrhea. Denies any black stools. Denies any urinary symptoms. No blood in his urine. Patient on admission was noted to have hypokalemia of 2.7. He was given replacements. His repeat potassium last night also remains to be low and given replacement again in ER. Patient denies any prior history of hypokalemia. He states he eats bananas at home. He is not on any diuretics at home. He reports alcohol consumption. Reports he drinks liquor about 3 or 4 drinks a day in the past 2 weeks. He is not very clear on Exact amount.. Review of Systems Except as stated in HPI: all other systems reviewed are Neg Past Family Social History Allergies: Coded Allergies: No Known Allergies (Unverified , 05/27/16) Past Medical History Denies any history of any medical conditions. Was admitted to our hospital for a trauma with scapular fracture right shoulder fracture and subdural hemorrhage back in May 2016. History of bipolar disorder History of gallstones History of diverticulosis Past Surgical History Right shoulder surgery Hernia surgery Family History Family history of CAD status post CABG in her his father. His brother has diabetes/chronic kidney disease. Mother has breast cancer. Social History Reports he smokes about 2 packs a day. Drinks about 3-4 liquor a day. Denies any drug abuse. Physical Exam Vital Signs Vital Signs Date Time Temp Pulse Resp B/P (MAP) Pulse Ox O2 Delivery O2 Flow Rate FiO2 03/03/17 14:26 99.7 97 18 135/72 (93) 97 03/03/17 13:55 03/03/17 10:25 92 18 122/75 (91) 95 Room Air 03/03/17 06:36 99.1 90 17 124/72 (89) 96 Room Air 03/03/17 02:45 98.3 96 17 129/78 (95) 95 Room Air 03/02/17 23:49 96.3 81 17 111/71 (84) 98 Room Air 03/02/17 18:00 98.7 104 16 130/76 (94) 99 Physical Exam GENERAL: This is a well-nourished, well-developed patient, in no apparent distress. SKIN: No rashes, ecchymoses or lesions. Cool and dry. HEAD: Atraumatic. Normocephalic. No temporal or scalp tenderness. EYES: . No scleral icterus. No injection or drainage. ENT: Nose without bleeding, purulent drainage or septal hematoma. Airway patent. NECK: Trachea midline. No JVD Supple, nontender, no meningeal signs. CARDIOVASCULAR: Regular rate and rhythm without murmurs, gallops, or rubs. RESPIRATORY: Clear to auscultation. Breath sounds equal bilaterally. No wheezes , rales, or rhonchi. GASTROINTESTINAL: Abdomen soft, non-tender, nondistended. No guarding. MUSCULOSKELETAL: Extremities without clubbing, cyanosis, or edema No calf tenderness NEUROLOGICAL: Awake and alert.Motor and sensory grossly within normal limits. Normal speech. Laboratory Laboratory Tests Test 03/02/17 23:25 Blood Urea Nitrogen 21 Creatinine 0.97 Random Glucose 88 Total Protein 7.3 Albumin 3.5 Calcium Level 8.7 Magnesium Level 1.7 Alkaline Phosphatase 75 Aspartate Amino Transf (AST/SGOT) 191 Alanine Aminotransferase (ALT/SGPT) 173 Total Bilirubin 0.7 Sodium Level 139 Potassium Level 2.9 Chloride Level 97 Carbon Dioxide Level 33.6 Anion Gap 8 Estimat Glomerular Filtration Rate 79 Result Diagram: 03/02/17 1221 03/02/17 2325 Imaging Last [address] 03/02/17 0000 Signed Impressions: Service Date/Time: Thursday, March 02, 2017 23:28 - CONCLUSION: No acute disease. Fausto Jay MD Assessment and Plan Assessment and Plan Impression: Suicidal ideation. Management per psychiatrist. Hypokalemia. Likely secondary to chronic alcohol use and recent vomiting episodes. Was admitted to our hospital for a trauma with scapular fracture right shoulder fracture and subdural hemorrhage back in May 2016. History of bipolar disorder History of gallstones History of diverticulosis Plan: Repeat stat potassium and magnesium levels. Awaiting on results still. Nursing orders have been written to page with results. Watch for DT. [facility] protocol. DVT prophylaxis with ambulation. Discussed Condition With patient Young Lees MD Mar 03, 2017 14:41
[2017-03-03] MEDS ORDERED: FLUMAZENIL 0.5 MG/5 ML VIAL IV PUSH PRN (21:00)
[2017-03-03] MEDS ORDERED: LORazepam 2 MG/ML VIAL IV PUSH PRN ×4 (21:00)
[2017-03-03] MEDS ORDERED: LORazepam 2 MG TAB PO PRN (21:00)
[2017-03-03] MEDS ORDERED: QUEtiapine FUMARATE 100 MG TAB PO SCH (21:00)
[2017-03-03] MEDS: traZODone HCL 100 MG TAB PO SCH (21:22)
[2017-03-03] MEDS: GABAPENTIN 100 MG CAP PO SCH (21:22)
[2017-03-03] MEDS: DOCUSATE SODIUM 50 MG/SENNA 8.6 MG TAB PO SCH (21:22)
[2017-03-03 21:47] LABS: BICARBONATE 31.1 MEQ/L (21.0-32.0); CALCIUM 8.8 MG/DL (8.5-10.1); CREATININE 0.97 MG/DL (0.60-1.30); MAGNESIUM 1.8 MG/DL (1.5-2.5)
[2017-03-04 05:31] VITALS: BP 126/87; PULSE 75; RESP 16; TEMP 97.9; O2SAT 97
[2017-03-04] MEDS: GABAPENTIN 100 MG CAP PO SCH ×2 (09:07→21:30)
[2017-03-04] MEDS: DOCUSATE SODIUM 50 MG/SENNA 8.6 MG TAB PO SCH ×2 (09:07→21:29)
[2017-03-04 10:22] LABS: AUTOMATED NEUTROPHIL # 6.1 TH/MM3 (1.8-7.7); BASOPHIL % 0.2 % (0.0-2.0); EOSINOPHIL # 0.2 TH/MM3 (0-0.4); HEMATOCRIT 39.4 % (39.0-51.0); HEMOGLOBIN 13.7 GM/DL (13.0-17.0); LYMPH % 11.6 % (9.0-44.0); LYMPHOCYTE # 0.9 TH/MM3 (1.0-4.8); MEAN CORPUSCULAR HGB CONC 34.7 % (32.0-36.0); MEAN PLATELET VOLUME 8.6 FL (7.0-11.0); MONO % 10.5 % (0.0-8.0); MONOCYTE # 0.8 TH/MM3 (0-0.9); NEUT % 75.7 % (16.0-70.0); PLATELET COUNT 113 TH/MM3 (150-450); RED BLOOD COUNT 4.02 MIL/MM3 (4.50-5.90); RED CELL DISTRIBUTION WIDTH 14.6 % (11.6-17.2); WHITE BLOOD COUNT 8.1 TH/MM3 (4.0-11.0)
[2017-03-04 10:45] LABS: ALBUMIN 3.5 GM/DL (3.4-5.0); AST (GOT) 215 U/L (15-37); BICARBONATE 30.6 MEQ/L (21.0-32.0); BLOOD UREA NITROGEN 18 MG/DL (7-18); CALCIUM 8.9 MG/DL (8.5-10.1); CHLORIDE 100 MEQ/L (98-107); CREATININE 0.94 MG/DL (0.60-1.30); GLOMERULAR FILTRATION RATE 82 ML/MIN (>89); GLUCOSE,RANDOM 133 MG/DL (74-106); SODIUM (NA) 138 MEQ/L (136-145)
[2017-03-04 10:47] LABS: CHOLESTEROL 139 MG/DL (120-200); TRIGLYCERIDES 70 MG/DL (42-150)
--- NOTE | 2017-03-04 11:17 | HHI.PYPN ---
Subjective Chief Complaint: Psychosis Remarks Patient seen and examined with nurse. Chart reviewed. CIWA max in last 24 hours = 5. I note the patient was admitted under somewhat similar circumstances under Dr. Isbell in 2014. Case discussed in treatment team and with nursing staff. On my examination today, patient reports that he has been experiencing visual hallucinations of people. These people will wordlessly approach him and at times try to touch him. He believes that he is "hexed by presybeterian." He says that the number of these figures will vary between 15 and 70. He reports that he saw some of these figures in his hospital room last night. One of these figures had a long piña and was dressed in a white and red shirt, he tells me. He is understandably quite distressed by seeing these people, although he describes his mood presently as "semi-mellow." Denies any urge to hurt himself or others on the unit, although he does note that he was distressed enough about these hallucinations to contemplate suicide prior to admission. No auditory phenomena. He does occasionally feel the figures touching him. Denies side effects from medications. Says he has taken lithium in the past. Something similar happened 3 years ago, he tells me, and responded to medication. During the 2014 hospitalization, it appears he was on Depakote/Haldol. No physical complaints. Review of Systems ROS Limitations: Psychotic Except as stated in HPI: all other systems reviewed are Neg Mental Status Examination Appearance: Disheveled (mild) Consciousness: Alert Orientation: x4 Motor Activity: Normal gait Speech: Rapid (mild) Language: Adequate Fund of Knowledge: Adequate Attention and Concentration: Adequate Memory: Unremarkable (Not formally assessed) Mood: Other ("semi-mellow") Affect: Anxious Thought Process & Associations: Circumstantial Thought Content: Hallucinations, Delusional Hallucination Type: Visual, Tactile Delusion Type: Paranoid Suicidal Ideation: No Suicidal Plan: No Suicidal Intention: No Homicidal Ideation: No Homicidal Plan: No Homicidal Intention: No Insight: Fair Judgment: Impulsive Mental Status Exam Remarks No signs of withdrawal noted. Results Labs Item Value Date Time White Blood Count 8.1 TH/MM3 03/04/17917 Hemoglobin 13.7 GM/DL 03/04/17917 Platelet Count 113 TH/MM3 L # 12/22/17 0918 Sodium Level 138 MEQ/L 03/04/17 0918 Potassium Level 3.7 MEQ/L 03/04/17 0918 Chloride Level 100 MEQ/L 03/04/17 0918 Carbon Dioxide Level 30.6 MEQ/L 03/04/17 0918 Blood Urea Nitrogen 18 MG/DL 03/04/17 0918 Creatinine 0.94 MG/DL 03/04/17 0918 Estimat Glomerular Filtration Rate 82 ML/MIN L 03/04/17 0918 Aspartate Amino Transf (AST/SGOT) 215 U/L H 03/04/17 0918 Alanine Aminotransferase (ALT/SGPT) 255 U/L H 03/04/17 0918 Alkaline Phosphatase 78 U/L 03/04/17 0918 Vitamin B12 Level 1623 PG/ML H 03/04/17 0918 25-Hydroxy Vitamin D Total 33.7 ng/ML 03/04/17 0918 Thyroid Stimulating Hormone 3rd Gen 0.399 uIU/ML 03/04/17 0918 [place] Level LESS THAN 0.1 MEQ/L L 03/02/17 1221 Urine Opiates Screen NEG 03/02/17 1405 Urine Barbiturates Screen NEG 03/02/17 1405 Urine Amphetamines Screen NEG 03/02/17 1405 Urine Benzodiazepines Screen NEG 03/02/17 1405 Urine Cocaine Screen NEG 03/02/17 1405 Urine Cannabinoids Screen NEG 03/02/17 1405 Ethyl Alcohol Level LESS THAN 3 MG/DL 03/02/17 1221 Labs reviewed. Worsening but still mild transaminitis noted. Thrombocytopenia noted. Last Impressions Head CT 03/02/17 0000 Signed Impressions: Service Date/Time: Thursday, March 02, 2017 23:28 - CONCLUSION: No acute disease. Fausto Jay MD EKG sinus tach with QTcH 394ms. Vitals/IOs Vital Signs Date Time Temp Pulse Resp B/P (MAP) Pulse Ox O2 Delivery O2 Flow Rate FiO2 03/04/17 05:31 97.9 75 16 126/87 (100) 97 03/03/17 10:25 Room Air Intake and Output 03/04/17 03/04/17 03/05/17 08:00 16:00 00:00 Intake Total 240 ml Balance 240 ml Assessment & Plan Problem List: (1) Bipolar disorder, current episode mixed, severe, with psychotic features ICD Codes: F31.64 - Bipolar disorder, current episode mixed, severe, with psychotic features Assessment & Plan Titrate Seroquel over weekend to target psychosis and for mood stabilization. I think resuming Depakote he was on during last hospitalization at this juncture is inadvisable because of transaminitis and thrombocytopenia. We could consider adding back lithium as patient has reportedly been on this in the past, but I will try to continue with antipsychotic monotherapy for now. Hospitalist input noted and appreciated. Trend LFTs and check hepatitis panel. Continue to monitor on the inpatient unit. Continue other medications and care as ordered. Justification for Cont. Inpt. Impairment in reality construction. Medication changes. High risk for decompensation in less restrictive environment. Discharge Planning pending psychiatric stabilization. Request HC Surrog/Guard Advoc?: No Hosea Leyva MD Mar 04, 2017 11:17
[2017-03-04 11:18] LABS: ALKALINE PHOSPHATASE 78 U/L (45-117); ALT (GPT) 255 U/L (12-78); HDL CHOLESTEROL 69.3 MG/DL (40.0-60.0); LDL CHOLESTEROL 56 MG/DL (0-99); TOTAL BILIRUBIN ADULT 0.7 MG/DL (0.2-1.0); TOTAL PROTEIN 7.5 GM/DL (6.4-8.2)
[2017-03-04] MEDS ORDERED: QUEtiapine FUMARATE 25 MG TAB PO SCH (11:30)
--- NOTE | 2017-03-04 12:40 | HHI.PR ---
Subjective Remarks in no acute distress. resting comfortably. denies abdominal pain, nausea or vomiting. Objective Vitals Vital Signs Date Time Temp Pulse Resp B/P (MAP) Pulse Ox O2 Delivery O2 Flow Rate FiO2 03/04/17 05:31 97.9 75 16 126/87 (100) 97 03/03/17 14:26 99.7 97 18 135/72 (93) 97 03/03/17 13:55 I/O 03/03/17 03/03/17 03/03/17 03/04/17 03/04/17 03/04/17 07:00 15:00 23:00 07:00 15:00 23:00 Intake Total 480 ml Balance 480 ml Intake Oral 480 ml Result Diagram: 03/04/1718 03/04/17 0918 Imaging Last Impressions Head CT 03/02/17 0000 Signed Impressions: Service Date/Time: Thursday, March 02, 2017 23:28 - CONCLUSION: No acute disease. Fausto Jay MD Objective Remarks GENERAL: This is a well-nourished, well-developed patient, in no apparent distress. CARDIOVASCULAR: Regular rate and regular rhythm without murmurs, gallops, or rubs. RESPIRATORY: Clear to auscultation. Breath sounds equal bilaterally. No wheezes , rales, or rhonchi. GASTROINTESTINAL: Abdomen soft, non-tender, nondistended. Normal, active bowel sounds MUSCULOSKELETAL: Extremities without clubbing, cyanosis, or edema. NEURO: Alert & Oriented x4 to person, place, time, situation. Moves all ext x4 Medications and IVs Inpatient Medications Acetaminophen (Tylenol) 650 mg Q4H PRN PO Pain 1-5 or Temp >101F; Start at 12:00 Acetaminophen/ Hydrocodone Bitart ([place] 7.5-325 Mg) 1 tab Q4H PRN PO PAIN SCALE 6 TO 10; Start 03/03/17 at 12:00; Stop 03/03/17 at 12:53; Status DC Al Hydrox/Mg Hydrox/Simethicone (Mag-Al Plus Susp Liq) 30 ml Q6H PRN PO DYSPEPSIA; Start 03/03/17 at 12:00 Diphenhydramine HCl (Benadryl Inj) 50 mg Q6H PRN IM For mild anxiety and/or EPS ; Start 03/03/17 at 12:00 Diphenhydramine HCl (Benadryl) 50 mg Q6H PRN PO For mild anxiety and/or EPS; Start 03/03/17 at 12:00 Flumazenil (Romazicon Inj) 0.2 mg Q1M PRN IV PUSH SEE LABEL COMMENTS; Start at 21:00 Gabapentin (Neurontin) 100 mg BID PO Last administered on 03/04/17 09:07; Start 03/03/17 at 21:00 Lactulose (Lactulose Liq) 30 ml DAILY PO ; Start 03/03/17 at 13:00; Stop 03/03 at 13:00; Status DC Lorazepam (Ativan Inj) 2 mg Q15M PRN IV PUSH CIWA > 20; Start 03/03/17 at 21: 00 Lorazepam (Ativan) 2 mg Q2H PRN PO CIWA 11-14; Start 03/03/17 at 21:00 Magnesium Hydroxide (Milk Of Magnesia Liq) 30 ml DAILY PRN PO CONSTIPATION; Start 03/03/17 at 12:00 Methocarbamol (Robaxin) 500 mg Q8HR PO ; Start 03/03/17 at 14:00; Stop at 14:00; Status DC Olanzapine (ZyPREXA) 10 mg ONCE ONCE PO Last administered on 03/02/17 16:08 ; Start 03/02/17 at 16:15; Stop 03/02/17 at 16:16; Status DC Potassium Chloride (KCl) 40 meq ONCE ONCE PO Last administered on 03/03/17 21:24; Start 03/03/17 at 21:15; Stop 03/03/17 at 21:17; Status DC Quetiapine Fumarate (SEROquel) 50 mg DAILY PO ; Start 03/04/17 at 11:30 Senna/Docusate Sodium (Anisha-Colace) 2 tab BID PO Last administered on 09:07; Start 03/03/17 at 21:00 Trazodone HCl (Desyrel) 100 mg HS PO Last administered on 03/03/17 21:22; Start 03/03/17 at 21:00 A/P Assessment and Plan A/P Suicidal ideation. Management per psychiatrist. Hypokalemia. Likely secondary to chronic alcohol use and recent vomiting episodes- has resolved. elevated LFT's- likely due to alcohol- check hepatitis profile- monitor LFT's Was admitted to our hospital for a trauma with scapular fracture right shoulder fracture and subdural hemorrhage back in May 2016. Jennifer Vanessa MD Mar 04, 2017 12:40
--- NOTE | 2017-03-04 14:18 | PD.TTN ---
Patient Problems 1. Discharge planning 2. Medication compliance 3. Knowledge deficit 4. Lack of coping skills Progress Toward Goals Provider Present: Dr. Rachel Leyva Provider Input: 03/04/17 - Dr. Alejandre reported the patient was previously seen by Dr. Isbell in 2013. Dr. Suarez will assess patient today. Psychiatric Counselors Present: MICHAEL Interiano Psych Therapist Input: 03/04/17 - Counselor will conduct biopsychosocial assessment today. Group Spec/RT/OT/KIM Present: JUDY Arauz Group Spec/RT/OT/KIM Input: 03/04/17 - patient is a new admission Documentation Scribe: MICHAEL Interiano Date Resolved: Mar 04, 2017 Mariam Raman Mar 04, 2017 14:18
[2017-03-04 15:38] VITALS: BP 102/54; PULSE 90; RESP 16; TEMP 98.9; O2SAT 99
--- NOTE | 2017-03-04 17:39 | EKG ---
Date Performed: 03/04/2017 Time Performed: 10:47:58 PTAGE: 61 years EKG: SINUS TACHYCARDIA ABNORMAL RHYTHM ECG PREVIOUS TRACING : 05/27/2016 06.37 Compared to prior tracing no significant change DOCTOR: Vickey Artis Interpretating Date/Time 03/04/2017 17:39:18
[2017-03-04] MEDS: traZODone HCL 100 MG TAB PO SCH (21:29)
[2017-03-04] MEDS: QUEtiapine FUMARATE 100 MG TAB PO SCH (21:30)
[2017-03-05 06:08] VITALS: BP 144/82; PULSE 75; RESP 18; TEMP 97.4; O2SAT 98
[2017-03-05] MEDS: QUEtiapine FUMARATE 100 MG TAB PO SCH ×2 (09:14→20:54)
[2017-03-05] MEDS: DOCUSATE SODIUM 50 MG/SENNA 8.6 MG TAB PO SCH ×2 (09:15→20:54)
[2017-03-05] MEDS: GABAPENTIN 100 MG CAP PO SCH ×2 (09:15→20:54)
--- NOTE | 2017-03-05 11:12 | HHI.PR ---
Subjective Remarks in no acute distress. denies abdominal pain, nausea or vomiting. not anxious. d/w the RN at the bedside. Objective Vitals Vital Signs Date Time Temp Pulse Resp B/P (MAP) Pulse Ox O2 Delivery O2 Flow Rate FiO2 03/05/17 06:08 97.4 75 18 144/82 (102) 98 03/04/17 15:38 98.9 90 16 102/54 (70) 99 I/O 03/04/17 03/04/17 03/04/17 03/05/17 03/05/17 03/05/17 07:00 15:00 23:00 07:00 15:00 23:00 Intake Total 480 ml Balance 480 ml Intake Oral 480 ml Result Diagram: 03/04/1718 03/04/1718 Imaging Last Impressions Head CT 03/02/17 0000 Signed Impressions: Service Date/Time: Thursday, March 02, 2017 23:28 - CONCLUSION: No acute disease. Fausto Jay MD Objective Remarks GENERAL: This is a well-nourished, well-developed patient, in no apparent distress. CARDIOVASCULAR: Regular rate and regular rhythm without murmurs, gallops, or rubs. RESPIRATORY: Clear to auscultation. Breath sounds equal bilaterally. No wheezes , rales, or rhonchi. GASTROINTESTINAL: Abdomen soft, non-tender, nondistended. Normal, active bowel sounds MUSCULOSKELETAL: Extremities without clubbing, cyanosis, or edema. NEURO: Alert & Oriented x4 to person, place, time, situation. Moves all ext x4 Medications and IVs Inpatient Medications Acetaminophen (Tylenol) 650 mg Q4H PRN PO Pain 1-5 or Temp >101F; Start at 12:00 Acetaminophen/ Hydrocodone Bitart ([place] 7.5-325 Mg) 1 tab Q4H PRN PO PAIN SCALE 6 TO 10; Start 03/03/17 at 12:00; Stop 03/03/17 at 12:53; Status DC Al Hydrox/Mg Hydrox/Simethicone (Mag-Al Plus Susp Liq) 30 ml Q6H PRN PO DYSPEPSIA; Start 03/03/17 at 12:00 Diphenhydramine HCl (Benadryl Inj) 50 mg Q6H PRN IM For mild anxiety and/or EPS ; Start 03/03/17 at 12:00 Diphenhydramine HCl (Benadryl) 50 mg Q6H PRN PO For mild anxiety and/or EPS; Start 03/03/17 at 12:00 Flumazenil (Romazicon Inj) 0.2 mg Q1M PRN IV PUSH SEE LABEL COMMENTS; Start at 21:00 Gabapentin (Neurontin) 100 mg BID PO Last administered on 03/05/17 09:15; Start 03/03/17 at 21:00 Lactulose (Lactulose Liq) 30 ml DAILY PO ; Start 03/03/17 at 13:00; Stop 03/03 at 13:00; Status DC Lorazepam (Ativan Inj) 2 mg Q15M PRN IV PUSH CIWA > 20; Start 03/03/17 at 21: 00 Lorazepam (Ativan) 2 mg Q2H PRN PO CIWA 11-14; Start 03/03/17 at 21:00 Magnesium Hydroxide (Milk Of Magnesia Liq) 30 ml DAILY PRN PO CONSTIPATION; Start 03/03/17 at 12:00 Methocarbamol (Robaxin) 500 mg Q8HR PO ; Start 03/03/17 at 14:00; Stop at 14:00; Status DC Olanzapine (ZyPREXA) 10 mg ONCE ONCE PO Last administered on 03/02/17 16:08 ; Start 03/02/17 at 16:15; Stop 03/02/17 at 16:16; Status DC Potassium Chloride (KCl) 40 meq ONCE ONCE PO Last administered on 03/03/17 21:24; Start 03/03/17 at 21:15; Stop 03/03/17 at 21:17; Status DC Quetiapine Fumarate (SEROquel) 200 mg HS PO ; Start 03/06/17 at 21:00; Stop 03/16/17 at 20:59 Senna/Docusate Sodium (Anisha-Colace) 2 tab BID PO Last administered on 09:15; Start 03/03/17 at 21:00 Trazodone HCl (Desyrel) 100 mg HS PO Last administered on 03/04/17 21:29; Start 03/03/17 at 21:00 A/P Assessment and Plan A/P Suicidal ideation. Management per psychiatrist. Hypokalemia. Likely secondary to chronic alcohol use and recent vomiting episodes- has resolved. elevated LFT's- likely due to alcohol- check hepatitis profile- monitor LFT's Was admitted to our hospital for a trauma with scapular fracture right shoulder fracture and subdural hemorrhage back in May 2016. Jennifer Vanessa MD Mar 05, 2017 11:12
--- NOTE | 2017-03-05 12:33 | HHI.PYPN ---
Subjective Chief Complaint: Psychosis Remarks Patient was seen and case discussed with nursing. Patient is quite guarded and blunted. He is somewhat suspicious during the interview. Today he denies visual hallucinations but admits to having them yesterday. Continues to have a fixed delusion that someone placed voodo on him. Patient says he is eating and sleeping well. Mental Status Examination Appearance: Appropriate Consciousness: Alert Orientation: x4 Motor Activity: Normal gait Speech: Unremarkable Language: Adequate Fund of Knowledge: Adequate Attention and Concentration: Adequate Memory: Unremarkable (Not formally assessed) Mood: Other ("semi-mellow") Affect: Blunt, Anxious Thought Process & Associations: Circumstantial Thought Content: Hallucinations, Delusional Hallucination Type: Visual (improving), Tactile Delusion Type: Paranoid Suicidal Ideation: No Suicidal Plan: No Suicidal Intention: No Homicidal Ideation: No Homicidal Plan: No Homicidal Intention: No Insight: Fair Judgment: Impulsive Results Labs Test 03/05/17 06:58 Vitals/IOs Vital Signs Date Time Temp Pulse Resp B/P (MAP) Pulse Ox O2 Delivery O2 Flow Rate FiO2 03/05/17 06:08 97.4 75 18 144/82 (102) 98 03/03/17 10:25 Room Air Intake and Output 03/05/17 03/05/17 03/06/17 08:00 16:00 00:00 Intake Total 480 ml Balance 480 ml Assessment & Plan Problem List: (1) Bipolar disorder, current episode mixed, severe, with psychotic features ICD Codes: F31.64 - Bipolar disorder, current episode mixed, severe, with psychotic features Assessment & Plan Continue current treatment plan Justification for Cont. Inpt. Patient would decompensate in a less restrictive setting Request HC Surrog/Guard Advoc?: No Bernard Noe DO Mar 05, 2017 12:33
[2017-03-05 12:35] LABS: ALBUMIN 3.7 GM/DL (3.4-5.0); DIRECT BILIRUBIN ADULT 0.2 MG/DL (0.0-0.2)
[2017-03-05 12:37] LABS: INDIRECT BILIRUBIN 0.3 MG/DL (0.0-0.8); TOTAL BILIRUBIN ADULT 0.5 MG/DL (0.2-1.0); TOTAL PROTEIN 7.2 GM/DL (6.4-8.2)
[2017-03-05 17:50] VITALS: BP 119/74; PULSE 88; RESP 17; TEMP 98.2; O2SAT 97
[2017-03-05] MEDS: traZODone HCL 100 MG TAB PO SCH (20:54)
[2017-03-06 06:24] VITALS: BP 112/63; PULSE 76; RESP 17; TEMP 97.5; O2SAT 99
[2017-03-06] MEDS: DOCUSATE SODIUM 50 MG/SENNA 8.6 MG TAB PO SCH ×2 (09:04→20:59)
[2017-03-06] MEDS: QUEtiapine FUMARATE 100 MG TAB PO SCH (09:05)
[2017-03-06] MEDS: GABAPENTIN 100 MG CAP PO SCH ×2 (09:05→20:59)
--- NOTE | 2017-03-06 11:25 | HHI.PYPN ---
Subjective Chief Complaint: Psychosis Remarks Patient was seen and case discussed with nursing. Patient continues to improve. He no longer feels persecuted or that his life is in danger. He is not speaking about voodo and denies visual hallucinations. Tolerating medications well. Perseverative on discharge Mental Status Examination Appearance: Appropriate Consciousness: Alert Orientation: x4 Motor Activity: Normal gait Speech: Unremarkable Language: Adequate Fund of Knowledge: Adequate Attention and Concentration: Adequate Memory: Unremarkable (Not formally assessed) Mood: Other ("semi-mellow") Affect: Blunt, Anxious Thought Process & Associations: Circumstantial Thought Content: Appropriate Hallucination Type: None, Tactile Delusion Type: Paranoid (vigilance) Suicidal Ideation: No Suicidal Plan: No Suicidal Intention: No Homicidal Ideation: No Homicidal Plan: No Homicidal Intention: No Insight: Fair Judgment: Impulsive Results Vitals/IOs Vital Signs Date Time Temp Pulse Resp B/P (MAP) Pulse Ox O2 Delivery O2 Flow Rate FiO2 03/06/17 06:24 97.5 76 17 112/63 (79) 99 03/03/17 10:25 Room Air Assessment & Plan Problem List: (1) Bipolar disorder, current episode mixed, severe, with psychotic features ICD Codes: F31.64 - Bipolar disorder, current episode mixed, severe, with psychotic features Assessment & Plan Continue current treatment plan Justification for Cont. Inpt. Patient would decompensate in a less restrictive setting Request HC Surrog/Guard Advoc?: No Bernard Noe DO Mar 06, 2017 11:25
--- NOTE | 2017-03-06 11:28 | HHI.PR ---
Subjective Remarks in no acute distress. comfortable with no new complaints. d/w the RN and no acute issues over night. Objective Vitals Vital Signs Date Time Temp Pulse Resp B/P (MAP) Pulse Ox O2 Delivery O2 Flow Rate FiO2 03/06/17 06:24 97.5 76 17 112/63 (79) 99 03/05/17 17:50 98.2 88 17 119/74 (89) 97 I/O 03/05/17 03/05/17 03/05/17 03/06/17 03/06/17 03/06/17 07:00 15:00 23:00 07:00 15:00 23:00 Intake Total 480 ml 240 ml Balance 480 ml 240 ml Intake Oral 480 ml 240 ml Result Diagram: 03/04/1791703/04/1718 Imaging Last Impressions Head CT 03/02/17 0000 Signed Impressions: Service Date/Time: Thursday, March 02, 2017 23:28 - CONCLUSION: No acute disease. Fausto Jay MD Objective Remarks GENERAL: This is a well-nourished, well-developed patient, in no apparent distress. CARDIOVASCULAR: Regular rate and regular rhythm without murmurs, gallops, or rubs. RESPIRATORY: Clear to auscultation. Breath sounds equal bilaterally. No wheezes , rales, or rhonchi. GASTROINTESTINAL: Abdomen soft, non-tender, nondistended. Normal, active bowel sounds MUSCULOSKELETAL: Extremities without clubbing, cyanosis, or edema. NEURO: Alert & Oriented x4 to person, place, time, situation. Moves all ext x4 Medications and IVs Inpatient Medications Acetaminophen (Tylenol) 650 mg Q4H PRN PO Pain 1-5 or Temp >101F; Start at 12:00 Acetaminophen/ Hydrocodone Bitart ([place] 7.5-325 Mg) 1 tab Q4H PRN PO PAIN SCALE 6 TO 10; Start 03/03/17 at 12:00; Stop 03/03/17 at 12:53; Status DC Al Hydrox/Mg Hydrox/Simethicone (Mag-Al Plus Susp Liq) 30 ml Q6H PRN PO DYSPEPSIA; Start 03/03/17 at 12:00 Diphenhydramine HCl (Benadryl Inj) 50 mg Q6H PRN IM For mild anxiety and/or EPS ; Start 03/03/17 at 12:00 Diphenhydramine HCl (Benadryl) 50 mg Q6H PRN PO For mild anxiety and/or EPS; Start 03/03/17 at 12:00 Flumazenil (Romazicon Inj) 0.2 mg Q1M PRN IV PUSH SEE LABEL COMMENTS; Start at 21:00 Gabapentin (Neurontin) 100 mg BID PO Last administered on 03/06/17 09:05; Start 03/03/17 at 21:00 Lactulose (Lactulose Liq) 30 ml DAILY PO ; Start 03/03/17 at 13:00; Stop 03/03 at 13:00; Status DC Lorazepam (Ativan Inj) 2 mg Q15M PRN IV PUSH CIWA > 20; Start 03/03/17 at 21: 00 Lorazepam (Ativan) 2 mg Q2H PRN PO CIWA 11-14; Start 03/03/17 at 21:00 Magnesium Hydroxide (Milk Of Magnesia Liq) 30 ml DAILY PRN PO CONSTIPATION; Start 03/03/17 at 12:00 Methocarbamol (Robaxin) 500 mg Q8HR PO ; Start 03/03/17 at 14:00; Stop at 14:00; Status DC Olanzapine (ZyPREXA) 10 mg ONCE ONCE PO Last administered on 03/02/17 16:08 ; Start 03/02/17 at 16:15; Stop 03/02/17 at 16:16; Status DC Potassium Chloride (KCl) 40 meq ONCE ONCE PO Last administered on 03/03/17 21:24; Start 03/03/17 at 21:15; Stop 03/03/17 at 21:17; Status DC Quetiapine Fumarate (SEROquel) 200 mg HS PO ; Start 03/06/17 at 21:00; Stop 03/16/17 at 20:59 Senna/Docusate Sodium (Anisha-Colace) 2 tab BID PO Last administered on 09:04; Start 03/03/17 at 21:00 Trazodone HCl (Desyrel) 100 mg HS PO Last administered on 03/05/17 20:54; Start 03/03/17 at 21:00 A/P Assessment and Plan A/P Suicidal ideation. Management per psychiatrist. Hypokalemia. Likely secondary to chronic alcohol use and recent vomiting episodes- has resolved. elevated LFT's- likely due to alcohol- follow hepatitis profile-f/u as outpatient. advised to stop drinking. Was admitted to our hospital for a trauma with scapular fracture right shoulder fracture and subdural hemorrhage back in May 2016. [facility] will sign off and see him as needed. d/w the RN. Jennifer Vanessa MD Mar 06, 2017 11:28
[2017-03-06 18:09] VITALS: BP 126/65; PULSE 89; RESP 17; TEMP 98.2; O2SAT 98
[2017-03-06] MEDS: traZODone HCL 100 MG TAB PO SCH (20:59)
[2017-03-06] MEDS ORDERED: QUEtiapine FUMARATE 100 MG TAB PO SCH (21:00)
[2017-03-07 05:36] VITALS: BP 130/70; PULSE 71; RESP 16; TEMP 98.3; O2SAT 97
[2017-03-07] MEDS: GABAPENTIN 100 MG CAP PO SCH (09:07)
[2017-03-07] MEDS: DOCUSATE SODIUM 50 MG/SENNA 8.6 MG TAB PO SCH (09:07)
[2017-03-07] MEDS: QUEtiapine FUMARATE 100 MG TAB PO SCH (09:07)
[2017-03-07] MEDS ORDERED: GABA100C4 PO (12:14)
[2017-03-07] MEDS ORDERED: TRAZ50TA12 PO (12:14)
[2017-03-07] MEDS ORDERED: QUET1TAB8 PO ×2 (12:14)
--- NOTE | 2017-03-07 12:14 | HHI.DS ---
Psychiatry Discharge Summary Inpatient Psychiatric care?: Yes Advance Directive: No Reason Not Provided: refused Mental Health AdvanceDirective: No Health Care Proxy: No Admission Admission Date Mar 03, 2017 at 11:49 Admission Diagnosis: (1) Bipolar disorder, current episode mixed, severe, with psychotic features ICD Code: F31.64 - Bipolar disorder, current episode mixed, severe, with psychotic features Brief History 61-year-old male with history of bipolar disorder, presented yesterday voluntarily in a highly agitated, highly depressed, anxious and suicidal as well as grossly psychotic state. Patient was given Benadryl, Zyprexa and Ativan to calm him. However, he was very delusional and psychotic then and he remains so. His delusions are focused around "episcopal people" who are attempting to harm him, stalking him, persecuted him and will not go away. He reports being able to see these people when no one else can. He is adamant these people are real. He is even aware others do not believe him but states he has come in contact with 2 other people who acknowledge the reality of his situation. As a result of this psychotic thinking, he has become markedly depressed with suicidal ideation and plan. He describes symptoms of depressed mood, anhedonia, anxiety, social withdrawal, feelings of hopelessness and helplessness, inability to concentrate, marked sleep disturbance, etc. He states his medications are not helping and these are apparently prescribed by a [place] hospital. Tobacco Use In Past 30 Days: 5 or More Cigarettes/Day Alcohol Use: Never Hospital Course Patient was admitted to a locked, inpatient psychiatric unit. A general medical consultation was obtained. Appropriate precautions were in place throughout patient's hospital stay. Patient was seen and examined on the unit by psychiatry and also visited by counselor. Psychotropic medications were adjusted. Patient tolerated medication changes well without side effects. Patient had improvement in presenting psychiatric symptomatology during the course of his hospital stay. There was no evidence of any suicidality or homicidality on the inpatient unit. Patient remained in generally good behavioral control and was compliant with medications. On the day of discharge : Patient seen and examined with nurse. Chart reviewed. Case discussed with nursing staff who informs me that the patient was no behavioral problem overnight. Nursing staff also tells me that the patient has completed a right of release this morning. Case discussed with counselor who has obtained collateral information from the patient's friend and roommate, Anamika, who is reportedly comfortable accepting the patient home today. On my examination today, the patient continues to request discharge from the inpatient psychiatric unit. He feels much improved versus admission and notes "I'm me now." He denies any audiovisual hallucinations at this time and says that he has not seen any figures in several days. I can elicit no delusional material. There is no evidence of ongoing impairment in reality construction. He denies any suicidal or homicidal ideation, intent or plan on direct questioning and contracts for safety. I can elicit no depressive or hypomanic/manic symptoms at this time. He denies any side effects from medications. He has no physical complaints. Suicide and violence risk assessment on day of discharge both suggest lower imminent risk, and the patient's level of function is adequate for outpatient care. The patient does not meet criteria for involuntary psychiatric hospitalization, and he is requesting discharge from the inpatient psychiatric unit today. I will therefore arrange for his discharge home today with psychiatric follow-up as arranged by counselor. Patient is also to follow-up with primary care and also with GI for his transaminitis. I have counseled the patient to abstain from any abuse of substances. I have counseled the patient to return to the psychiatric emergency room for any concerning symptoms as part of the general safety plan. Results Blood Pressure 130 / 70 Vital Signs Date Time Temp Pulse Resp B/P (MAP) Pulse Ox O2 Delivery O2 Flow Rate FiO2 03/07/17 05:36 98.3 71 16 130/70 (90) 97 03/03/17 10:25 Room Air Laboratory Tests Test 03/05/17 06:58 Aspartate Amino Transf (AST/SGOT) 199 U/L (15-37) Alanine Aminotransferase (ALT/SGPT) 276 U/L (12-78) Laboratory Results Test 03/02/17 12:21 03/04/17 09:18 [place] Level LESS THAN 0.1 MEQ/L Cholesterol Level 139 MG/DL (120-200) HDL Cholesterol 69.3 MG/DL (40.0-60.0) Hemoglobin A1c 5.0 % (4.3-6.0) LDL Cholesterol 56 MG/DL (0-99) Triglycerides Level 70 MG/DL (42-150) Summary of Procedures None done Imaging Last Impressions Head CT 03/02/17 0000 Signed Impressions: Service Date/Time: Thursday, March 02, 2017 23:28 - CONCLUSION: No acute disease. Fausto Jay MD Pending results at discharge: Yes (Hepatitis panel) Medications # of Antipsychotic meds at D/C: 1 Approp Antipsych med options 1 - Minimum of three failed multiple trials of monotherapy. 2 - Documented plan to taper to monotherapy due to previous use of multiple meds OR cross-taper in progress at D/C. 3 - Documentation of augmentation of Clozapine. 4 - Justification other than those listed in allowable values 1-3, document here : Discharge Discharge Date: Mar 07, 2017 Discharge Diagnosis: (1) Bipolar I disorder, most recent episode mixed, in remission Diagnosis: Principal ICD Code: F31.70 - Bipolar disorder, currently in remission, most recent episode unspecified Pt Condition on Discharge: Stable Discharge Disposition: Discharge Home Discharge Instructions Diet Instructions: As Tolerated, No Restrictions Activities you can perform: Weight Bearing as Josiah Scheduled Appointment: as per counselor's notes New Orders: HEPATIC FUNCTION PAL - 1 Week PLATELET COUNT - 1 Week New Medications: Gabapentin (Gabapentin) 100 Mg Cap 100 MG PO BID for Health for 15 Days, #30 CAP 1 Refill Quetiapine (Quetiapine) 100 Mg Tab 200 MG PO HS for Mental Health for 15 Days, TAB 1 Refill Quetiapine (Quetiapine) 100 Mg Tab 100 MG PO DAILY for Mental Health for 15 Days, #15 TAB 1 Refill Trazodone (Trazodone) 50 Mg Tab 100 MG PO HS for Mental Health for 15 Days, TAB 1 Refill Continued Medications: Sennosides-Docusate Sodium ([place] Plus 8.6-50 mg) 1 Tab Tab 2 TAB PO BID for Constipation for 30 Days, TAB Discontinued Medications: Bupropion HCl ER 12 HR (Bupropion HCl ER 12 HR) 150 Mg Tab 150 MG PO Q12HR, TAB 0 Refills Gabapentin (Gabapentin) 100 Mg Cap 200 MG PO TID for Pain for 30 Days, CAP Hydrocodone-Acetaminophen ([place]) 7.5-325 mg Tab 1 TAB PO Q4H PRN for PAIN, #50 TAB 0 Refills Lactulose Liq (Lactulose Liq) 10 Gm/15 Ml Soln 30 ML PO DAILY for Constipation for 30 Days, ML [place] Carbonate ER ([place] Carbonate ER) 300 Mg Tab 300 MG PO BID, TAB 0 Refills Methocarbamol (Methocarbamol) 500 Mg Tab 500 MG PO Q8HR for Muscle Spasm for 15 Days, TAB Pantoprazole Inj (Protonix Inj) 40 Mg Inj 40 MG PO Q24H for Prevent Stress Ulcers for 30 Days, INJECTION Trazodone (Trazodone) 100 Mg Tab 100 MG PO HS for Control Depression, #30 TAB 0 Refills Discharge Time <= 30 minutes Mental Status Examination Appearance: Appropriate Consciousness: Alert Orientation: x4 Motor Activity: Normal gait, Other (no motor abnormalities noted) Speech: Unremarkable Language: Adequate Fund of Knowledge: Adequate Attention and Concentration: Adequate Memory: Unremarkable (grossly intact on clinical exam) Mood: Appropriate Affect: Appropriate, Euthymic Thought Process & Associations: Intact, Logical, Goal directed, Linear Thought Content: Appropriate Hallucination Type: None Delusion Type: None Suicidal Ideation: No Suicidal Plan: No Suicidal Intention: No Homicidal Ideation: No Homicidal Plan: No Homicidal Intention: No Insight: Adequate Judgment: Adequate Discharge/Advance Care Plan Health Problems: (1) Bipolar disorder, current episode mixed, severe, with psychotic features Goals to promote your health * To prevent worsening of your condition and complications * To maintain your health at the optimal level Directions to meet your goals Take your medications as prescribed Follow your dietary instruction Follow activity as directed Keep your appointments as scheduled Take your immunizations and boosters as scheduled If your symptoms worsen call your PCP, if no PCP go to Urgent Care Center or Emergency Room For 04/10 questions related to your inpatient stay or results of tests pending at discharge, please contact Dr. Hosea Leyva at Smoking is Dangerous to Your Health. Avoid second hand smoking Hosea Leyva MD Mar 07, 2017 12:14
[2017-03-08 10:58] LABS: HEPATITIS A AB IGM NEGATIVE (NEGATIVE); HEPATITIS B CORE AB IGM NEGATIVE (NEGATIVE); HEPATITIS B SURFACE ANTIGEN NEGATIVE (NEGATIVE); HEPATITIS C AB IgG NEGATIVE (NEGATIVE)
== END 2017-03-07 16:00 | disposition home or self-care (01) | DRG 885 ==
LOC: NEPJ 11:29 → NEDA 03-03 11:49 → H260 03-03 13:45
PROVIDERS: ADMIT Psychiatry & Neurology Psychiatry; ATTEND Psychiatry & Neurology Psychiatry
DX: F31.64 Bipolar disorder, current episode mixed, severe, with psychotic features (principal); R45.851 Suicidal ideations; D69.6 Thrombocytopenia, unspecified; F17.210 Nicotine dependence, cigarettes, uncomplicated; E87.6 Hypokalemia; R11.10 Vomiting, unspecified; R74.0 Nonspecific elevation of levels of transaminase and lactic acid dehydrogenase [LDH]
CPT/HCPCS: 70450; 80048; 80053; 80061; 80074; 80076; 80178; 80307; 82306; 82607; 83036; 83735; 84443; 85025; 93005; J2060; Q0163